=== PATIENT | female | born 1995 | race Caucasian/White ===

== ENCOUNTER 2023-04-27 09:07 | Outpatient (OUT) | payer OTHER, MEDICAID, SELFPAY ==
--- NOTE | 2023-04-27 09:08 | US_ITS ---
[address] [address] Patient Name: LILIBETH BELTRAN MRN: [id number] date: 1995 Sex: F Assigned Patient Location: Current Patient Location: Accession/Order Number: [id number] Exam Date: 04/27/2023 09:09 Report Date: 04/27/2023 15:13 At the request of: JANE ORTEZ Procedure: US OB transvaginal EXAMINATION: US OB transvaginal HISTORY: MISSED MENSES COMPARISON: No relevant comparison available. FINDINGS: GESTATIONAL SAC: Present and normal appearing. YOLK SAC: Present and normal appearing. POLE: Present and normal appearing. CARDIAC: Present. UTERUS: Normal size and appearance. OVARIES: Right: Normal. Left: Not seen. CERVIX: 3.9 cm in length and closed. CUL-DE-SAC: Normal. OTHER: None. AGE BY LMP: 11 weeks 3 days ELISEO BY LMP: 11/13/2023 AGE BY US CRL: 11 weeks 3 days ELISEO BY US CRL: 11/13/2023 US/US OB transvaginal IMPRESSION: 1. Single live intrauterine . Electronically authenticated by: ANDREW STERLING Date: 04/27/2023 15:13
[2023-04-27 10:48] LABS: Basophils Absolute Auto 0.1 10^3/uL (0.0-0.1); Basophils Percent Auto 0.5 % (0.2-2.0); Eosinophils Percent Auto 0.3 % (0.9-7.0); Hematocrit 38.7 % (36.0-48.0); Hemoglobin 13.1 g/dL (12.0-16.0); Immature Granulocytes Abs Auto 0.04 10^3/uL (0.00-0.03); Immature Granulocytes Pct Auto 0.3 % (0.0-0.5); Lymphocytes Percent Auto 15.6 % (20.5-60.0); Mean Corpuscular HGB Conc 33.9 g/dL (29.9-35.2); Mean Corpuscular Hemoglobin 30.8 pg (26.7-34.0); Mean Corpuscular Volume 90.8 fL (81.0-99.0); Mean Platelet Volume 11.9 fL (9.5-13.5); Monocytes Absolute Auto 0.5 10^3/uL (0.3-0.8); Neutrophils Percent Auto 79.3 % (43.0-75.0); Platelet Count 218 10^3/uL (150-450); Red Blood Count 4.26 10^6/uL (4.20-5.40); Red Cell Distribution Width 12.9 % (11.0-15.0); White Blood Count 12.6 10^3/uL (4.0-11.0)
[2023-04-27 11:25] LABS: BOX Test Sent Out Y
[2023-04-27 11:53] LABS: Estimated Average Glucose 100 mg/dL; Glycohemoglobin A1C 5.1 % (4.5-6.2)
[2023-04-27 12:46] LABS: Thyroid Stimulating Hormone 0.795 uIU/mL (0.358-3.740)
[2023-04-28 08:12] LABS: HBsAg Screen Negative (Negative); HCV Ab Non Reactive (Non Reactive); HIV Ab/p24 Ag Screen Non Reactive (Non Reactive); Rubella Antibodies, IgG 4.04 index (Immune >0.99)
[2023-04-28 10:08] LABS: Rapid Plasma Reagin, Quant Non Reactive titer (NonRea<1:1)
== END 2023-04-27 09:08 | disposition home or self-care (01) ==
PROVIDERS: Visit Provider Obstetrics & Gynecology
DX: Z34.91 Encounter for supervision of normal pregnancy, unspecified, first trimester (principal); N92.6 Irregular menstruation, unspecified
CPT/HCPCS: 36415; 76817; 83036; 84443; 85025; 86592; 86762; 86803; 86850; 86900; 86901; 87086; 87340; 87389

== ENCOUNTER 2023-05-28 09:35 | Outpatient (OUT) | payer OTHER, MEDICAID, SELFPAY ==
[2023-05-30 00:07] LABS: AFP Value 39.8 ng/mL (.); Gest. Age on Collection Date 15.9 weeks (.); Insulin Dep Diabetes No (.); Maternal Age At EDD 29.9 yr (.); OSBR Risk 1 IN 10000 (.); Results Report (.)
== END 2023-05-28 09:36 | disposition home or self-care (01) ==
LOC: LAB 09:35
PROVIDERS: Visit Provider Obstetrics & Gynecology
DX: Z01.419 Encounter for gynecological examination (general) (routine) without abnormal findings (principal); Z34.92 Encounter for supervision of normal pregnancy, unspecified, second trimester
CPT/HCPCS: 36415; 82105; G0145

== ENCOUNTER 2023-05-28 20:17 | Outpatient (REF) | payer OTHER, MEDICAID, SELFPAY ==
[2023-06-01 16:09] LABS: Age Gdln ACOG Testing Note (.); IGP, rfx Aptima HPV ASCU Note (.)
== END 2023-05-28 20:18 | disposition home or self-care (01) ==
LOC: LAB 20:17
PROVIDERS: Visit Provider Obstetrics & Gynecology
DX: Z01.419 Encounter for gynecological examination (general) (routine) without abnormal findings (principal)
CPT/HCPCS: G0145

== ENCOUNTER 2023-06-27 08:25 | Outpatient (OUT) | payer OTHER, MEDICAID, SELFPAY ==
--- NOTE | 2023-06-27 08:28 | US_ITS ---
[address] [address] Patient Name: LILIBETH BELTRAN MRN: [id number] date: 1995 Sex: F Assigned Patient Location: Current Patient Location: Accession/Order Number: [id number] Exam Date: 06/27/2023 08:29 Report Date: 06/27/2023 15:40 At the request of: JANE ORTEZ Procedure: US OB cervical length EXAMINATION: US OB anatomy, US OB cervical length HISTORY: ANATOMY COMPARISON: No relevant comparison available. TECHNIQUE: Transabdominal sonographic examination was performed for obstetrical and evaluation. FINDINGS: Number: 1 Heart Rate: 151.0 bpm H.B. /min Amniotic Fluid Volume: Subjectively normal Placental Location: anterior with lower margin 5.6 cm from os. Cervix Length: 5 cm , closed. ANATOMY: Normal Structures -cerebellum, choroid plexus, cisterna magna, lateral cerebral ventricles, orbits, midline falx, hard palate, four-chamber heart, RVOT, LVOT, stomach, kidneys, bladder, umbilical cord insertion into abdomen, three-vessel cord, cervical spine, thoracic spine, lumbar spine, sacral spine, right upper extremity, left upper extremity, right lower extremity, left lower extremity. SUBOPTIMALLY SEEN: None ABNORMALITIES: None BIOMETRY: BPD: 4.4 cm 19 weeks 3 days HC: 17.6 cm 20 weeks 1 days AC: 15.3 cm 20 weeks 4 days FL: 3.2 cm 20 weeks 0 days EFW:341.7 grams; 52% FL/AC: 21.0 FL/BPD: 72.7 HC/AC: 1.2 GESTATIONAL AGE: Age by EDC: 20 weeks 1 days ELISEO by EDC: 11/13/2023 Age by current US: 20 weeks 0 days ELISEO by current US: 11/14/2023 US/US OB cervical length IMPRESSION: 1. Single live intrauterine with growth detailed above. Electronically authenticated by: ANDREW STERLING Date: 06/27/2023 15:40
--- NOTE | 2023-06-27 08:28 | US_ITS ---
[address] [address] Patient Name: LILIBETH BELTRAN MRN: [id number] date: 1995 Sex: F Assigned Patient Location: Current Patient Location: Accession/Order Number: [id number] Exam Date: 06/27/2023 08:29 Report Date: 06/27/2023 15:40 At the request of: JANE ORTEZ Procedure: US OB anatomy EXAMINATION: US OB anatomy, US OB cervical length HISTORY: ANATOMY COMPARISON: No relevant comparison available. TECHNIQUE: Transabdominal sonographic examination was performed for obstetrical and evaluation. FINDINGS: Number: 1 Heart Rate: 151.0 bpm H.B. /min Amniotic Fluid Volume: Subjectively normal Placental Location: anterior with lower margin 5.6 cm from os. Cervix Length: 5 cm , closed. ANATOMY: Normal Structures -cerebellum, choroid plexus, cisterna magna, lateral cerebral ventricles, orbits, midline falx, hard palate, four-chamber heart, RVOT, LVOT, stomach, kidneys, bladder, umbilical cord insertion into abdomen, three-vessel cord, cervical spine, thoracic spine, lumbar spine, sacral spine, right upper extremity, left upper extremity, right lower extremity, left lower extremity. SUBOPTIMALLY SEEN: None ABNORMALITIES: None BIOMETRY: BPD: 4.4 cm 19 weeks 3 days HC: 17.6 cm 20 weeks 1 days AC: 15.3 cm 20 weeks 4 days FL: 3.2 cm 20 weeks 0 days EFW:341.7 grams; 52% FL/AC: 21.0 FL/BPD: 72.7 HC/AC: 1.2 GESTATIONAL AGE: Age by EDC: 20 weeks 1 days ELISEO by EDC: 11/13/2023 Age by current US: 20 weeks 0 days ELISEO by current US: 11/14/2023 US/US OB anatomy IMPRESSION: 1. Single live intrauterine with growth detailed above. Electronically authenticated by: ANDREW STERLING Date: 06/27/2023 15:40
== END 2023-06-27 08:26 | disposition home or self-care (01) ==
LOC: US 08:25
PROVIDERS: Visit Provider Obstetrics & Gynecology
DX: Z34.92 Encounter for supervision of normal pregnancy, unspecified, second trimester (principal); Z3A.20 20 weeks gestation of pregnancy
CPT/HCPCS: 76805; 76817

== ENCOUNTER 2023-10-09 16:59 | Outpatient (OUT) | payer OTHER, MEDICAID, SELFPAY ==
--- NOTE | 2023-10-09 17:04 | US_ITS ---
[address] [address] Patient Name: LILIBETH BELTRAN MRN: [id number] date: 1995 Sex: F Assigned Patient Location: Current Patient Location: Accession/Order Number: [id number] Exam Date: 10/09/2023 17:23 Report Date: 10/10/2023 07:26 At the request of: JANE ORTEZ Procedure: US OB growth EXAMINATION: US OB growth HISTORY: small for gestational age P05.10 COMPARISON: Ultrasound OB anatomy 06/27/2023 FINDINGS: Heart Rate: 133.0 bpm Number: 1.0 Position: CEPHALIC Amniotic Fluid Volume: 18.1 cm Maximum Vertical Pocket: 8.9 cm BIOMETRY: BPD: 8.3 cm cm; 33 weeks 3 days; 14% HC: 32.5 cmcm; 36 weeks 6 days ; 63% AC: 31.3 cm cm; 35 weeks 2 days; 65% FL: 6.7 cm cm; 34 weeks 5 days; 34% EFW: 2589.5 grams; 49% FL/AC: 21.5 FL/BPD: 81.0 HC/AC: 1.0 GESTATIONAL AGE: Age by EDC: 35 weeks 0 days ELISEO by EDC: 11/13/2023 Age by US: 35 weeks 1 day ELISEO by US: 11/12/2023 US/US OB growth IMPRESSION: 1. Single live intrauterine with growth detailed above. Electronically authenticated by: ANDREW STERLING Date: 10/10/2023 07:26
--- OUTSIDE RECORDS SUMMARY | 2023-10-09 17:05 | XMS_ITS | CCD ---
Author Name Unknown Address [address] [place] [address] Organization [facility] Care Team Providers Care Topographical Field Assistant Name Role Phone MATTI VENEGAS Unavailable Unavailable RADHA MEMBRENO Unavailable Unavailable HALLIE, DR ANDREW Lance Consulting Unavailable RADHA MEMBRENO Attending Unavailable RADHA MEMBRENO Admitting Unavailable MISC, DR MISHRA Primary Care Unavailable RADHA MEMBRENO Consulting Unavailable RADHA MEMBRENO Consulting Unavailable RADHA MEMBRENO Attending Unavailable RADHA MEMBRENO Admitting Unavailable MISC, DR MISHRA Primary Care Unavailable RADHA MEMBRENO Consulting Unavailable RADHA MEMBRENO Attending Unavailable RADHA MEMBRENO Admitting Unavailable CHERIERENatalio, DR VINCENT Juárez Primary Care Unavailable RADHA MEMBRENO Attending Unavailable RADHA MEMBRENO Admitting Unavailable RADHA MEMBRENO Consulting Unavailable MISC, DR MISHRA Primary Care Unavailable HALLIE, DR ANDREW Lance Consulting Unavailable RADHA MEMBRENO Attending Unavailable RADHA MEMBRENO Admitting Unavailable MISC, DR MISHRA Primary Care Unavailable RADHA MEMBRENO Consulting Unavailable PAKO, DR VINCENT Juárez Primary Care Unavailable JULIANNE, DR DOLAN Admitting Unavailable KARASIEmil, DR DOLAN Consulting Unavailable JULIANNE, DR DOLAN Attending Unavailable HALLIE, DR ANDREW Lance Consulting Unavailable GRICELDA, DR LARA Consulting Unavailable GRICELDA, DR LARA Attending Unavailable GRICELDA, DR LARA Admitting Unavailable MISC, DR MISHRA Primary Care Unavailable RADHA MEMBRENO Attending Unavailable RADHA MEMBRENO Admitting Unavailable PAKO, DR VINCENT Juárez Primary Care Unavailable GRICELDA, DR LARA Attending Unavailable GRICELDA, DR LARA Procedure Practitioner Unavailab le GRICELDA, DR LARA Admitting Unavailable GRICELDA, DR LARA Consulting Unavailable MISC, DR MISHRA Primary Care Unavailable RADHA MEMBRENO Consulting Unavailable CANELO FAJARDO Consulting Unavailable RADHA MEMBRENO Attending Unavailable RADHA MEMBRENO Admitting Unavailable RADHA MEMBRENO Consulting Unavailable DR VINCENT MIN Primary Care Unavailable RADHA MEMBRENO Attending Unavailable RADHA MEMBRENO Admitting Unavailable RADHA MEMBRENO Consulting Unavailable DR VINCENT MIN Primary Care Unavailable JANE MADISON Referring Unavailable VINCENT MIN Primary Care Unavailable Vincent Min MD Primary Care Provider JANE MADISON Attending Unavailable JACOBO VAN Attending Unavailable JACOBO VAN Attending Unavailable JANE MADISON Attending Unavailable JANE MADISON Attending Unavailable JANE MADISON Attending Unavailable Allergies Allergy Classification Reported Allergen(s) Allergy Type Date of Onset Reaction(s) Facility (1 source) nabumetone Drug Allergy [facility] Repository (1 source) oxyCODONE Drug Allergy [facility] Medications Current Medications Medication Drug Class(es) Dates Sig (Normalized) Sig (Original) aspirin 81 mg delayed release oral tablet (2 sources) Platelet Aggregation Inhibitor, Nonsteroidal Anti-inflammatory Drug take 1 tablet by mouth in the morning aspirin 81 MG EC tablet Take 81 mg by mouth in the morning. 0 Active omeprazole 20 mg delayed release oral capsule (2 sources) Proton Pump Inhibitor Start: 05-28-2023 End: 05-27-2024 take 1 capsule by mouth once before mealtime omeprazole (PriLOSEC) [address] capsule Indications: Heartburn during in second trimester Take 1 capsule (20 mg) by mouth in the morning. Take before meals. Do not crush or chew. . 30 capsule 11 05/28/2023 05/27/2024 Active MV-Min-Fe Fum-FA-DHA ( 1 PO) (2 sources) MV-Min- Fe Fum-FA-DHA ( 1 PO) Take by mouth. 0 Active valACYclovir 500 mg oral tablet (2 sources) Herpesvirus Nucleoside Analog DNA Polymerase Inhibitor, Herpes Simplex Virus Nucleoside Analog DNA Polymerase Inhibitor, Herpes Zoster Virus Nucleoside Analog DNA Polymerase Inhibitor Start: 09-05-2023 End: 11-04-2023 take 1 tablet by mouth in the morning valACYclovir (Valtrex) 500 MG tablet Indications: Genital 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 Take 1 tablet (500 mg) by mouth in the morning. 30 tablet 1 09/05/2023 11/04/2023 Active Problems Active Problems Problem Classification Problem Date Documented Date Episodic/Chronic Hypertension complicating ; childbirth and the puerperium (4 sources) Unspecified maternal hypertension, third trimester; Translations: [UNS MATERNAL HTN THIRD TRIMESTER] Onset: 04-01-2021 Chronic Menstrual disorders (3 sources) Secondary amenorrhea; Translations: [SECONDARY AMENORRHEA] Onset: 10-18-2020 Chronic Other complications of ; puerperium affecting management of mother (1 source) Smoking (tobacco) complicating childbirth; Translations: [SMOKING TOBACCO COMP CHILDBIRTH] Onset: 04-14-2021 Episodic Other complications of (4 sources) Maternal care for other known or suspected poor growth, third trimester, not applicable or unspecified; Translations: [MAT CARE OTH NM FTL GRTH 3RD TM UNS] Onset: 02-25-2021 Episodic Other complications of (4 sources) Supervision of other high risk pregnancies, unspecified trimester; Translations: [SUP OTH HIGH RISK UNS TRI] Onset: 03-28-2021 Episodic Other complications of (1 source) Supervision of other high risk pregnancies, third trimester; Translations: [SUP OTH HIGH RISK 3RD TRI] Onset: 03-29-2021 Episodic Other complications of (2 sources) Genital herpes simplex in mother complicating ; Translations: [Other infections with a predominantly sexual mode of transmission complicating , third trimester] 09-05-2023 Episodic Other liver diseases (1 source) Abnormal levels of other serum enzymes; Translations: [ABNORMAL LEVELS OTHER SERUM ENZYMES] Onset: 04-13-2021 Episodic Other and delivery including normal (12 sources) Single live ; Translations: [Encounter for supervision of normal , unspecified, third trimester] Onset: 10-22-2020 Episodic Other screening for suspected conditions (not mental disorders or infectious disease) (5 sources) Encounter for screening for malignant neoplasm of cervix; Translations: [Encounter for screening for diabetes mellitus] Onset: 11-18-2020 Episodic Polyhydramnios and other problems of amniotic cavity (1 source) Full-term premature rupture of membranes, unspecified as to length of time between rupture and onset of labor; Translations: [FT PROM UNS TM BTWN RUPT ONSET LABR] Onset: 04-14-2021 Episodic Residual codes; unclassified (1 source) 38 weeks gestation of ; Translations: [38 WEEKS GESTATION OF ] Onset: 04-14-2021 Episodic Residual codes; unclassified (1 source) 37 weeks gestation of ; Translations: [37 WEEKS GESTATION OF ] Onset: 04-13-2021 Episodic Residual codes; unclassified (1 source) 32 weeks gestation of ; Translations: [32 WEEKS GESTATION OF ] Onset: 02-25-2021 Episodic Substance-related disorders (1 source) Nicotine dependence, cigarettes, uncomplicated; Translations: [NICOTINE DEPEND CIGARETTES UNCOMP] Onset: 04-14-2021 Chronic Unclassified (1 source) Unknown / UNK(Unknown) Onset: 02-23-2017 Past or Other Problems Problem Classification Problem Date Documented Date Episodic/Chronic Immunizations and screening for infectious disease (1 source) Encounter for screening for infections with a predominantly sexual mode of transmission; Translations: [ENC SCREEN INFECTIONS SEXL TRANSMS] Onset: 11-23-2020 Episodic Other complications of (4 sources) Supervision of with other poor reproductive or obstetric history, unspecified trimester; Translations: [SUP PG OTH POOR REPROD/OB HX UNS TM] Onset: 11-02-2020 Episodic Results Test Name Value Interpretation Reference Range Facility Urinalysis macro (dipstick) panel (U)Ordered By: Donna Ron on 09-05-2023 Bilirubin, UA Negative Negative - 4(70) +++ mg/dL [facility] Blood, UA Negative Negative - 50 Kendell/mcL [facility] Clarity, UA Clear [facility] re Color, UA Yellow [facility] Glucose, UA Negative Negative - 1999(110) ++++ mg/dL [facility] Interpretation and review of laboratory results Normal [facility] re Ketones, UA Negative Negative - 160(16) ++++ mg/dL [facility] Leukocytes, UA Negative Negative - 500+++ Laureen/mcL [facility] Nitrite, UA Negative Negative - Positive [facility] pH, UA 6.0 5 - 9 [facility] Protein, UA Negative Negative - 1999(20) ++++ mg/dL [facility] Spec Grav, UA 1.010 1 - 1.03 [facility] Urobilinogen, UA 0.2 0.2 - 12 mg/dL [facility] CBC AND AUTO DIFFon 08-09-19 24 ABSOLUTE BASOPHIL 0.0 X10E9/L Normal 0.0-0.2 [facility] Comment on above: Performed By: #### 1 504-0, CBCA #### [facility] ([id number]) [address], [address] [place] [address] ABSOLUTE NEUTROPHIL 11.6 X10E9/L High 1.5-6.6 [facility] Comment on above: Performed By: #### 1 504-0, CBCA #### [facility] ([id number]) [address], [address] [place] [address] Basophils/100 WBC (Bld) 0.2 % Normal [facility] Comment on above: Performed By: #### 1 504-0, CBCA #### [facility] ([id number]) [address], [address] [place] [address] Eosinophils (Bld) [#/Vol] 0.2 10*3/uL Normal 0.0-0.4 [facility] Comment on above: Performed By: #### 1 504-0, CBCA #### [facility] ([id number]) [address], [address] [place] [address] Eosinophils/100 WBC (Bld) 1.1 % Normal [facility] Comment on above: Performed By: #### 1 504-0, CBCA #### [facility] ([id number]) [address], [address] [place] [address] Erythrocyte distribution width (RBC) [Ratio] 14.6 % Normal 11.5-15.0 [facility] Comment on above: Performed By: #### 1 504-0, CBCA #### [facility] ([id number]) [address], [address] [place] [address] Hematocrit (Bld) [Volume fraction] 37.0 % Normal 35-47 [facility] Comment on above: Performed By: #### 1 504-0, CBCA #### [facility] ([id number]) [address], [address] [place] [address] Hemoglobin (Bld) [Mass/Vol] 12.3 g/dL Normal 11.7-15.5 [facility] Comment on above: Performed By: #### 1 504-0, CBCA #### [facility] ([id number]) [address], [address] [place] [address] Lymphocytes (Bld) [#/Vol] 2.1 10*3/uL Normal 1.0-3.5 [facility] Comment on above: Performed By: #### 1 504-0, CBCA #### [facility] ([id number]) [address], [facility] [address] [place] [address] Lymphocytes/100 WBC (Bld) 14.5 % Normal [facility] Comment on above: Performed By: #### 1 504-0, CBCA #### [facility] ([id number]) [address] [place] [address] MCH (RBC) [Entitic mass] 31.5 pg Normal 27-34 [facility] Comment on above: Performed By: #### 1 504-0, CBCA #### [facility] ([id number]) [address] [place] [address] MCHC (RBC) [Mass/Vol] 33.1 g/dL Normal 32-36 [facility] Comment on above: Performed By: #### 1 504-0, CBCA #### [facility] ([id number]) [address] [place] [address] MCV (RBC) [Entitic vol] 95 fL Normal 80-100 [facility] Comment on above: Performed By: #### 1 504-0, CBCA #### [facility] ([id number]) [address], [address] [place] [address] Monocytes (Bld) [#/Vol] 0.4 10*3/uL Normal 0-0.9 [facility] Comment on above: Performed By: #### 1 504-0, CBCA #### [facility] ([id number]) [address], [address] [place] [address] Monocytes/100 WBC (Bld) 2.7 % Normal [facility] Comment on above: Performed By: #### 1 504-0, CBCA #### [facility] ([id number]) [address], [address] [place] [address] Neutrophils/100 WBC (Bld) 81.5 % Normal [facility] Comment on above: Performed By: #### 1 504-0, CBCA #### [facility] ([id number]) [address], [address] [place] [address] Platelet mean volume (Bld) [Entitic vol] 10.6 fL Normal 7-12 [facility] Comment on above: Performed By: #### 1 504-0, CBCA #### [facility] ([id number]) [address], [address] [place] [address] Platelets (Bld) [#/Vol] 199 10*3/uL Normal 150-450 [facility] Comment on above: Performed By: #### 1 504-0, CBCA #### [facility] ([id number]) [address], [address] [place] [address] RBC COUNT 3.89 X10E12/L Normal 3.80-5.20 [facility] Comment on above: Performed By: #### 1 504-0, CBCA #### [facility] ([id number]) [address], [address] [place] [address] WBC (Bld) [#/Vol] 14.2 10*3/uL High 4.0-11.0 [facility] Comment on above: Performed By: #### 1 504-0, CBCA #### [facility] ([id number]) [address] [place] [address] Glucose 1 Hr post 50 g gluco se PO [Mass/Vol]on 08-09-2023 GLU 1H POST 50G LOAD 106 mg/dL Normal 65-139 [facility] Comment on above: Performed By: #### 1 504-0, CBCA #### [facility] ([id number]) [address] [place] [address] CBC W MANUAL DIFFon 04-06-20 21 ATYPICAL LYMPH # Normal [facility] Comment on above: Performed By: #### A ST, URIC, LDH, ALT #### [facility] [address] [address] Anabella Shalonda ATYPICAL LYMPH % Normal [facility] Comment on above: Performed By: #### A ST, URIC, LDH, ALT #### [facility] [address] [address] Anabella Shalonda BAND # Normal 0.0-0.3 [facility] Comment on above: Performed By: #### A ST, URIC, LDH, ALT #### [facility] [address] [address] Anabella Shalonda BAND % Normal 0-5 [facility] Comment on above: Performed By: #### A ST, URIC, LDH, ALT #### [facility] [address] [address] Anabella Shalonda BASOM # 0.00 103/ul Normal 0.00-0.10 [facility] Comment on above: Performed By: #### A ST, URIC, LDH, ALT #### [facility] [address] [address] Anabella Shalonda BASOM % 0.0 % Critically low 0.2-2.0 [facility] Comment on above: Performed By: #### A ST, URIC, LDH, ALT #### [facility] [address] [address] Anabella Shalonda BLAST # Normal [facility] Comment on above: Performed By: #### A ST, URIC, LDH, ALT #### [facility] [address] [id number] Anabella Shalonda BLAST % Normal [facility] Comment on above: Performed By: #### A ST, URIC, LDH, ALT #### [facility] [address] [address] Anabella Shalonda CORRECTED WBC Normal 4.0-11.0 [facility] Comment on above: Performed By: #### A ST, URIC, LDH, ALT #### [facility] [address] [place] [address] Anabella Shalonda EOS # 0.15 103/ul Normal 0.00-0.70 [facility] Comment on above: Performed By: #### A ST, URIC, LDH, ALT #### [facility] [address] [place] [address] Anabella Shalonda EOS% 1.0 % Normal 0.9-7.0 [facility] Comment on above: Performed By: #### A ST, URIC, LDH, ALT #### [facility] [address] [place] [address] Anabella Shalonda HCT 32.4 % Critically low 36.0-48.0 [facility] Comment on above: Performed By: #### A ST, URIC, LDH, ALT #### [facility] [address] [place] [address] Anabella Shalonda HGB 10.5 g/dl Critically low 12.0-16.0 [facility] Comment on above: Performed By: #### A ST, URIC, LDH, ALT #### [facility] [address] [place] [address] Anabella Shalonda LYMPHM # 2.68 103/ul Normal 1.20-3.80 [facility] Comment on above: Performed By: #### A ST, URIC, LDH, ALT #### [facility] [address] [place] [address] Anabella Shalonda LYMPHM% 18.0 % Critically low 20.5-60.0 [facility] Comment on above: Performed By: #### A ST, URIC, LDH, ALT #### [facility] [address] [id number] Anabellacarissa Pierceen MCH 30.8 pg Normal 26.7-34.0 [facility] Comment on above: Performed By: #### A ST, URIC, LDH, ALT #### [facility] [address] [place] [address] Anabellacarissa Pierceen MCHC 32.4 g/dl Normal 29.9-35.2 [facility] Comment on above: Performed By: #### A ST, URIC, LDH, ALT #### [facility] [address] [place] [address] Anabella Shalonda MCV 95.0 fL Normal 81.0-99.0 [facility] Comment on above: Performed By: #### A ST, URIC, LDH, ALT #### [facility] [address] [place] [address] Anabella Shalonda METAMYELOCYTE # Normal [facility] Comment on above: Performed By: #### A ST, URIC, LDH, ALT #### [facility] [address] [place] [address] Anabella Shalonda METAMYELOCYTE % Normal [facility] Comment on above: Performed By: #### A ST, URIC, LDH, ALT #### [facility] [address] [place] [address] Anabella Shalonda MONOM# 0.30 103/ul Normal 0.30-0.80 [facility] Comment on above: Performed By: #### A ST, URIC, LDH, ALT #### [facility] [address] [place] [address] Anabella Shalonda MONOM% 2.0 % Normal 1.7-12.0 [facility] Comment on above: Performed By: #### A ST, URIC, LDH, ALT #### [facility] [address] [place] [address] Anabella Shalonda MPV 13.5 fL Normal 9.5-13.5 [facility] Comment on above: Performed By: #### A ST, URIC, LDH, ALT #### [facility] [address] [address] Anabella Liz MYELOCYTE # Normal [facility] Comment on above: Performed By: #### A ST, URIC, LDH, ALT #### [facility] [address] [address] Anabella Liz MYELOCYTE % Normal [facility] Comment on above: Performed By: #### A ST, URIC, LDH, ALT #### [facility] [address] [address] Anabella Pierceen NRBC Normal [facility] Comment on above: Performed By: #### A ST, URIC, LDH, ALT #### [facility] [address] [address] Anabellacarissa Pierceen PLT 120 103/ul Critically low 150-450 [facility] Comment on above: Performed By: #### A ST, URIC, LDH, ALT #### [facility] [address] [address] Anabella Liz RBC 3.41 106/ul Critically low 4.20-5.40 [facility] Comment on above: Performed By: #### A ST, URIC, LDH, ALT #### [facility] [address] [place] [address] Anabella Liz RDW 15.3 % Critically high 11.0-15.0 [facility] Comment on above: Performed By: #### A ST, URIC, LDH, ALT #### [facility] [address] [place] [address] Anabella Pierceen SEG # 11.77 103/ul Critically high 1.40-6.50 [facility] Comment on above: Performed By: #### A ST, URIC, LDH, ALT #### [facility] [address] [address] Anabella Shalonda SEG % 79.0 % Critically high 43.0-75.0 [facility] Comment on above: Performed By: #### A ST, URIC, LDH, ALT #### [facility] [address] [address] Anabellacarissa Pierceen WBC 14.9 103/ul Critically high 4.0-11.0 [facility] Comment on above: Performed By: #### A ST, URIC, LDH, ALT #### [facility] [address] [place] [address] Anabella Shalonda CBC AUTO DIFFon 04-05-2021 BASO # 0.1 103/ul Normal 0.0-0.1 [facility] Comment on above: Performed By: #### A ST, URIC, LDH, ALT #### [facility] [address] [place] [address] Anabella Shalonda Basophils/100 WBC (Bld) 0.4 % Normal 0.2-2.0 [facility] Comment on above: Performed By: #### A ST, URIC, LDH, ALT #### [facility] [address] [place] [address] Anabella Shalonda EO # 0.1 103/ul Normal 0.0-0.7 [facility] Comment on above: Performed By: #### A ST, URIC, LDH, ALT #### [facility] [address] [place] [address] Anabella Shalonda Eosinophils/100 WBC (Bld) 0.7 % Critically low 0.9-7.0 [facility] Comment on above: Performed By: #### A ST, URIC, LDH, ALT #### [facility] [address] [place] [address] Anabella Shalonda Erythrocyte distribution width (RBC) [Ratio] 15.2 % Critically high 11.0-15.0 [facility] Comment on above: Performed By: #### A ST, URIC, LDH, ALT #### [facility] [address] [place] [address] Anabella Shalonda Hematocrit (Bld) [Volume fraction] 35.9 % Critically low 36.0-48.0 [facility] Comment on above: Performed By: #### A ST, URIC, LDH, ALT #### [facility] [address] [place] [address] Anabella Shalonda Hemoglobin (Bld) [Mass/Vol] 11.7 g/dL Critically low 12.0-16.0 [facility] Comment on above: Performed By: #### A ST, URIC, LDH, ALT #### [facility] [address] [address] Anabella Shalonda IG # 0.09 10e3/ul Critically high 0.00-0.03 [facility] Comment on above: Performed By: #### A ST, URIC, LDH, ALT #### [facility] [address] [place] [address] Anabella Shalonda IG % 0.7 % Critically high 0.0-0.5 [facility] Comment on above: Performed By: #### A ST, URIC, LDH, ALT #### [facility] [address] [place] [address] Anabella Shalonda LYMPH # 1.9 103/ul Normal 1.2-3.8 [facility] Comment on above: Performed By: #### A ST, URIC, LDH, ALT #### [facility] [address] [place] [address] Anabellacarissa Liz Lymphocytes/100 WBC (Bld) 14.5 % Critically low 20.5-60.0 [facility] Comment on above: Performed By: #### A ST, URIC, LDH, ALT #### [facility] [address] [place] [address] Anabellacarissa Liz MANUAL DIFF REQ NO Normal [facility] Comment on above: Performed By: #### A ST, URIC, LDH, ALT #### [facility] [address] [place] [address] Anabellacarissa Pierceen MCH (RBC) [Entitic mass] 30.2 pg Normal 26.7-34.0 [facility] Comment on above: Performed By: #### A ST, URIC, LDH, ALT #### [facility] [address] [place] [address] Anabellacarissa Liz MCHC (RBC) [Mass/Vol] 32.6 g/dL Normal 29.9-35.2 [facility] Comment on above: Performed By: #### A ST, URIC, LDH, ALT #### [facility] [address] [place] [address] Anabella Shalonda MCV (RBC) [Entitic vol] 92.5 fL Normal 81.0-99.0 [facility] Comment on above: Performed By: #### A ST, URIC, LDH, ALT #### [facility] [address] [address] Anabellacarissa Liz MONO # 0.7 103/ul Normal 0.3-0.8 [facility] Comment on above: Performed By: #### A ST, URIC, LDH, ALT #### [facility] [address] [place] [address] Anabella Shalonda Monocytes/100 WBC (Bld) 5.1 % Normal 1.7-12.0 [facility] Comment on above: Performed By: #### A ST, URIC, LDH, ALT #### [facility] [address] [place] [address] Anabella Shalonda NEUT # 10.4 103/ul Critically high 1.4-6.5 [facility] Comment on above: Performed By: #### A ST, URIC, LDH, ALT #### [facility] [address] [place] [address] Anabella Shalonda Neutrophils/100 WBC (Bld) 78.6 % Critically high 43.0-75.0 [facility] Comment on above: Performed By: #### A ST, URIC, LDH, ALT #### [facility] [address] [place] [address] Anabella Shalonda Platelet mean volume (Bld) [Entitic vol] 13.3 fL Normal 9.5-13.5 [facility] Comment on above: Performed By: #### A ST, URIC, LDH, ALT #### [facility] [address] [place] [address] Anabella Shalonda PLT 142 103/ul Critically low 150-450 [facility] Comment on above: Performed By: #### A ST, URIC, LDH, ALT #### [facility] [address] [place] [address] Anabella Shalonda RBC 3.88 106/ul Critically low 4.20-5.40 [facility] Comment on above: Performed By: #### A ST, URIC, LDH, ALT #### [facility] [address] [address] Anabella Liz WBC 13.2 103/ul Critically high 4.0-11.0 [facility] Comment on above: Performed By: #### A ST, URIC, LDH, ALT #### [facility] [address] [place] [address] Anabella Liz DRUG SCREEN RAPID (URINE)on 04-05-2021 AMP Negative Normal NEGATIVE [facility] Comment on above: Performed By: #### D RUGRPD #### [facility] [address] [place] [address] Anabella Shalonda BAR Negative Normal NEGATIVE [facility] Comment on above: Performed By: #### D RUGRPD #### [facility] [address] [place] [address] Anabella Shalonda BUP Negative Normal NEGATIVE [facility] Comment on above: Performed By: #### D RUGRPD #### [facility] [address] [place] [address] Anabella Shalonda BZO Negative Normal NEGATIVE [facility] Comment on above: Performed By: #### D RUGRPD #### [facility] [address] [place] [address] Anabellacarissa Liz JP Negative Normal NEGATIVE [facility] Comment on above: Performed By: #### D RUGRPD #### [facility] [address] [place] [address] Anabella Shalonda CUT-OFFS SEE BELOW Normal [facility] Comment on above: Result Comment: AMP (Amphetamine): 500ng/mL, BAR (Barbituates): 200 ng/mL, BZO (Benzodiazepines): 150 ng/mL, BUP (Buprenorphine): 10 ng/mL, JP (Cocaine): 150 ng/mL, mAMP (Methamphetamine): 500 ng/mL, MTD (Methadone): 200 ng/mL, OPI (Opiates): 100 ng/mL, OXY (Oxycodone): 100 ng/mL, PCP (Phencyclidine): 25 ng/mL, PPX (Propoxyphene): 300 ng/mL, THC (Cannabinoids): 50 ng/mL, TCA (Trycyclic Antidepressants): 300 ng/mL Performed By: #### D RUGRPD #### [facility] [address] [place] [address] Anabella Shalonda DRUG CUT HEADER DRUG CLASS TEST SYSTEM CUT-OFF CONCENTRATIONS ARE FOLLOWS: Normal [facility] Comment on above: Performed By: #### D RUGRPD #### [facility] [address] [place] [address] Anabella Shalonda mAMP Negative Normal NEGATIVE [facility] Comment on above: Performed By: #### D RUGRPD #### [facility] [address] [place] [address] Anabella Shalonda MTD Negative Normal NEGATIVE [facility] Comment on above: Performed By: #### D RUGRPD #### [facility] [address] [place] [address] Anabella Shalonda OPI Negative Normal NEGATIVE [facility] Comment on above: Performed By: #### D RUGRPD #### [facility] [address] [place] [address] Anabella Shalonda OXY Negative Normal NEGATIVE [facility] Comment on above: Performed By: #### D RUGRPD #### [facility] [address] [place] [address] Anabella Shalonda PCP Negative Normal NEGATIVE [facility] Comment on above: Performed By: #### D RUGRPD #### [facility] [address] [place] [address] Anabella Shalonda PPX Negative Normal NEGATIVE [facility] Comment on above: Performed By: #### D RUGRPD #### [facility] [address] [place] [address] Anabella Shalonda TCA Negative Normal NEGATIVE [facility] Comment on above: Performed By: #### D RUGRPD #### [facility] [address] [place] [address] Anabella Shalonda THC Negative Normal NEGATIVE [facility] Comment on above: Performed By: #### D RUGRPD #### [facility] [address] [place] [address] Anabella Shalonda LDHon 09-07-2021 LDH 473 U/L Critically high 122-222 [facility] Comment on above: Performed By: #### A LT, LDH, AST, URIC #### [facility] [address] [place] [address] Anabella Liz SGOTon 04-05-2021 AST [Catalytic activity/Vol] 79 U/L Critically high 14-36 [facility] Comment on above: Performed By: #### A LT, LDH, AST, URIC #### [facility] [address] [place] [address] Anabella Liz SGPTon 04-05-2021 ALT [Catalytic activity/Vol] 81 U/L Critically high 9-52 [facility] Comment on above: Performed By: #### A LT, LDH, AST, URIC #### [facility] [address] [place] [address] Anabella Liz TYPE AND SCREENon 04-05-2021 TYPE AND SCREEN Antibody Screen NEGATIVE Blood Bank Notes completed by john ABO Rh Typing O Rh Positive Blood Bank Notes completed by john Chong [facility] Comment on above: Performed By: #### A ST, URIC, LDH, ALT #### [facility] [address] [place] [address] Anabella Liz URIC ACID SERUMon 04-05-2021 Urate [Mass/Vol] 7.7 mg/dL Critically high 2.5-6.2 [facility] Comment on above: Performed By: #### A LT, LDH, AST, URIC #### [facility] [address] [place] [address] Anabella Shalonda BUNon 03-28-2021 Urea nitrogen [Mass/Vol] 7.0 mg/dL Normal 7.0-17.0 [facility] Comment on above: Performed By: #### A ST, URIC, LDH, ALT #### [facility] [address] [place] [address] Anabella Pierceen CBC AUTO DIFFon 03-28-2021 BASO # 0.0 103/ul Normal 0.0-0.1 [facility] Comment on above: Performed By: #### A ST, URIC, LDH, ALT #### [facility] [address] [place] [address] Anabellacarissa Liz Basophils/100 WBC (Bld) 0.3 % Normal 0.2-2.0 [facility] Comment on above: Performed By: #### A ST, URIC, LDH, ALT #### [facility] [address] [place] [address] Anabellacarissa Liz EO # 0.1 103/ul Normal 0.0-0.7 [facility] Comment on above: Performed By: #### A ST, URIC, LDH, ALT #### [facility] [address] [place] [address] Anabella Liz Eosinophils/100 WBC (Bld) 1.1 % Normal 0.9-7.0 [facility] Comment on above: Performed By: #### A ST, URIC, LDH, ALT #### [facility] [address] [place] [address] Anabella Liz Erythrocyte distribution width (RBC) [Ratio] 14.7 % Normal 11.0-15.0 [facility] Comment on above: Performed By: #### A ST, URIC, LDH, ALT #### [facility] [address] [place] [address] Anabella Liz Hematocrit (Bld) [Volume fraction] 34.7 % Critically low 36.0-48.0 [facility] Comment on above: Performed By: #### A ST, URIC, LDH, ALT #### [facility] [address] [place] [address] Anabellacarissa Liz Hemoglobin (Bld) [Mass/Vol] 11.4 g/dL Critically low 12.0-16.0 [facility] Comment on above: Performed By: #### A ST, URIC, LDH, ALT #### [facility] [address] [place] [address] Anabellacarissa Liz IG # 0.09 10e3/ul Critically high 0.00-0.03 [facility] Comment on above: Performed By: #### A ST, URIC, LDH, ALT #### [facility] [address] [address] Anabella Shalonda IG % 0.7 % Critically high 0.0-0.5 [facility] Comment on above: Performed By: #### A ST, URIC, LDH, ALT #### [facility] [address] [place] [address] Anabella Shalonda LYMPH # 2.2 103/ul Normal 1.2-3.8 [facility] Comment on above: Performed By: #### A ST, URIC, LDH, ALT #### [facility] [address] [place] [address] Anabella Shalonda Lymphocytes/100 WBC (Bld) 16.5 % Critically low 20.5-60.0 [facility] Comment on above: Performed By: #### A ST, URIC, LDH, ALT #### [facility] [address] [place] [address] Anabella Shalonda MANUAL DIFF REQ NO Normal [facility] Comment on above: Performed By: #### A ST, URIC, LDH, ALT #### [facility] [address] [place] [address] Anabella Shalonda MCH (RBC) [Entitic mass] 30.4 pg Normal 26.7-34.0 [facility] Comment on above: Performed By: #### A ST, URIC, LDH, ALT #### [facility] [address] [place] [address] Anabella Shalonda MCHC (RBC) [Mass/Vol] 32.9 g/dL Normal 29.9-35.2 [facility] Comment on above: Performed By: #### A ST, URIC, LDH, ALT #### [facility] [address] [place] [address] Anabella Shalonda MCV (RBC) [Entitic vol] 92.5 fL Normal 81.0-99.0 [facility] Comment on above: Performed By: #### A ST, URIC, LDH, ALT #### [facility] [address] [place] [address] Anabella Shalonda MONO # 0.6 103/ul Normal 0.3-0.8 [facility] Comment on above: Performed By: #### A ST, URIC, LDH, ALT #### [facility] [address] [address] Anabellacarissa Pierceen Monocytes/100 WBC (Bld) 4.3 % Normal 1.7-12.0 [facility] Comment on above: Performed By: #### A ST, URIC, LDH, ALT #### [facility] [address] [place] [address] Anabellacarissa Pierceen NEUT # 10.2 103/ul Critically high 1.4-6.5 [facility] Comment on above: Performed By: #### A ST, URIC, LDH, ALT #### [facility] [address] [place] [address] Anabella Liz Neutrophils/100 WBC (Bld) 77.1 % Critically high 43.0-75.0 [facility] Comment on above: Performed By: #### A ST, URIC, LDH, ALT #### [facility] [address] [place] [address] Anabella Liz Platelet mean volume (Bld) [Entitic vol] 13.5 fL Normal 9.5-13.5 [facility] Comment on above: Performed By: #### A ST, URIC, LDH, ALT #### [facility] [address] [place] [address] Anabellacarissa Pierceen PLT 133 103/ul Critically low 150-450 [facility] Comment on above: Performed By: #### A ST, URIC, LDH, ALT #### [facility] [address] [place] [address] Anabella Shalonda RBC 3.75 106/ul Critically low 4.20-5.40 [facility] Comment on above: Performed By: #### A ST, URIC, LDH, ALT #### [facility] [address] [place] [address] Anabellacarissa Pierceen WBC 13.2 103/ul Critically high 4.0-11.0 [facility] Comment on above: Performed By: #### A ST, URIC, LDH, ALT #### [facility] [address] [place] [address] Anabella Shalonda BASO # 0.1 103/ul Normal 0.0-0.1 [facility] Comment on above: Performed By: #### A ST, URIC, LDH, ALT #### [facility] [address] [place] [address] Anabella Shalonda Basophils/100 WBC (Bld) 0.4 % Normal 0.2-2.0 [facility] Comment on above: Performed By: #### A ST, URIC, LDH, ALT #### [facility] [address] [place] [address] Anabella Shalonda EO # 0.2 103/ul Normal 0.0-0.7 [facility] Comment on above: Performed By: #### A ST, URIC, LDH, ALT #### [facility] [address] [place] [address] Anabella Shalonda Eosinophils/100 WBC (Bld) 1.4 % Normal 0.9-7.0 [facility] Comment on above: Performed By: #### A ST, URIC, LDH, ALT #### [facility] [address] [place] [address] Anabella Shalonda Erythrocyte distribution width (RBC) [Ratio] 14.9 % Normal 11.0-15.0 [facility] Comment on above: Performed By: #### A ST, URIC, LDH, ALT #### [facility] [address] [place] [address] Anabella Shalonda Hematocrit (Bld) [Volume fraction] 36.5 % Normal 36.0-48.0 [facility] Comment on above: Performed By: #### A ST, URIC, LDH, ALT #### [facility] [address] [place] [address] Anabella Shalonda Hemoglobin (Bld) [Mass/Vol] 11.8 g/dL Critically low 12.0-16.0 [facility] Comment on above: Performed By: #### A ST, URIC, LDH, ALT #### [facility] [address] [place] [address] Anabella Shalonda IG # 0.11 10e3/ul Critically high 0.00-0.03 [facility] Comment on above: Performed By: #### A ST, URIC, LDH, ALT #### [facility] [address] [address] Anabella Liz IG % 0.9 % Critically high 0.0-0.5 [facility] Comment on above: Performed By: #### A ST, URIC, LDH, ALT #### [facility] [address] [place] [address] Anabella Liz LYMPH # 2.0 103/ul Normal 1.2-3.8 [facility] Comment on above: Performed By: #### A ST, URIC, LDH, ALT #### [facility] [address] [place] [address] Anabella Liz Lymphocytes/100 WBC (Bld) 15.7 % Critically low 20.5-60.0 [facility] Comment on above: Performed By: #### A ST, URIC, LDH, ALT #### [facility] [address] [place] [address] Anabellacarissa Liz MANUAL DIFF REQ NO Normal [facility] Comment on above: Performed By: #### A ST, URIC, LDH, ALT #### [facility] [address] [place] [address] Anabella Liz MCH (RBC) [Entitic mass] 30.2 pg Normal 26.7-34.0 [facility] Comment on above: Performed By: #### A ST, URIC, LDH, ALT #### [facility] [address] [place] [address] Anabella Liz MCHC (RBC) [Mass/Vol] 32.3 g/dL Normal 29.9-35.2 [facility] Comment on above: Performed By: #### A ST, URIC, LDH, ALT #### [facility] [address] [place] [address] Anabella Liz MCV (RBC) [Entitic vol] 93.4 fL Normal 81.0-99.0 [facility] Comment on above: Performed By: #### A ST, URIC, LDH, ALT #### [facility] [address] [place] [address] Anabella Shalonda MONO # 0.7 103/ul Normal 0.3-0.8 [facility] Comment on above: Performed By: #### A ST, URIC, LDH, ALT #### [facility] [address] [address] Anabella Liz Monocytes/100 WBC (Bld) 5.2 % Normal 1.7-12.0 [facility] Comment on above: Performed By: #### A ST, URIC, LDH, ALT #### [facility] [address] [place] [address] Anabella Shalonda NEUT # 9.5 103/ul Critically high 1.4-6.5 [facility] Comment on above: Performed By: #### A ST, URIC, LDH, ALT #### [facility] [address] [place] [address] Anabella Pierceen Neutrophils/100 WBC (Bld) 76.4 % Critically high 43.0-75.0 [facility] Comment on above: Performed By: #### A ST, URIC, LDH, ALT #### [facility] [address] [place] [address] Anabella Liz Platelet mean volume (Bld) [Entitic vol] 13.8 fL Critically high 9.5-13.5 [facility] Comment on above: Performed By: #### A ST, URIC, LDH, ALT #### [facility] [address] [place], [place] [id number] Anabella Shalonda PLT 148 103/ul Critically low 150-450 [facility] Comment on above: Performed By: #### A ST, URIC, LDH, ALT #### [facility] [address] [place] [address] Anabella Shalonda RBC 3.91 106/ul Critically low 4.20-5.40 [facility] Comment on above: Performed By: #### A ST, URIC, LDH, ALT #### [facility] [address] [place] [address] Anabella Shalonda WBC 12.5 103/ul Critically high 4.0-11.0 [facility] Comment on above: Performed By: #### A ST, URIC, LDH, ALT #### [facility] [address] [place] [address] Anabella Shalonda CHLAMYDIA/GONOCOCCUS PORTILLO (SW AB/URINE/PAPon 03-28-2021 Chlamydia trachomatis, PORTILLO Negative Normal Negative [facility] Comment on above: Performed By: #### C T/NGNA #### [facility] [address] [place] [address] Anabella Shalonda Neisseria gonorrhoeae, PORTILLO Negative Normal Negative [facility] Comment on above: Performed By: #### C T/NGNA #### [facility] [address] [place] [address] Anabella Shalonda CREATININE CLEARon CREA CLEARANCE 102.10 ml/min Normal 75.00-115.00 [facility] Comment on above: Performed By: #### A ST, URIC, LDH, ALT #### [facility] [address] [place] [address] Anabella Shalonda CREA, 24 HR UR 1070.82 mg/24 hr Normal 800.00-1, 800.0 0 [facility] Comment on above: Performed By: #### A ST, URIC, LDH, ALT #### [facility] [address] [place] [address] Anabella Shalonda Creatinine [Mass/Vol] 0.72 mg/dL Normal 0.52-1.04 [facility] Comment on above: Performed By: #### A ST, URIC, LDH, ALT #### [facility] [address] [place] [address] Anabella Shalonda URINE CREAT 19.83 mg/dL Critically low 20.00-300.00 [facility] Comment on above: Performed By: #### A ST, URIC, LDH, ALT #### [facility] [address] [place] [address] Anabella Shalonda LDHon 03-28-2021 LDH 488 U/L Critically high 122-222 [facility] Comment on above: Performed By: #### A ST, URIC, LDH, ALT #### [facility] [address] [place] [address] Anabella Shalonda LDH 517 U/L Critically high 122-222 [facility] Comment on above: Performed By: #### A ST, URIC, LDH, ALT #### [facility] [address] [id number] Anabella Shalonda PROTEIN 24HR URINEon 021 UR PROT <5.0 Normal <=12.0 [facility] Comment on above: Performed By: #### A ST, URIC, LDH, ALT #### [facility] [address] [place] [address] Anabella Shalonda UR TOT VOL 5400 ml/24 HR Normal [facility] Comment on above: Performed By: #### A ST, URIC, LDH, ALT #### [facility] [address] [place] [address] Anabella Shalonda SGOTon 03-28-2021 AST [Catalytic activity/Vol] 83 U/L Critically high [facility] Comment on above: Performed By: #### A ST, URIC, LDH, ALT #### [facility] [address] [place] [address] Anabella Shalonda AST [Catalytic activity/Vol] 85 U/L Critically high [facility] Comment on above: Performed By: #### A ST, URIC, LDH, ALT #### [facility] [address] [place] [address] Anabella Shalonda SGPTon 03-28-2021 ALT [Catalytic activity/Vol] 82 U/L Critically high [facility] Comment on above: Performed By: #### A ST, URIC, LDH, ALT #### [facility] [address] [place] [address] Anabella Shalonda ALT [Catalytic activity/Vol] 85 U/L Critically high [facility] Comment on above: Performed By: #### A ST, URIC, LDH, ALT #### [facility] [address] [place] [address] Anabella Shalonda TSHon 03-28-2021 TSH 2.728 uIU/mL Normal 0.470-4.680 [facility] Comment on above: Performed By: #### A ST, URIC, LDH, ALT #### [facility] [address] [address] Anabella Liz TSH RANGE SEE BELOW Normal [facility] Comment on above: Result Comment: <0.3 4 UIU/ml HYPERTHYROID 0.34-5.60 UIU/ml EUTHYROID >5.60 UIU/ml HYPOTHYROID Performed By: #### A ST, URIC, LDH, ALT #### [facility] [address] [address] Anabellacarissa Liz URIC ACID SERUMon 03-28-2021 Urate [Mass/Vol] 6.9 mg/dL Critically high 2.5-6.2 [facility] Comment on above: Performed By: #### A ST, URIC, LDH, ALT #### [facility] [address] [address] Anabella Shalonda Urate [Mass/Vol] 7.0 mg/dL Critically high 2.5-6.2 [facility] Comment on above: Performed By: #### A ST, URIC, LDH, ALT #### [facility] [address] [id number] Anabellacarissa Liz US PREG BIOPHY W NON STRESSo n 03-28-2021 US PREG BIOPHY W NON STRESS EXAMINATION: US PREG BIOPHY W NON STRESS HISTORY: Finding of increased blood pressure COMPARISON: No relevant comparison available. TECHNIQUE: Ultrasound biophysical profile was performed. FINDINGS: BREATHING MOVEMENTS: 2.0 GROSS BODY MOVEMENTS: 2.0 TONE: 2.0 QUALITATIVE AMNIOTIC FLUID VOLUME: 2.0 PRESENTATION: Cephalic HEART RATE: 137.8 bpm bpm. AMNIOTIC FLUID VOLUME: 10.2 cm GESTATIONAL AGE: 37 weeks 2 days CONCLUSION: Total biophysical profile score 8.0. Electronically authenticated by: ANDREW STERLING Date: 2021-03-28 16:40 Normal [facility] US PREG GROWTHon 03-28-2021 US PREG GROWTH EXAMINATION: US PREG GROWTH HISTORY: Finding of increased blood pressure COMPARISON: No relevant comparison available. FINDINGS: Heart Rate: 137.8 bpm Number: 1.0 Position: Cephalic Amniotic Fluid Volume: 10.2 cm Maximum Vertical Pocket: 4.6 cm BIOMETRY: BPD: 8.5 cm cm; 34 weeks 3 days HC: 32.4 cmcm; 36 weeks 5 days AC: 32.4 cm cm; 36 weeks 2 days FL: 7.0 cm cm; 35 weeks 5 days EFW: 2826.0 grams; 25th percentile FL/AC: 21.5 FL/BPD: 81.6 HC/AC: 1.0 GESTATIONAL AGE: Age by EDC: 37 weeks 2 days ELISEO by EDC: 04/16/2021 Age by US: 35 weeks, 6 days ELISEO by US: 04/26/2021 IMPRESSION: 1. Single live intrauterine with growth detailed above. Electronically authenticated by: ANDREW STERLING Date: 2021-03-28 16:39 Normal [facility] GROUP B STREP CULTUREon 02-28 S. agalactiae Ag Ql (Unsp spec) Culture Observations: NEGATIVE FOR GROUP B STREPTOCOCCUS. Normal [facility] Comment on above: Performed By: #### A ST, URIC, LDH, ALT #### [facility] [address] [place] [address] Anabella Shalonda US PREG GROWTHon 02-22-2021 US PREG GROWTH EXAMINATION: US PREG GROWTH HISTORY: Poor growth affecting management COMPARISON: Ultrasound dating 10/18/2020 FINDINGS: Heart Rate: 131.4 bpm Number: 1.0 Position: CEPHALIC Amniotic Fluid Volume: 15.2 cm Maximum Vertical Pocket: 4.5 cm BIOMETRY: BPD: 7.8 cm cm; 31 weeks 1 days HC: 28.8 cmcm; 31 weeks 5 days AC: 27.7 cm cm; 31 weeks 5 days FL: 6.3 cm cm; 32 weeks 3 days EFW: 1860.2 grams; 28th percentile FL/AC: 22.6 FL/BPD: 80.7 HC/AC: 1.0 GESTATIONAL AGE: Age by EDC: 32 weeks 2 days ELISEO by EDC: 04/16/2021 Age by US: 31 weeks, 5 days ELISEO by US: 04/20/2021 IMPRESSION: 1. Single live intrauterine with growth detailed above. Electronically authenticated by: ANDREW STERLING Date: 2021-02-22 07:58 Normal [facility] PAP ACOG PANEL 3: 21 to 29on 11-22-2020 . . Normal [facility] Comment on above: Result Comment: Perf ormed at: WB Performed By: #### A ST, URIC, LDH, ALT #### [facility] [address] [place] [address] Anabella Liz Age Gdln ACOG Testing 19- Normal [facility] Comment on above: Performed By: #### A ST, URIC, LDH, ALT #### [facility] [address] [place] [address] Shalonda Chlamydia, Nuc. Acid Amp Negative Normal Negative [facility] Comment on above: Result Comment: Perf ormed at: =G Performed By: #### A ST, URIC, LDH, ALT #### [facility] [address] [place] [address] Anabella Liz DIAGNOSIS: Comment Normal [facility] Comment on above: Result Comment: NEGA TIVE FOR INTRAEPITHELIAL LESION OR MALIGNANCY. Performed at: WB Performed By: #### A ST, URIC, LDH, ALT #### [facility] [address] [place] [address] Shalonda Gonococcus, Nuc. Acid Amp Negative Normal Negative [facility] Comment on above: Result Comment: Perf ormed at: =G Performed By: #### A ST, URIC, LDH, ALT #### [facility] [address] [place] [address] Anabella Liz Methodology: Comment Normal [facility] Comment on above: Result Comment: This liquid based ThinPrep(R) pap test was screened with the use of an image guided system. Performed at: WB Performed By: #### A ST, URIC, LDH, ALT #### [facility] [address] [place] [address] Note: Comment Normal [facility] Comment on above: Result Comment: The Pap smear is a screening test designed to aid in the detection of premalignant and malignant conditions of the uterine cervix. It is not a diagnostic procedure and should not be used as the sole means of detecting cervical cancer. Both false-positive and false-negative reports do occur. . Performed at: WB Performed By: #### A ST, URIC, LDH, ALT #### [facility] [address] [id number] Anabella Shalonda Performed by: Comment Normal [facility] Comment on above: Result Comment: Halima Alonso, Drill Setup Operator (ASCP) Performed at: WB Performed By: #### A ST, URIC, LDH, ALT #### [facility] [address] [place] [address] Anabella Shalonda Reflex Criteria: Comment Normal [facility] Comment on above: Result Comment: The HPV DNA reflex criteria were not met with this specimen result therefore, no HPV testing was performed. . Performed at: WB Performed By: #### A ST, URIC, LDH, ALT #### [facility] [address] [place] [address] Anabella Shalonda Specimen adequacy: Comment Normal [facility] Comment on above: Result Comment: Sati sfactory for evaluation. Endocervical and/or squamous metaplastic cells (endocervical component) are present. Performed at: WB Performed By: #### A ST, URIC, LDH, ALT #### [facility] [address] [place] [address] Anabella Shalonda BUNon 11-02-2020 Urea nitrogen [Mass/Vol] 8.0 mg/dL Normal 7.0-17.0 [facility] Comment on above: Performed By: #### A ST, URIC, LDH, ALT #### [facility] [address] [place] [address] Anabella Shalonda CBC AUTO DIFFon 11-02-2020 BASO # 0.1 103/ul Normal 0.0-0.1 [facility] Comment on above: Performed By: #### A ST, URIC, LDH, ALT #### [facility] [address] [place] [address] Anabella Shalonda Basophils/100 WBC (Bld) 0.4 % Normal 0.2-2.0 [facility] Comment on above: Performed By: #### A ST, URIC, LDH, ALT #### [facility] [address] [place] [address] Anabella Shalonda EO # 0.1 103/ul Normal 0.0-0.7 [facility] Comment on above: Performed By: #### A ST, URIC, LDH, ALT #### [facility] [address] [place] [address] Anabellacarissa Pierceen Eosinophils/100 WBC (Bld) 1.1 % Normal 0.9-7.0 [facility] Comment on above: Performed By: #### A ST, URIC, LDH, ALT #### [facility] [address] [place] [address] Anabella Shalonda Erythrocyte distribution width (RBC) [Ratio] 13.7 % Normal 11.0-15.0 [facility] Comment on above: Performed By: #### A ST, URIC, LDH, ALT #### [facility] [address] [place] [address] Anabellacarissa Pierceen Hematocrit (Bld) [Volume fraction] 36.3 % Normal 36.0-48.0 [facility] Comment on above: Performed By: #### A ST, URIC, LDH, ALT #### [facility] [address] [place] [address] Anabella Shalonda Hemoglobin (Bld) [Mass/Vol] 11.7 g/dL Critically low 12.0-16.0 [facility] Comment on above: Performed By: #### A ST, URIC, LDH, ALT #### [facility] [address] [place] [address] Anabella Shalonda IG # 0.07 10e3/ul Critically high 0.00-0.03 [facility] Comment on above: Performed By: #### A ST, URIC, LDH, ALT #### [facility] [address] [place] [address] Anabella Shalonda IG % 0.5 % Normal 0.0-0.5 [facility] Comment on above: Performed By: #### A ST, URIC, LDH, ALT #### [facility] [address] [place] [address] Anabella Shalonda LYMPH # 2.0 103/ul Normal 1.2-3.8 [facility] Comment on above: Performed By: #### A ST, URIC, LDH, ALT #### [facility] [address] [id number] Anabella Shalonda Lymphocytes/100 WBC (Bld) 15.6 % Critically low 20.5-60.0 [facility] Comment on above: Performed By: #### A ST, URIC, LDH, ALT #### [facility] [address] [address] Anabella Shalonda MANUAL DIFF REQ NO Normal [facility] Comment on above: Performed By: #### A ST, URIC, LDH, ALT #### [facility] [address] [place] [address] Anabella Shalonda MCH (RBC) [Entitic mass] 30.5 pg Normal 26.7-34.0 [facility] Comment on above: Performed By: #### A ST, URIC, LDH, ALT #### [facility] [address] [place] [address] Anabellacarissa Liz MCHC (RBC) [Mass/Vol] 32.2 g/dL Normal 29.9-35.2 [facility] Comment on above: Performed By: #### A ST, URIC, LDH, ALT #### [facility] [address] [place] [address] Anabellacarissa Liz MCV (RBC) [Entitic vol] 94.8 fL Normal 81.0-99.0 [facility] Comment on above: Performed By: #### A ST, URIC, LDH, ALT #### [facility] [address] [place] [address] Anabella Shalonda MONO # 0.5 103/ul Normal 0.3-0.8 [facility] Comment on above: Performed By: #### A ST, URIC, LDH, ALT #### [facility] [address] [place] [address] Anabella Shalonda Monocytes/100 WBC (Bld) 3.6 % Normal 1.7-12.0 [facility] Comment on above: Performed By: #### A ST, URIC, LDH, ALT #### [facility] [address] [place] [address] Anabella Shalonda NEUT # 10.1 103/ul Critically high 1.4-6.5 [facility] Comment on above: Performed By: #### A ST, URIC, LDH, ALT #### [facility] [address] [place] [address] Anabella Liz Neutrophils/100 WBC (Bld) 78.8 % Critically high 43.0-75.0 [facility] Comment on above: Performed By: #### A ST, URIC, LDH, ALT #### [facility] [address] [place] [address] Anabella Liz Platelet mean volume (Bld) [Entitic vol] 12.1 fL Normal 9.5-13.5 [facility] Comment on above: Performed By: #### A ST, URIC, LDH, ALT #### [facility] [address] [place] [address] Anabella Liz PLT 195 103/ul Normal 150-450 [facility] Comment on above: Performed By: #### A ST, URIC, LDH, ALT #### [facility] [address] [place] [address] Anabella Liz RBC 3.83 106/ul Critically low 4.20-5.40 [facility] Comment on above: Performed By: #### A ST, URIC, LDH, ALT #### [facility] [address] [place] [address] Anabella Liz WBC 12.9 103/ul Critically high 4.0-11.0 [facility] Comment on above: Performed By: #### A ST, URIC, LDH, ALT #### [facility] [address] [place] [address] Anabella Liz CREATININE CLEARon 1 CREA CLEARANCE 67.48 ml/min Critically low 75.00-115.00 [facility] Comment on above: Performed By: #### A ST, URIC, LDH, ALT #### [facility] [address] [place] [address] Anabella Liz CREA, 24 HR UR 461.40 mg/24 hr Critically low 800.00-1 ,800.0 0 [facility] Comment on above: Performed By: #### A ST, URIC, LDH, ALT #### [facility] [address] [place] [address] Anabella Shalonda Creatinine [Mass/Vol] 0.53 mg/dL Normal 0.52-1.04 [facility] Comment on above: Performed By: #### A ST, URIC, LDH, ALT #### [facility] [address] [place] [address] Anabella Shalonda UR TOT VOL 3000 ml/24 HR Normal [facility] Comment on above: Performed By: #### A ST, URIC, LDH, ALT #### [facility] [address] [place] [address] Anabella Shalonda URINE CREAT 15.38 mg/dL Critically low 20.00-300.00 [facility] Comment on above: Performed By: #### A ST, URIC, LDH, ALT #### [facility] [address] [place] [address] Anabella Shalonda LDHon 11-02-2020 LDH 187 U/L Normal 122-222 [facility] Comment on above: Performed By: #### A ST, URIC, LDH, ALT #### [facility] [address] [place] [address] Anabella Shalonda PROTEIN 24HR URINEon 021 T PROT, 24 HR UR 12.0 mg/24 hr Critically low 42.0-225.0 [facility] Comment on above: Performed By: #### A ST, URIC, LDH, ALT #### [facility] [address] [place] [address] Anabella Shalonda UR PROT 0.4 mg/dL Normal <=12.0 [facility] Comment on above: Performed By: #### A ST, URIC, LDH, ALT #### [facility] [address] [place] [address] Anabella Shalonda UR TOT VOL 3000 ml/24 HR Normal [facility] Comment on above: Performed By: #### A ST, URIC, LDH, ALT #### [facility] [address] [place] [address] Anabella Shalonda SGOTon 11-02-2020 AST [Catalytic activity/Vol] 19 U/L Normal 14-36 [facility] Comment on above: Performed By: #### A ST, URIC, LDH, ALT #### [facility] [address] [place] [address] Anabella Liz SGPTon 11-02-2020 ALT [Catalytic activity/Vol] 19 U/L Normal 9-52 [facility] Comment on above: Performed By: #### A ST, URIC, LDH, ALT #### [facility] [address] [place] [address] Anabella Liz TSHon 11-02-2020 TSH 1.341 uIU/mL Normal 0.470-4.680 [facility] Comment on above: Performed By: #### A ST, URIC, LDH, ALT #### [facility] [address] [place] [address] Anabella Liz TSH RANGE SEE BELOW Normal [facility] Comment on above: Result Comment: <0.3 4 UIU/ml HYPERTHYROID 0.34-5.60 UIU/ml EUTHYROID >5.60 UIU/ml HYPOTHYROID Performed By: #### A ST, URIC, LDH, ALT #### [facility] [address] [place] [address] Anabellacarissa Liz URIC ACID SERUMon 11-02-2020 Urate [Mass/Vol] 3.9 mg/dL Normal 2.5-6.2 [facility] Comment on above: Performed By: #### A ST, URIC, LDH, ALT #### [facility] [address] [place] [address] Anabella Liz CULTURE URINEon 10-22-2020 CULTURE URINE Culture Observations : No growth. Normal [facility] Comment on above: Performed By: #### A ST, URIC, LDH, ALT #### [facility] [address] [place] [address] Anabella Liz UA RANDOM W/MICROSCOPICon BACTERIA TRACE Abnormal NONE SEEN [facility] Comment on above: Performed By: #### A ST, URIC, LDH, ALT #### [facility] [address] [place] [address] Anabella Shalonda Bilirubin Ql (U) Negative Normal NEGATIVE [facility] Comment on above: Performed By: #### A ST, URIC, LDH, ALT #### [facility] [address] [address] Anabella Shalonda CAST NONE SEEN Normal NONE SEEN [facility] Comment on above: Performed By: #### A ST, URIC, LDH, ALT #### [facility] [address] [address] Anabella Shalonda Clarity (U) CLEAR Normal CLEAR [facility] Comment on above: Performed By: #### A ST, URIC, LDH, ALT #### [facility] [address] [address] Anabella Shalonda Color (U) LT. YELLOW Normal YELLOW [facility] Comment on above: Performed By: #### A ST, URIC, LDH, ALT #### [facility] [address] [address] Anabella Shalonda Crystals LM Nom (Urine sed) NONE SEEN Normal NONE SEEN [facility] Comment on above: Performed By: #### A ST, URIC, LDH, ALT #### [facility] [address] [place] [address] Anabella Shalonda Epithelial cells LM Ql (Urine sed) FEW Abnormal NONE SEEN /RARE [facility] Comment on above: Performed By: #### A ST, URIC, LDH, ALT #### [facility] [address] [address] Anabella Shalonda Glucose Ql (U) Negative Normal NEGATIVE [facility] Comment on above: Performed By: #### A ST, URIC, LDH, ALT #### [facility] [address] [address] Anabella Shalonda Hemoglobin Ql (U) Negative Normal NEGATIVE [facility] Comment on above: Performed By: #### A ST, URIC, LDH, ALT #### [facility] [address] [address] Anabella Shalonda Ketones Ql (U) Negative Normal NEGATIVE [facility] Comment on above: Performed By: #### A ST, URIC, LDH, ALT #### [facility] [address] [place] [address] Anabella Shalonda LEUKOCYTES SMALL Abnormal NEGATIVE [facility] Comment on above: Performed By: #### A ST, URIC, LDH, ALT #### [facility] [address] [place] [address] Anabella Shalonda MUCOUS NONE SEEN Normal NONE SEEN [facility] Comment on above: Performed By: #### A ST, URIC, LDH, ALT #### [facility] [address] [address] Anabella Shalonda Nitrite Ql (U) Negative Normal NEGATIVE [facility] Comment on above: Performed By: #### A ST, URIC, LDH, ALT #### [facility] [address] [place] [address] Anabella Shalonda pH (U) 6.0 [pH] Normal 5-9 [facility] Comment on above: Performed By: #### A ST, URIC, LDH, ALT #### [facility] [address] [place] [address] Anabella Shalonda RBC 0-2 Normal 0-2 [facility] Comment on above: Performed By: #### A ST, URIC, LDH, ALT #### [facility] [address] [place] [address] Anabella Shalonda SPEC GRAVITY <=1.005 Abnormal 1.005-<=1.025 [facility] Comment on above: Performed By: #### A ST, URIC, LDH, ALT #### [facility] [address] [place] [address] Anabella Shalonda UA PROTEIN Negative Normal NEGATIVE/ TRACE [facility] Comment on above: Performed By: #### A ST, URIC, LDH, ALT #### [facility] [address] [place] [address] Anabella Shalonda Urobilinogen Qn (U) 0.2 {Rebecca'U}/dL Normal 0.2 - 1. 0 [facility] Comment on above: Performed By: #### A ST, URIC, LDH, ALT #### [facility] [address] [place] [address] Anabella Shalonda WBC 5-10 Abnormal NONE SEEN [facility] Comment on above: Performed By: #### A ST, URIC, LDH, ALT #### [facility] [address] [id number] Anabella Liz US PREG DATING >14WEEKSon US PREG DATING >14WEEKS EXAMINATION: US PREG DATING >14WEEKS HISTORY: Secondary physiologic amenorrhea COMPARISON: No relevant comparison available. FINDINGS: GESTATIONAL SAC: Present and normal appearing. POLE: Present and normal appearing. YOLK SAC: Not seen CARDIAC: 150 bpm UTERUS: Normal size and appearance. OVARIES: Right: Normal. Left: Not seen. CERVIX: 3.5 cm in length and closed. CUL-DE-SAC: Normal. OTHER: None. AGE BY LMP: 14 weeks, 3 days ELISEO BY LMP: 04/15/2021 AGE BY US CRL: 14 weeks, 3 days ELISEO BY US CRL: 04/15/2021 IMPRESSION: 1. Single live intrauterine . Electronically authenticated by: ANDREW STERLING Date: 2020-10-18 10:41 Normal [facility] CNOVon 02-23-2017 CNOV Office Visit (OBGYCC) ----LILIBETH VILLAFUERTE ([id number]) 1995 [facility] Time Provider Department02/23/17 10:50 AM MATTI VENEGAS OBGY During your visit today, we recorded the following information about you: Blood pressure Weight Height 126/76 45.8 kg 1.651 Larisa Venegas MD 02/23/2017 12:04 PM SignedSUBJECTIVE: Lilibeth Villafuerte is a 21 year old female Patient presents with:Consult: chronic BV and herpes outbreaks She gets them monthlyNothing nowAffecting her lifeShe gets them monthlyTried daily Valtrex.CURRENT MEDICATIONS:No current outpatient prescriptions on file.No current facility-administered medications for this visit.Reviewed:No past surgical history on file.No past medical history on file.Social History Marital status: Single Spouse name: Years of education: Number of children:Social History Main TopicsReview of patient's allergies indicates not on file.REVIEW OF SYSTEMS:GENERAL: No weight loss, malaise or feversHEENT: Negative for frequent or significant headaches, No changes in hearing orvision, no nose bleeds or other nasal problemsNECK: Negative for lumps, goiter, pain and significant neck swellingRESPIRATORY: Negative for cough, hemoptysis, wheezing, COPD, dyspnea orshortness of breathCARDIOVASCULAR: Negative for chest pain, leg swelling, hypertension, CHF orpalpitationsGI: No nausea, vomiting, or diarrheaPHYSICAL EXAMINATION:BP 126/76 Ht 5' 5ANDquot; (1.65m) Wt 101 lb (45.8kg) BMI 16.81 kg/(m2).GENERAL APPEARANCE: pleasant, well developed, well nourished, white female inno apparent distressNECK: Full range of motion, no adenopathy, thyroid normal, no goiter andlymphnodes normal, no lymphadenopathyASSESS MENT/PLAN:1. Bacterial vaginosis - ICD9: 616.10, 041.9, ICD10: N76.0, B96.89 (primarydiagnosis)Cou nseled in lengthDeclines referral to Security Incident Response Engineer ID for nowWants to come back when she thinks that she has an active infection to confirmthe Dx.2. Genital herpes simplex, unspecified site - ICD9: 054.10, ICD10: A60.00As above.Spent 30 minutes with pt face to face. 20 minutes of that time was spent inc[facility]swilli[facility]on [facility] hospitalMatti Venegas MDReferring Provider: RADHA MEMBRENO [[id number]]Allergies As of Date: 02/23/2017(Not on File)Date Reviewed: 02/23/2017Reviewed by: Gail Benavidez LPN - Fully AssessedReason for Visit: Consult [502] Cmt: chronic BV and herpes outbreaksPrimary Visit Diagnosis:Bacterial vaginosis [N76.0, B96.89] Other Visit Diagnosis:Genital herpes simplex, unspecified site [A60.00]Problem List As Of Date: 02/23/2017(None)Encou nter Number: [id number] Status:Closed by MATTI VENEGAS MD on 02/23/17 [facility] 02-23-2017 [facility] ----LILIBETH VILLAFUERTE ([id number]) 1995 [facility] Time Provider Department02/23/17 MATTI VENEGAS [facility] During your visit today, we recorded the following information about you:Ashwini Acuña RN 02/23/2017 3:03 PM SignedPt states she was here for an appt today and was told to stop all medications.Pt started spotting right after she left appt. Says she is due for next deposhot and has an appt on Sunday.Pt says in the past her other doctor has given her estradiol to stop bleeding.Is wondering if Dr. Venegas advises this and if so can a Rx be sent to [facility]??Matti Venegas MD 02/26/2017 8:30 AM SignedShe can get the depo today.Tanisha Ramos RN 02/26/2017 9:37 AM SignedLeft message on voicemail to return the call to the office for message below.Ashwini Acuña RN 02/26/2017 10:09 AM SignedPt returned call. Notified of below. Pt states she has an appt with herprimary TOOL AND DIE MAKER/DESIGNER doctor Sunday and will get her shot then.Allergies As of Date: 02/23/2017(Not on File)Date Reviewed: 02/23/2017Reviewed by: Gail Benavidez LPN - Fully AssessedReason for Visit: Question [1597]Problem List As Of Date: 02/23/2017(None)[place] nter Number: [id number] Status:Closed by MATTI VENEGAS MD on 7/31/17 [facility] PROGRESSon 02-23-2017 PROGRESS HNO ID: [id number]: Matti Emmie Radhaervice: (none)Author Type: PhysicianType: Progress NotesFiled: 02/23/2017 12:04 PMNote Text:SUBJECTIVE: Lilibeth Villafuerte is a 21 year old female Patient presents with:Consult: chronic BV and herpes outbreaks She gets them monthlyNothing nowAffecting her lifeShe gets them monthlyTried daily Valtrex.CURRENT MEDICATIONS:No current outpatient prescriptions on file.No current facility-administered medications for this visit.Reviewed:No past surgical history on file.No past medical history on file.Social History Marital status: Single Spouse name: Years of education: Number of children:Social History Main TopicsReview of patient's allergies indicates not on file.REVIEW OF SYSTEMS:GENERAL: No weight loss, malaise or feversHEENT: Negative for frequent or significant headaches, No changes inhearing or vision, no nose bleeds or other nasal problemsNECK: Negative for lumps, goiter, pain and significant neck swellingRESPIRATORY: Negative for cough, hemoptysis, wheezing, COPD, dyspnea orshortness of breathCARDIOVASCULAR: Negative for chest pain, leg swelling, hypertension, CHFor palpitationsGI: No nausea, vomiting, or diarrheaPHYSICAL EXAMINATION:BP 126/76 Ht 5' 5 (1.65m) Wt 101 lb (45.8kg) BMI 16.81 kg/(m2).GENERAL APPEARANCE: pleasant, well developed, well nourished, white femalein no apparent distressNECK: Full range of motion, no adenopathy, thyroid normal, no goiter andlymphnodes normal, no lymphadenopathyASSESS MENT/PLAN:1. Bacterial vaginosis - ICD9: 616.10, 041.9, ICD10: N76.0, B96.89(primary diagnosis)Counseled in lengthDeclines referral to Security Incident Response Engineer ID for nowWants to come back when she thinks that she has an active infection toconfirm the Dx.2. Genital herpes simplex, unspecified site - ICD9: 054.10, ICD10: A60.00As above.Spent 30 minutes with pt face to face. 20 minutes of that time was spentin counselingMatti Venegas MD [facility] Vital Signs Date Time Vital Sign Value Performing Clinician Rupert pascual 09-05-2023 16:27-0500 Body weight 65.5 kg Jane Gricelda DO Work Phone: [facility] 09-05-2023 16:27-0500 Diastolic blood pressure 60 mm[Hg] Jane Gricelda DO Work Phone: [facility] 09-05-2023 16:27-0500 Systolic blood pressure 102 mm[Hg] Jane Gricelda DO Work Phone: [facility] Healthcare Encounters Encounter Date Encounter Type Care Provider Facility Start: 10-04-2023 End: 10-04-2023 ambulatory JANE GRICELDA Not Available Start: 09-19-2023 End: 09-19-2023 ambulatory JANE GRICELDA Not Available Start: 09-05-2023 End: 09-05-2023 ambulatory JANE GRICELDA Not Available Start: 09-05-2023 End: 09-05-2023 flow sheet Jane Gricelda DO Work Phone: [facility] BCP OB Comment on above: Third trimester preg ankur; Genital 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 Start: 08-22-2023 End: 08-22-2023 ambulatory JACOBO VAN Not Available Start: 08-09-2023 End: 08-10-2023 ambulatory JANE MADISON [facility] Start: 07-25-2023 End: 07-25-2023 ambulatory JANE MADISON Not Available Start: 06-27-2023 End: 06-27-2023 ambulatory JACOBO VAN Not Available Start: 04-05-2021 End: 04-07-2021 Evaluation and management of inpatient DR JANE MADISON Facility:[facility] Start: 04-01-2021 End: 04-01-[address] JANE MADISON Facility:[facility] Start: 03-31-2021 Evaluation and management of inpatient RADHA MEMBRENO Facility:[facility] Start: 03-28-2021 End: 03-28-[address] VINCENT MIN Facility:[facility] Start: 03-28-2021 End: 03-29-2021 ambulatory RADHA MEMBRENO Facility:[facility] Start: 03-25-2021 End: 03-25-2021 ambulatory RADHA TEMI Facility:[facility] Start: 02-21-2021 End: 02-22-[address] ANDREW STERLING Facility:[facility] Start: 11-18-2020 End: 11-18-2020 ambulatory RADHA MEMBRENO Facility:[facility] Start: 11-02-2020 End: 11-03-2020 ambulatory RADHA MEMBRENO Facility:[facility] Start: 10-22-2020 End: 10-22-2020 ambulatory RADHA TEMI Facility:[facility] Start: 10-18-2020 End: 10-19-[address] ANDREW STERLING Facility:[facility] Start: 02-23-2017 End: 02-23-2017 Ambulatory MATTI VENEGAS [facility] Procedures Date Procedure Procedure Detail Performing Clinician Start: 09-05-2023 Urnls dip stick/tabl et rgnt non-auto w/o micrscp Jane Madison DO Work Phone: Start: 04-05-2021 Delivery of Products of Conception, External Approach DR ANDREW STERLING Plan of Treatment Date Care Activity Detail Author Start: 09-19-2023 End: 09-19-2023 Patient encounter procedure 09/19/2023 3:30 PM EST Routine [facility] [address] [place] [address] Jane Madison, DO [address] [place] [address] [facility] Start: 03-30-2023 Influenza vaccination Influenza Vacc ine (#1) [facility] Payers Date Payer Category Payer Medicaid ANTHEM BCBS [facility] [employer] BCBS MEDICA[place] [id number] 2022-Present [address] [place] [address] [id number] 2021 Managed Care HMO (unspecified) [employer] A[employer] [id number] 2021-Present [address] [place] [address] HMO [id number] 2021 Private Health Insurance [id number] 1993 Unknown [id number] 2.16.840.1.170973.3.579.2.5 93 1993 Unknown [id number] 2.16.840.1.013904.3.579.2.5 93 1993 Unknown [id number] 2.16.840.1.494863.3.579.2.5 93 1993 Unknown [id number] 2.16.840.1.503095.3.579.2.5 93 1993 Unknown [id number] 2.16.840.1.464165.3.579.2.5 93 1993 Unknown [id number] 2.16.840.1.562862.3.579.2.5 93 1993 Unknown [id number] 2.16.840.1.176183.3.579.2.5 93 1993 Unknown [id number] 2.16.840.1.657434.3.579.2.5 93 1993 Unknown [id number] 2.16.840.1.977182.3.579.2.5 93 1993 Unknown [id number] 2.16.840.1.994848.3.579.2.5 93 1993 Unknown [id number] 2.16.840.1.179300.3.579.2.5 93 1993 Unknown [id number] 2.16.840.1.433802.3.579.2.1 286 1993 Unknown [id number] 2.16.840.1.751116.3.579.2.1 259 1993 Unknown [id number] 2.16.840.1.960872.3.579.2.1 259 1993 Unknown [id number] 2.16.840.1.660528.3.579.2.1 259 1993 Unknown [id number] 2.16.840.1.141942.3.579.2.1 259 1993 Unknown [id number] 2.16.840.1.699928.3.579.2.1 259 1993 Unknown [id number] 2.16.840.1.551624.3.579.2.1 259 1959 Medicaid [id number] 1959 Unknown [id number] 1959 Unknown [id number] Social History Date Type Detail Facility Tobacco smoking stat [facility] Tobacco smoking consumption unknown [facility] Start: 02-20-2023 [facility] Start: 1995 Sex Assigned At Female [facility] Start: 04-25-2023 Gender identity Identifies as female gender (finding) [facility] Start: 04-25-2023 Sexual orientation Heterosexual (fin ding) [facility] History of Present illness Narrative 09-05-2023 ELEONORA Cano - 09/05/2023 3:50 PM EST Note Date & Type Note Facility 09-05-2023 History of Presen t illness Narrative Reason for Appointment: Patient ID: Lilibeth Villafuerte is a 27 y.o. female who presents for Routine Visit Patient presents today for Return OB appointment. Current Medications: has a current medication list which includes the following prescription(s): aspirin, omeprazole, mv-min-fe fum-fa-dha, and valacyclovir. Medical History: Active Ambulatory Problems Diagnosis Date Noted No Active Ambulatory Problems Resolved Ambulatory Problems Diagnosis Date Noted No Resolved Ambulatory Problems No Additional Past Medical History Family History Problem Relation Name Age of Onset Hydrocele Son Social History Tobacco Use Smoking status: Not on file Smokeless tobacco: Not on file Substance Use Topics Alcohol use: Not on file Drug use: Not on file History reviewed. No pertinent surgical history. No Known Allergies Review of Systems: Review of Systems Constitutional: Negative. HENT: Negative. Eyes: Negative. Respiratory: Negative. Cardiovascular: Negative. Gastrointestinal: Negative. Genitourinary: Negative. Musculoskeletal: Negative. Skin: Negative. Neurological: Negative. All other systems reviewed and are negative. Hematological: Negative. Endocrine: Negative. Allergic/Immunologic: Negative. Objective Physical Exam Constitutional: Appearance: Normal appearance. She is normal weight. HENT: Head: Normocephalic. Cardiovascular: Rate and Rhythm: Normal rate. Pulses: Normal pulses. Pulmonary: Effort: Pulmonary effort is normal. Breath sounds: Normal breath sounds. Abdominal: Palpations: Abdomen is soft. Musculoskeletal: General: Normal range of motion. Neurological: General: No focal deficit present. Mental Status: She is alert and oriented to person, place, and time. Psychiatric: Mood and Affect: Mood normal. Behavior: Behavior normal. Thought Content: Thought content normal. Judgment: Judgment normal. Vitals and nursing note reviewed. Vitals: There is no height or weight on file to calculate BMI. BP: 102/60 Patient's last menstrual period was 02/06/2023. Assessment/Plan Encounter Diagnoses Name Primary? Third trimester Genital 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 Patient presents today for a routine obstetrics appointment. Patient is currently 30w1d . Patient states she is doing well but has complaints of being tired due to current . Patient has verbalizes frequent movement. labor precautions was discussed/given and patient was instructed to perform kick counts three times a day. Follow Up: Patient is to return to office in 2 week for routine OB appointment. Documented by ELEONORA Cano on behalf of: Jane Madison DO documented in this encounter [facility] Evaluation note Note Date & Type Note Facility Evaluation note Diagnosis Third trimester state, incidental Genital 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 documented in this encounter [facility] Summary Purpose Family History No Family History Records FoundNo Family History Records FoundNo Family History Records FoundNo Family History Records Found Advance Directives No Advanced Directives Records FoundNo Advanced Directives Records FoundNo Advanced Directives Records FoundNo Advanced Directives Records Found Additional Source Comments INFORMATION SOURCE (unrecogn ized section and content) DATE CREATED AUTHOR 01/23/2018 [facility] DATE CREATED AUTHOR AUTHOR'S ORGANIZ ATION 04/16/2021 [facility] DATE CREATED AUTHOR AUTHOR'S ORGANIZ ATION 08/12/2023 [facility] DATE CREATED AUTHOR AUTHOR'S ORGANIZ ATION 10/05/2023 [facility] EPIC Reason for Visit (unrecogniz ed section and content) Reason Comments Routine Visit Care Teams (unrecognized sec tion and content) Topographical Field Assistant Relationship Specialty Start Date End Date Vincent Min MD [address] [place] [address] PCP - General Family Medicine 08/22/23 FOR RECORDS PERTAINING TO PATIENTS WHO ARE OR HAVE BEEN ENROLLED IN A CHEMICAL DEPENDENCY/SUBSTANCEABUSE PROGRAM, SOME INFORMATION MAY BE OMITTED. This clinical summary was aggregated from multiple sources. Caution should be exercised in using it in the provision of clinical care. This summary normalizes information from multiple sources, and as a consequence, information in this document may materially change the coding, format and clinical context of patient data. In addition, data may be omitted in some cases. CLINICAL DECISIONS SHOULD BE BASED ON THE PRIMARY CLINICAL RECORDS. [employer] provides no warranty or guarantee of the accuracy or completeness of information in this document.
== END 2023-10-09 17:00 | disposition home or self-care (01) ==
LOC: US 16:59
PROVIDERS: Visit Provider Obstetrics & Gynecology
DX: O26.843 Uterine size-date discrepancy, third trimester (principal); Z3A.35 35 weeks gestation of pregnancy
CPT/HCPCS: 76816

== ENCOUNTER 2023-10-18 20:35 | Outpatient (REF) | payer OTHER, MEDICAID, SELFPAY ==
--- OUTSIDE RECORDS SUMMARY | 2023-10-18 20:39 | XMS_ITS | CCD ---
Author Organization [facility] Care Team Providers Care Prepress Stripper Name Role Phone MATTI VENEGAS Unavailable Unavailable [...] MEMBRENO Attending Unavailable RADHA MEMBRENO Admitting Unavailable NADERER, DR VINCENT Juárez Primary Care Unavailable RADHA MEMBRENO Attending Unavailable RADHA MEMBRENO Admitting Unavailable RADHA MEMBRENO Consulting Unavailable MISC, DR MISHRA Primary Care Unavailable ZIEBVIOLETTA, DR ANDREW Lance Consulting Unavailable RADHA MEMBRENO Attending Unavailable RADHA MEMBRENO Admitting Unavailable MISC, DR MISHRA Primary Care Unavailable RADHA MEMBRENO Consulting Unavailable PAKO, DR VINCENT Juárez Primary Care Unavailable JULIANNE, DR DOLAN Admitting Unavailable KARASIEmil, DR DOLAN Consulting Unavailable JULIANNE, DR DOLAN Attending Unavailable ZIEBER, DR ANDREW Lance Consulting Unavailable GRICELDA, DR LARA Consulting Unavailable GRICELDA, DR LARA Attending Unavailable GRICELDA, DR LARA Admitting Unavailable MISC, DR MISHRA Primary Care Unavailable RADHA MEMBRENO Attending Unavailable RADHA MEMBRENO Admitting Unavailable NADERER, DR VINCENT Juárez Primary Care Unavailable GRICELDA, DR LARA Attending Unavailable GRICELDA, DR LARA Procedure Practitioner Unavailab eli MADISON, DR LARA Admitting Unavailable GRICELDA, DR LARA Consulting Unavailable MISC, DR MISHRA Primary Care Unavailable RADHA MEMBRENO Consulting Unavailable CANELO FAJARDO Consulting Unavailable RADHA MEMBRENO Attending Unavailable RADHA MEMBRENO Admitting Unavailable RADHA MEMBRENO Consulting Unavailable CHERIERENatalio, DR VINCENT Juárez Primary Care Unavailable RADHA MEMBRENO Attending Unavailable RADHA MEMBRENO Admitting Unavailable RADHA MEMBRENO Consulting Unavailable NADERER, DR VINCENT A Primary Care Unavailable JANE MADISON Referring Unavailable VINCENT MIN Primary Care Unavailable Vincent Min MD Primary Care Provider JANE MADISON Attending Unavailable JACOBO VAN Attending Unavailable JACOBO VAN Attending Unavailable JANE MADISON Attending Unavailable JANE MADISON Attending Unavailable JANE MADISON Attending Unavailable Allergies Allergy Classification Reported Allergen(s) Allergy Type Date of Onset Reaction(s) Facility (1 source) nabumetone Drug Allergy [facility] (1 source) oxyCODONE Drug Allergy [facility] Medications Current Medications Medication Drug Class(es) [...] applicable or unspecified; Translations: [MAT CARE OTH VA FTL GRTH 3RD TM UNS] Onset: 02-25-2021 [...] UA Negative Negative - 4(70) +++ mg/dL [facility] Blood, UA Negative Negative - 50 Kendell/mcL [facility] Clarity, UA Clear [facility] Color, UA Yellow [facility]car [facility] Glucose, UA Negative Negative - 1999(110) ++++ mg/dL [facility] Interpretation and review of laboratory results Normal [facility] re Ketones, UA Negative Negative - 160(16) ++++ mg/dL [facility] Leukocytes, UA Negative Negative - 500+++ Laureen/mcL [facility] Nitrite, UA Negative Negative - Positive [facility] pH, UA 6.0 5 - 9 [facility] Protein, UA Negative Negative - 1999(20) ++++ mg/dL [facility] Spec Grav, UA 1.010 1 - 1.03 [facility] Urobilinogen, UA 0.2 0.2 - 12 mg/dL [facility] CBC AND AUTO DIFFon 08-09-19 24 ABSOLUTE BASOPHIL 0.0 X10E9/L Normal 0.0-0.2 [facility] Comment on above: Performed By: #### 1 504-0, CBCA #### [facility] ([id number]) [address], [address] [place] [address] ABSOLUTE NEUTROPHIL 11.6 X10E9/L High 1.5-6.6 [facility] Comment on above: Performed By: #### 1 504-0, CBCA #### [facility] ([id number]) [address], [address] [place] [address] Basophils/100 WBC (Bld) 0.2 % Normal [facility] Comment on above: Performed By: #### 1 504-0, CBCA #### [facility] ([id number]) [address], [address] [place] [address] Eosinophils (Bld) [#/Vol] 0.2 10*3/uL Normal 0.0-0.4 [facility] Comment on above: Performed By: #### 1 504-0, CBCA #### [facility] ([id number]) [address], [address] [place] [address] Eosinophils/100 WBC (Bld) 1.1 % Normal [facility] Comment on above: Performed By: #### 1 504-0, CBCA #### [facility] ([id number]) [address], [address] [place] [address] Erythrocyte distribution width (RBC) [Ratio] 14.6 % Normal 11.5-15.0 [facility] Comment on above: Performed By: #### 1 504-0, CBCA #### [facility] ([id number]) [address], [address] [place] [address] Hematocrit (Bld) [Volume fraction] 37.0 % Normal 35-47 [facility] Comment on above: Performed By: #### 1 504-0, CBCA #### [facility] ([id number]) [address], [address] [place] [address] Hemoglobin (Bld) [Mass/Vol] 12.3 g/dL Normal 11.7-15.5 [facility] Comment on above: Performed By: #### 1 504-0, CBCA #### [facility] ([id number]) [address], [address] [place] [address] Lymphocytes (Bld) [#/Vol] 2.1 10*3/uL Normal 1.0-3.5 [facility] Comment on above: Performed By: #### 1 504-0, CBCA #### [facility] ([id number]) [address], [facility] [address] [place] [address] Lymphocytes/100 WBC (Bld) 14.5 % Normal [facility] Comment on above: Performed By: #### 1 504-0, CBCA #### [facility] ([id number]) [address], [address] [place] [address] MCH (RBC) [Entitic mass] 31.5 pg Normal 27-34 [facility] Comment on above: Performed By: #### 1 504-0, CBCA #### [facility] ([id number]) [address], [address] [place] [address] MCHC (RBC) [Mass/Vol] 33.1 g/dL Normal 32-36 [facility] Comment on above: Performed By: #### 1 504-0, CBCA #### [facility] ([id number]) [address], [address] [place] [address] MCV (RBC) [Entitic vol] 95 fL Normal 80-100 [facility] Comment on above: Performed By: #### 1 504-0, CBCA #### [facility] ([id number]) [address], [address] [place] [address] Monocytes (Bld) [#/Vol] 0.4 10*3/uL Normal 0-0.9 [facility] Comment on above: Performed By: #### 1 504-0, CBCA #### [facility] ([id number]) [address], [address] [place] [address] Monocytes/100 WBC (Bld) 2.7 % Normal [facility] Comment on above: Performed By: #### 1 504-0, CBCA #### [facility] ([id number]) [address], [address] [place] [address] Neutrophils/100 WBC (Bld) 81.5 % Normal [facility] Comment on above: Performed By: #### 1 504-0, CBCA #### [facility] ([id number]) [address], [address] [place] [address] Platelet mean volume (Bld) [Entitic vol] 10.6 fL Normal 7-12 [facility] Comment on above: Performed By: #### 1 504-0, CBCA #### [facility] ([id number]) [address], [address] [place] [address] Platelets (Bld) [#/Vol] 199 10*3/uL Normal 150-450 [facility] Comment on above: Performed By: #### 1 504-0, CBCA #### [facility] ([id number]) [address], [address] [place] [address] RBC COUNT 3.89 X10E12/L Normal 3.80-5.20 [facility] Comment on above: Performed By: #### 1 504-0, CBCA #### [facility] ([id number]) [address], [address] [place] [address] WBC (Bld) [#/Vol] 14.2 10*3/uL High 4.0-11.0 [facility] Comment on above: Performed By: #### 1 504-0, CBCA #### [facility] ([id number]) [address], [address] [place] [address] Glucose 1 Hr post 50 g gluco se PO [Mass/Vol]on 08-09-2023 GLU 1H POST 50G LOAD 106 mg/dL Normal 65-139 [facility] Comment on above: Performed By: #### 1 504-0, CBCA #### [facility] ([id number]) [address] [place] [address] CBC W MANUAL DIFFon 04-06-20 21 ATYPICAL LYMPH # Normal [facility] Comment on above: Performed By: #### A ST, URIC, LDH, ALT #### [facility] [address] [address] Anabella Shalonda ATYPICAL LYMPH % Normal [facility] Comment on above: Performed By: #### A ST, URIC, LDH, ALT #### [facility] [address] [address] Anabella Shalonda BAND # Normal 0.0-0.3 [facility] Comment on above: Performed By: #### A ST, URIC, LDH, ALT #### [facility] [address] [address] Anabella Shalonda BAND % Normal 0-5 [facility] Comment on above: Performed By: #### A ST, URIC, LDH, ALT #### [facility] [address] [address] Anabella Shalonda BASOM # 0.00 103/ul Normal 0.00-0.10 [facility] Comment on above: Performed By: #### A ST, URIC, LDH, ALT #### [facility] [address] [address] Anabella Shalonda BASOM % 0.0 % Critically low 0.2-2.0 [facility] Comment on above: Performed By: #### A ST, URIC, LDH, ALT #### [facility] [address] [address] Anabella Shalonda BLAST # Normal [facility] Comment on above: Performed By: #### A ST, URIC, LDH, ALT #### [facility] [address] [address] Anabella Shalonda BLAST % Normal [facility] Comment on above: Performed By: #### A ST, URIC, LDH, ALT #### [facility] [address] [address] Anabella Shalonda CORRECTED WBC Normal 4.0-11.0 [facility] Comment on above: Performed By: #### A ST, URIC, LDH, ALT #### [facility] [address] [address] Anabella Shalonda EOS # 0.15 103/ul Normal 0.00-0.70 [facility] Comment on above: Performed By: #### A ST, URIC, LDH, ALT #### [facility] [address] [place] [address] Anabella Shalonda EOS% 1.0 % Normal 0.9-7.0 [facility] Comment on above: Performed By: #### A ST, URIC, LDH, ALT #### [facility] [address] [place] [address] Anabella Shalonda HCT 32.4 % Critically low 36.0-48.0 [facility] Comment on above: Performed By: #### A ST, URIC, LDH, ALT #### [facility] [address] [place] [address] Anabella Shalonda HGB 10.5 g/dl Critically low 12.0-16.0 [facility] Comment on above: Performed By: #### A ST, URIC, LDH, ALT #### [facility] [address] [place] [address] Anabella Shalonda LYMPHM # 2.68 103/ul Normal 1.20-3.80 [facility] Comment on above: Performed By: #### A ST, URIC, LDH, ALT #### [facility] [address] [place] [address] Anabella Shalonda LYMPHM% 18.0 % Critically low 20.5-60.0 [facility] Comment on above: Performed By: #### A ST, URIC, LDH, ALT #### [facility] [address] [place] [address] Anabellacarissa Pierceen MCH 30.8 pg Normal 26.7-34.0 [facility] Comment on above: Performed By: #### A ST, URIC, LDH, ALT #### [facility] [address] [place] [address] Anabellacarissa Liz MCHC 32.4 g/dl Normal 29.9-35.2 [facility] Comment on above: Performed By: #### A ST, URIC, LDH, ALT #### [facility] [address] [place] [address] Anabella Shalonda MCV 95.0 fL Normal 81.0-99.0 [facility] Comment on above: Performed By: #### A ST, URIC, LDH, ALT #### [facility] [address] [place] [address] Anabella Shalonda METAMYELOCYTE # Normal [facility] Comment on above: Performed By: #### A ST, URIC, LDH, ALT #### [facility] [address] [place] [address] Anabella Shalonda METAMYELOCYTE % Normal [facility] Comment on above: Performed By: #### A ST, URIC, LDH, ALT #### [facility] [address] [place] [address] Anabella Shalonda MONOM# 0.30 103/ul Normal 0.30-0.80 [facility] Comment on above: Performed By: #### A ST, URIC, LDH, ALT #### [facility] [address] [place] [address] Anabella Shalonda MONOM% 2.0 % Normal 1.7-12.0 [facility] Comment on above: Performed By: #### A ST, URIC, LDH, ALT #### [facility] [address] [place] [address] Anabella Shalonda MPV 13.5 fL Normal 9.5-13.5 [facility] Comment on above: Performed By: #### A ST, URIC, LDH, ALT #### [facility] [address] [place] [address] Anabella Shalonda MYELOCYTE # Normal [facility] Comment on above: Performed By: #### A ST, URIC, LDH, ALT #### [facility] [address] [id number] Anabella Liz MYELOCYTE % Normal [facility] Comment on above: Performed By: #### A ST, URIC, LDH, ALT #### [facility] [address] [id number] Anabella Liz NRBC Normal [facility] Comment on above: Performed By: #### A ST, URIC, LDH, ALT #### [facility] [address] [address] Anabellacarissa Pierceen PLT 120 103/ul Critically low 150-450 [facility] Comment on above: Performed By: #### A ST, URIC, LDH, ALT #### [facility] [address] [address] Anabella Pierceen RBC 3.41 106/ul Critically low 4.20-5.40 [facility] Comment on above: Performed By: #### A ST, URIC, LDH, ALT #### [facility] [address] [address] Anabella Liz RDW 15.3 % Critically high 11.0-15.0 [facility] Comment on above: Performed By: #### A ST, URIC, LDH, ALT #### [facility] [address] [id number] Anabella Pierceen SEG # 11.77 103/ul Critically high 1.40-6.50 [facility] Comment on above: Performed By: #### A ST, URIC, LDH, ALT #### [facility] [address] [address] Anabella Shalonda SEG % 79.0 % Critically high 43.0-75.0 [facility] Comment on above: Performed By: #### A ST, URIC, LDH, ALT #### [facility] [address] [id number] Anabellacarissa Pierceen WBC 14.9 103/ul Critically high 4.0-11.0 [facility] Comment on above: Performed By: #### A ST, URIC, LDH, ALT #### [facility] [address] [place] [address] Anabella Liz CBC AUTO DIFFon 04-05-2021 BASO # 0.1 103/ul Normal 0.0-0.1 [facility] Comment on above: Performed By: #### A ST, URIC, LDH, ALT #### [facility] [address] [place] [address] Anabella Liz Basophils/100 WBC (Bld) 0.4 % Normal 0.2-2.0 [facility] Comment on above: Performed By: #### A ST, URIC, LDH, ALT #### [facility] [address] [place] [address] Anabellacarissa Liz EO # 0.1 103/ul Normal 0.0-0.7 [facility] Comment on above: Performed By: #### A ST, URIC, LDH, ALT #### [facility] [address] [place] [address] Anabella Liz Eosinophils/100 WBC (Bld) 0.7 % Critically low 0.9-7.0 [facility] Comment on above: Performed By: #### A ST, URIC, LDH, ALT #### [facility] [address] [place] [address] Anabella Liz Erythrocyte distribution width (RBC) [Ratio] 15.2 % Critically high 11.0-15.0 [facility] Comment on above: Performed By: #### A ST, URIC, LDH, ALT #### [facility] [address] [place] [address] Anabella Liz Hematocrit (Bld) [Volume fraction] 35.9 % Critically low 36.0-48.0 [facility] Comment on above: Performed By: #### A ST, URIC, LDH, ALT #### [facility] [address] [place] [address] Anabellacarissa Liz Hemoglobin (Bld) [Mass/Vol] 11.7 g/dL Critically low 12.0-16.0 [facility] Comment on above: Performed By: #### A ST, URIC, LDH, ALT #### [facility] [address] [address] Anabella Shalonda IG # 0.09 10e3/ul Critically high 0.00-0.03 [facility] Comment on above: Performed By: #### A ST, URIC, LDH, ALT #### [facility] [address] [address] Anabella Shalonda IG % 0.7 % Critically high 0.0-0.5 [facility] Comment on above: Performed By: #### A ST, URIC, LDH, ALT #### [facility] [address] [place] [address] Anabella Shalonda LYMPH # 1.9 103/ul Normal 1.2-3.8 [facility] Comment on above: Performed By: #### A ST, URIC, LDH, ALT #### [facility] [address] [place] [address] Anabella Shalonda Lymphocytes/100 WBC (Bld) 14.5 % Critically low 20.5-60.0 [facility] Comment on above: Performed By: #### A ST, URIC, LDH, ALT #### [facility] [address] [place] [address] Anabella Shalonda MANUAL DIFF REQ NO Normal [facility] Comment on above: Performed By: #### A ST, URIC, LDH, ALT #### [facility] [address] [place] [address] Anabellacarissa Liz MCH (RBC) [Entitic mass] 30.2 pg Normal 26.7-34.0 [facility] Comment on above: Performed By: #### A ST, URIC, LDH, ALT #### [facility] [address] [place] [address] Anabella Shalonda MCHC (RBC) [Mass/Vol] 32.6 g/dL Normal 29.9-35.2 [facility] Comment on above: Performed By: #### A ST, URIC, LDH, ALT #### [facility] [address] [place] [address] Anabella Shalonda MCV (RBC) [Entitic vol] 92.5 fL Normal 81.0-99.0 [facility] Comment on above: Performed By: #### A ST, URIC, LDH, ALT #### [facility] [address] [place] [address] Anabellacarissa Pierceen MONO # 0.7 103/ul Normal 0.3-0.8 [facility] Comment on above: Performed By: #### A ST, URIC, LDH, ALT #### [facility] [address] [place] [address] Anabellacarissa Pierceen Monocytes/100 WBC (Bld) 5.1 % Normal 1.7-12.0 [facility] Comment on above: Performed By: #### A ST, URIC, LDH, ALT #### [facility] [address] [place] [address] Anabella Shalonda NEUT # 10.4 103/ul Critically high 1.4-6.5 [facility] Comment on above: Performed By: #### A ST, URIC, LDH, ALT #### [facility] [address] [place] [address] Anabella Liz Neutrophils/100 WBC (Bld) 78.6 % Critically high 43.0-75.0 [facility] Comment on above: Performed By: #### A ST, URIC, LDH, ALT #### [facility] [address] [place] [address] Anabellacarissa Pierceen Platelet mean volume (Bld) [Entitic vol] 13.3 fL Normal 9.5-13.5 [facility] Comment on above: Performed By: #### A ST, URIC, LDH, ALT #### [facility] [address] [place] [address] Anabella Shalonda PLT 142 103/ul Critically low 150-450 [facility] Comment on above: Performed By: #### A ST, URIC, LDH, ALT #### [facility] [address] [place] [address] Anabella Shalonda RBC 3.88 106/ul Critically low 4.20-5.40 [facility] Comment on above: Performed By: #### A ST, URIC, LDH, ALT #### [facility] [address] [place] [address] Anabella Liz WBC 13.2 103/ul Critically high 4.0-11.0 [facility] Comment on above: Performed By: #### A ST, URIC, LDH, ALT #### [facility] [address] [place] [address] Anabella Liz DRUG SCREEN RAPID (URINE)on 04-05-2021 AMP Negative Normal NEGATIVE [facility] Comment on above: Performed By: #### D RUGRPD #### [facility] [address] [place] [address] Anabella Shalonda BAR Negative Normal NEGATIVE [facility] Comment on above: Performed By: #### D RUGRPD #### [facility] [address] [place] [address] Anabellacarissa Liz BUP Negative Normal NEGATIVE [facility] Comment on above: Performed By: #### D RUGRPD #### [facility] [address] [place] [address] Anabella Shalonda BZO Negative Normal NEGATIVE [facility] Comment on above: Performed By: #### D RUGRPD #### [facility] [address] [place] [address] Anabella Liz JP Negative Normal NEGATIVE [facility] Comment on above: Performed By: #### D RUGRPD #### [facility] [address] [place] [address] Anabella Liz CUT-OFFS SEE BELOW Normal [facility] Comment on above: Result Comment: AMP (Amphetamine): 500ng/mL, BAR (Barbituates): 200 ng/mL, BZO (Benzodiazepines): 150 ng/mL, BUP (Buprenorphine): 10 ng/mL, JP (Cocaine): 150 ng/mL, mAMP (Methamphetamine): 500 ng/mL, MTD (Methadone): 200 ng/mL, OPI (Opiates): 100 ng/mL, OXY (Oxycodone): 100 ng/mL, PCP (Phencyclidine): 25 ng/mL, PPX (Propoxyphene): 300 ng/mL, THC (Cannabinoids): 50 ng/mL, TCA (Trycyclic Antidepressants): 300 ng/mL Performed By: #### D RUGRPD #### [facility] [address] [address] Anabella Shalonda DRUG CUT HEADER DRUG CLASS TEST SYSTEM CUT-OFF CONCENTRATIONS ARE FOLLOWS: Normal [facility] Comment on above: Performed By: #### D RUGRPD #### [facility] [address] [address] Anabella Shalonda mAMP Negative Normal NEGATIVE [facility] Comment on above: Performed By: #### D RUGRPD #### [facility] [address] [address] Anabella Shalonda MTD Negative Normal NEGATIVE [facility] Comment on above: Performed By: #### D RUGRPD #### [facility] [address] [address] Anabella Shalonda OPI Negative Normal NEGATIVE [facility] Comment on above: Performed By: #### D RUGRPD #### [facility] [address] [place] [address] Anabella Shalonda OXY Negative Normal NEGATIVE [facility] Comment on above: Performed By: #### D RUGRPD #### [facility] [address] [address] Anabella Shalonda PCP Negative Normal NEGATIVE [facility] Comment on above: Performed By: #### D RUGRPD #### [facility] [address] [place] [address] Anabella Shalonda PPX Negative Normal NEGATIVE [facility] Comment on above: Performed By: #### D RUGRPD #### [facility] [address] [address] Anabella Shalonda TCA Negative Normal NEGATIVE [facility] Comment on above: Performed By: #### D RUGRPD #### [facility] [address] [address] Anabella Shalonda THC Negative Normal NEGATIVE [facility] Comment on above: Performed By: #### D RUGRPD #### [facility] [address] [address] Anabella Shalonda LDHon 04-05-2021 LDH 473 U/L Critically high 122-222 [facility] Comment on above: Performed By: #### A LT, LDH, AST, URIC #### [facility] [address] [place] [address] Anabella Liz SGOTon 04-05-2021 AST [Catalytic activity/Vol] 79 U/L Critically high 14-36 [facility] Comment on above: Performed By: #### A LT, LDH, AST, URIC #### [facility] [address] [place] [address] Anabella Liz SGPTon 04-05-2021 ALT [Catalytic activity/Vol] 81 U/L Critically high 9-52 [facility] Comment on above: Performed By: #### A LT, LDH, AST, URIC #### [facility] [address] [place] [address] Anabella Liz TYPE AND SCREENon 04-05-2021 TYPE AND SCREEN Antibody Screen NEGATIVE Blood Bank Notes completed by john ABO Rh Typing O Rh Positive Blood Bank Notes completed by john Normal [facility] Comment on above: Performed By: #### A ST, URIC, LDH, ALT #### [facility] [address] [place] [address] Anabella Liz URIC ACID SERUMon 04-05-2021 Urate [Mass/Vol] 7.7 mg/dL Critically high 2.5-6.2 [facility] Comment on above: Performed By: #### A LT, LDH, AST, URIC #### [facility] [address] [place] [address] Anabella Pierceen BUNon 03-28-2021 Urea nitrogen [Mass/Vol] 7.0 mg/dL Normal 7.0-17.0 [facility] Comment on above: Performed By: #### A ST, URIC, LDH, ALT #### [facility] [address] [place] [address] Anabella Liz CBC AUTO DIFFon 03-28-2021 BASO # 0.0 103/ul Normal 0.0-0.1 [facility] Comment on above: Performed By: #### A ST, URIC, LDH, ALT #### [facility] [address] [place] [address] Anabella Shalonda Basophils/100 WBC (Bld) 0.3 % Normal 0.2-2.0 [facility] Comment on above: Performed By: #### A ST, URIC, LDH, ALT #### [facility] [address] [address] Anabella Shalonda EO # 0.1 103/ul Normal 0.0-0.7 [facility] Comment on above: Performed By: #### A ST, URIC, LDH, ALT #### [facility] [address] [address] Anabella Shalonda Eosinophils/100 WBC (Bld) 1.1 % Normal 0.9-7.0 [facility] Comment on above: Performed By: #### A ST, URIC, LDH, ALT #### [facility] [address] [address] Anabella Shalonda Erythrocyte distribution width (RBC) [Ratio] 14.7 % Normal 11.0-15.0 [facility] Comment on above: Performed By: #### A ST, URIC, LDH, ALT #### [facility] [address] [address] Anabella Shalonda Hematocrit (Bld) [Volume fraction] 34.7 % Critically low 36.0-48.0 [facility] Comment on above: Performed By: #### A ST, URIC, LDH, ALT #### [facility] [address] [address] Anabella Shalonda Hemoglobin (Bld) [Mass/Vol] 11.4 g/dL Critically low 12.0-16.0 [facility] Comment on above: Performed By: #### A ST, URIC, LDH, ALT #### [facility] [address] [address] Anabella Shalonda IG # 0.09 10e3/ul Critically high 0.00-0.03 [facility] Comment on above: Performed By: #### A ST, URIC, LDH, ALT #### [facility] [address] [address] Anabella Shalonda IG % 0.7 % Critically high 0.0-0.5 [facility] Comment on above: Performed By: #### A ST, URIC, LDH, ALT #### [facility] [address] [place] [address] Anabella Shalonda LYMPH # 2.2 103/ul Normal 1.2-3.8 [facility] Comment on above: Performed By: #### A ST, URIC, LDH, ALT #### [facility] [address] [place] [address] Anabellacarissa Liz Lymphocytes/100 WBC (Bld) 16.5 % Critically low 20.5-60.0 [facility] Comment on above: Performed By: #### A ST, URIC, LDH, ALT #### [facility] [address] [place] [address] Anabellacarissa Liz MANUAL DIFF REQ NO Normal [facility] Comment on above: Performed By: #### A ST, URIC, LDH, ALT #### [facility] [address] [place] [address] Anabellacarissa Liz MCH (RBC) [Entitic mass] 30.4 pg Normal 26.7-34.0 [facility] Comment on above: Performed By: #### A ST, URIC, LDH, ALT #### [facility] [address] [place] [address] Anabella Liz MCHC (RBC) [Mass/Vol] 32.9 g/dL Normal 29.9-35.2 [facility] Comment on above: Performed By: #### A ST, URIC, LDH, ALT #### [facility] [address] [place] [address] Anabellacarissa Liz MCV (RBC) [Entitic vol] 92.5 fL Normal 81.0-99.0 [facility] Comment on above: Performed By: #### A ST, URIC, LDH, ALT #### [facility] [address] [place] [address] Anabellacarissa Pierceen MONO # 0.6 103/ul Normal 0.3-0.8 [facility] Comment on above: Performed By: #### A ST, URIC, LDH, ALT #### [facility] [address] [address] Anabella Shalonda Monocytes/100 WBC (Bld) 4.3 % Normal 1.7-12.0 [facility] Comment on above: Performed By: #### A ST, URIC, LDH, ALT #### [facility] [address] [place] [address] Anabellacarissa Pierceen NEUT # 10.2 103/ul Critically high 1.4-6.5 [facility] Comment on above: Performed By: #### A ST, URIC, LDH, ALT #### [facility] [address] [place] [address] Anabella Shalonda Neutrophils/100 WBC (Bld) 77.1 % Critically high 43.0-75.0 [facility] Comment on above: Performed By: #### A ST, URIC, LDH, ALT #### [facility] [address] [place] [address] Anabellacarissa Pierceen Platelet mean volume (Bld) [Entitic vol] 13.5 fL Normal 9.5-13.5 [facility] Comment on above: Performed By: #### A ST, URIC, LDH, ALT #### [facility] [address] [place], [place] [id number] Anabella Shalonda PLT 133 103/ul Critically low 150-450 [facility] Comment on above: Performed By: #### A ST, URIC, LDH, ALT #### [facility] [address] [place] [address] Anabella Shalonda RBC 3.75 106/ul Critically low 4.20-5.40 [facility] Comment on above: Performed By: #### A ST, URIC, LDH, ALT #### [facility] [address] [place] [address] Anabella Shalonda WBC 13.2 103/ul Critically high 4.0-11.0 [facility] Comment on above: Performed By: #### A ST, URIC, LDH, ALT #### [facility] [address] [place] [address] Anabellacarissa Pierceen BASO # 0.1 103/ul Normal 0.0-0.1 [facility] Comment on above: Performed By: #### A ST, URIC, LDH, ALT #### [facility] [address] [address] Anabella Shalonda Basophils/100 WBC (Bld) 0.4 % Normal 0.2-2.0 [facility] Comment on above: Performed By: #### A ST, URIC, LDH, ALT #### [facility] [address] [place] [address] Anabella Shalonda EO # 0.2 103/ul Normal 0.0-0.7 [facility] Comment on above: Performed By: #### A ST, URIC, LDH, ALT #### [facility] [address] [place] [address] Anabella Liz Eosinophils/100 WBC (Bld) 1.4 % Normal 0.9-7.0 [facility] Comment on above: Performed By: #### A ST, URIC, LDH, ALT #### [facility] [address] [place] [address] Anabella Liz Erythrocyte distribution width (RBC) [Ratio] 14.9 % Normal 11.0-15.0 [facility] Comment on above: Performed By: #### A ST, URIC, LDH, ALT #### [facility] [address] [place] [address] Anabella Liz Hematocrit (Bld) [Volume fraction] 36.5 % Normal 36.0-48.0 [facility] Comment on above: Performed By: #### A ST, URIC, LDH, ALT #### [facility] [address] [place] [address] Anabellacarissa Liz Hemoglobin (Bld) [Mass/Vol] 11.8 g/dL Critically low 12.0-16.0 [facility] Comment on above: Performed By: #### A ST, URIC, LDH, ALT #### [facility] [address] [place] [address] Anabella Shalonda IG # 0.11 10e3/ul Critically high 0.00-0.03 [facility] Comment on above: Performed By: #### A ST, URIC, LDH, ALT #### [facility] [address] [place], [place] [id number] Anabella Shalonda IG % 0.9 % Critically high 0.0-0.5 [facility] Comment on above: Performed By: #### A ST, URIC, LDH, ALT #### [facility] [address] [place] [address] Anabella Shalonda LYMPH # 2.0 103/ul Normal 1.2-3.8 [facility] Comment on above: Performed By: #### A ST, URIC, LDH, ALT #### [facility] [address] [place] [address] Anabella Shalonda Lymphocytes/100 WBC (Bld) 15.7 % Critically low 20.5-60.0 [facility] Comment on above: Performed By: #### A ST, URIC, LDH, ALT #### [facility] [address] [place] [address] Anabella Shalonda MANUAL DIFF REQ NO Normal [facility] Comment on above: Performed By: #### A ST, URIC, LDH, ALT #### [facility] [address] [place] [address] Anabella Shalonda MCH (RBC) [Entitic mass] 30.2 pg Normal 26.7-34.0 [facility] Comment on above: Performed By: #### A ST, URIC, LDH, ALT #### [facility] [address] [place] [address] Anabella Shalonda MCHC (RBC) [Mass/Vol] 32.3 g/dL Normal 29.9-35.2 [facility] Comment on above: Performed By: #### A ST, URIC, LDH, ALT #### [facility] [address] [place] [address] Anabella Shalonda MCV (RBC) [Entitic vol] 93.4 fL Normal 81.0-99.0 [facility] Comment on above: Performed By: #### A ST, URIC, LDH, ALT #### [facility] [address] [place] [address] Anabella Shalonda MONO # 0.7 103/ul Normal 0.3-0.8 [facility] Comment on above: Performed By: #### A ST, URIC, LDH, ALT #### [facility] [address] [address] Anabella Pierceen Monocytes/100 WBC (Bld) 5.2 % Normal 1.7-12.0 [facility] Comment on above: Performed By: #### A ST, URIC, LDH, ALT #### [facility] [address] [address] Anabella Shalonda NEUT # 9.5 103/ul Critically high 1.4-6.5 [facility] Comment on above: Performed By: #### A ST, URIC, LDH, ALT #### [facility] [address] [place] [address] Anabella Liz Neutrophils/100 WBC (Bld) 76.4 % Critically high 43.0-75.0 [facility] Comment on above: Performed By: #### A ST, URIC, LDH, ALT #### [facility] [address] [address] Anabella Liz Platelet mean volume (Bld) [Entitic vol] 13.8 fL Critically high 9.5-13.5 [facility] Comment on above: Performed By: #### A ST, URIC, LDH, ALT #### [facility] [address] [place] [address] Anabellacarissa Pierceen PLT 148 103/ul Critically low 150-450 [facility] Comment on above: Performed By: #### A ST, URIC, LDH, ALT #### [facility] [address] [place] [address] Anabella Shalonda RBC 3.91 106/ul Critically low 4.20-5.40 [facility] Comment on above: Performed By: #### A ST, URIC, LDH, ALT #### [facility] [address] [place] [address] Anabella Shalonda WBC 12.5 103/ul Critically high 4.0-11.0 [facility] Comment on above: Performed By: #### A ST, URIC, LDH, ALT #### [facility] [address] [place] [address] Anabella Shalonda CHLAMYDIA/GONOCOCCUS PORTILLO (SW AB/URINE/PAPon 03-28-2021 Chlamydia trachomatis, PORTILLO Negative Normal Negative [facility] Comment on above: Performed By: #### C T/NGNA #### [facility] [address] [address] Anabella Shalonda Neisseria gonorrhoeae, PORTILLO Negative Normal Negative [facility] Comment on above: Performed By: #### C T/NGNA #### [facility] [address] [address] Anabella Shalonda CREATININE CLEARon CREA CLEARANCE 102.10 ml/min Normal 75.00-115.00 [facility] Comment on above: Performed By: #### A ST, URIC, LDH, ALT #### [facility] [address] [place] [address] Anabella Shalonda CREA, 24 HR UR 1070.82 mg/24 hr Normal 800.00-1, 800.0 0 [facility] Comment on above: Performed By: #### A ST, URIC, LDH, ALT #### [facility] [address] [address] Anabella Shalonda Creatinine [Mass/Vol] 0.72 mg/dL Normal 0.52-1.04 [facility] Comment on above: Performed By: #### A ST, URIC, LDH, ALT #### [facility] [address] [address] Anabella Shalonda URINE CREAT 19.83 mg/dL Critically low 20.00-300.00 [facility] Comment on above: Performed By: #### A ST, URIC, LDH, ALT #### [facility] [address] [id number] Anabella Shalonda LDHon 03-28-2021 LDH 488 U/L Critically high 122-222 [facility] Comment on above: Performed By: #### A ST, URIC, LDH, ALT #### [facility] [address] [address] Anabella Shalonda LDH 517 U/L Critically high 122-222 [facility] Comment on above: Performed By: #### A ST, URIC, LDH, ALT #### [facility] [address] [place] [address] Anabella Liz PROTEIN 24HR URINEon 021 UR PROT <5.0 Normal <=12.0 [facility] Comment on above: Performed By: #### A ST, URIC, LDH, ALT #### [facility] [address] [place] [address] Anabellacarissa Liz UR TOT VOL 5400 ml/24 HR Normal [facility] Comment on above: Performed By: #### A ST, URIC, LDH, ALT #### [facility] [address] [place] [address] Anabella Shalonda SGOTon 03-28-2021 AST [Catalytic activity/Vol] 83 U/L Critically high [facility] Comment on above: Performed By: #### A ST, URIC, LDH, ALT #### [facility] [address] [place] [address] Anabellacarissa Liz AST [Catalytic activity/Vol] 85 U/L Critically high [facility] Comment on above: Performed By: #### A ST, URIC, LDH, ALT #### [facility] [address] [place] [address] [facility] ALT [Catalytic activity/Vol] 82 U/L Critically high [facility] Comment on above: Performed By: #### A ST, URIC, LDH, ALT #### [facility] [address] [place] [address] Anabellacarissa Liz ALT [Catalytic activity/Vol] 85 U/L Critically high [facility] Comment on above: Performed By: #### A ST, URIC, LDH, ALT #### [facility] [address] [place] [address] Anabella Shalonda TSHon 03-28-2021 TSH 2.728 uIU/mL Normal 0.470-4.680 [facility] Comment on above: Performed By: #### A ST, URIC, LDH, ALT #### [facility] [address] [id number] Anabella Liz TSH RANGE SEE BELOW Normal [facility] Comment on above: Result Comment: <0.3 4 UIU/ml HYPERTHYROID 0.34-5.60 UIU/ml EUTHYROID >5.60 UIU/ml HYPOTHYROID Performed By: #### A ST, URIC, LDH, ALT #### [facility] [address] [address] Anabella Liz URIC ACID SERUMon 03-28-2021 Urate [Mass/Vol] 6.9 mg/dL Critically high 2.5-6.2 [facility] Comment on above: Performed By: #### A ST, URIC, LDH, ALT #### [facility] [address] [address] Anabella Shalonda Urate [Mass/Vol] 7.0 mg/dL Critically high 2.5-6.2 [facility] Comment on above: Performed By: #### A ST, URIC, LDH, ALT #### [facility] [address] [id number] Anabella Liz US PREG BIOPHY W NON STRESSo [...] ANDREW STERLING Date: 2021-03-28 16:40 Normal [facility] US PREG GROWTHon 03-28-2021 US PREG GROWTH [...] by: ANDREW STERLING Date: 2021-03-28 16:39 Normal [facility] GROUP B STREP CULTUREon 02-28 S. agalactiae Ag Ql (Unsp spec) Culture Observations: NEGATIVE FOR GROUP B STREPTOCOCCUS. Normal [facility] Comment on above: Performed By: #### A ST, URIC, LDH, ALT #### [facility] [address] [place] [address] Anabella Liz US PREG GROWTHon 02-22-2021 US PREG GROWTH [...] ANDREW STERLING Date: 2021-02-22 07:58 Normal [facility] PAP ACOG PANEL 3: 21 to 29on 11-22-2020 . . Normal [facility] Comment on above: Result Comment: Perf ormed at: WB Performed By: #### A ST, URIC, LDH, ALT #### [facility] [address] [place] [address] Anabella Liz Age Gdln ACOG Testing 21-29 Normal [facility] Comment on above: Performed By: #### A ST, URIC, LDH, ALT #### [facility] [address] [place] [address] Anabella Liz Chlamydia, Nuc. Acid Amp Negative Normal Negative [facility] Comment on above: Result Comment: Perf ormed at: =G Performed By: #### A ST, URIC, LDH, ALT #### [facility] [address] [place] [address] Shalonda DIAGNOSIS: Comment Normal [facility] Comment on above: Result Comment: NEGA TIVE FOR INTRAEPITHELIAL LESION OR MALIGNANCY. Performed at: WB Performed By: #### A ST, URIC, LDH, ALT #### [facility] [address] [place] [address] Shalonda Gonococcus, Nuc. Acid Amp Negative Normal Negative [facility] Comment on above: Result Comment: Perf ormed at: =G Performed By: #### A ST, URIC, LDH, ALT #### [facility] [address] [place] [address] Shalonda Methodology: Comment Normal [facility] Comment on above: Result Comment: This liquid based ThinPrep(R) pap test was screened with the use of an image guided system. Performed at: WB Performed By: #### A ST, URIC, LDH, ALT #### [facility] [address] [place] [address] Anabella Shalonda Note: Comment Normal [facility] Comment on above: Result Comment: [...] #### A ST, URIC, LDH, ALT #### [facility] [address] [place] [address] Shalonda Performed by: Comment Normal [facility] Comment on above: Result Comment: Halima Alonso, Die Attacher (ASCP) Performed at: WB Performed By: #### A ST, URIC, LDH, ALT #### [facility] [address] [place] [address] Anabella Shalonda Reflex Criteria: Comment Normal [facility] Comment on above: Result Comment: The HPV DNA reflex criteria were not met with this specimen result therefore, no HPV testing was performed. . Performed at: WB Performed By: #### A ST, URIC, LDH, ALT #### [facility] [address] [place] [address] Anabella Shalonda Specimen adequacy: Comment Normal [facility] Comment on above: Result Comment: Sati sfactory for evaluation. Endocervical and/or squamous metaplastic cells (endocervical component) are present. Performed at: WB Performed By: #### A ST, URIC, LDH, ALT #### [facility] [address] [place] [address] Anabella Shalonda BUNon 11-02-2020 Urea nitrogen [Mass/Vol] 8.0 mg/dL Normal 7.0-17.0 [facility] Comment on above: Performed By: #### A ST, URIC, LDH, ALT #### [facility] [address] [place] [address] Anabella Shalonda CBC AUTO DIFFon 11-02-2020 BASO # 0.1 103/ul Normal 0.0-0.1 [facility] Comment on above: Performed By: #### A ST, URIC, LDH, ALT #### [facility] [address] [place] [address] Anabella Shalonda Basophils/100 WBC (Bld) 0.4 % Normal 0.2-2.0 [facility] Comment on above: Performed By: #### A ST, URIC, LDH, ALT #### [facility] [address] [place] [address] Anabella Shalonda EO # 0.1 103/ul Normal 0.0-0.7 [facility] Comment on above: Performed By: #### A ST, URIC, LDH, ALT #### [facility] [address] [place] [address] Anabella Shalonda Eosinophils/100 WBC (Bld) 1.1 % Normal 0.9-7.0 [facility] Comment on above: Performed By: #### A ST, URIC, LDH, ALT #### [facility] [address] [place] [address] Anabella Shalonda Erythrocyte distribution width (RBC) [Ratio] 13.7 % Normal 11.0-15.0 [facility] Comment on above: Performed By: #### A ST, URIC, LDH, ALT #### [facility] [address] [place] [address] Anabella Shalonda Hematocrit (Bld) [Volume fraction] 36.3 % Normal 36.0-48.0 [facility] Comment on above: Performed By: #### A ST, URIC, LDH, ALT #### [facility] [address] [place] [address] Anabella Shalonda Hemoglobin (Bld) [Mass/Vol] 11.7 g/dL Critically low 12.0-16.0 [facility] Comment on above: Performed By: #### A ST, URIC, LDH, ALT #### [facility] [address] [place] [address] Anabella Shalonda IG # 0.07 10e3/ul Critically high 0.00-0.03 [facility] Comment on above: Performed By: #### A ST, URIC, LDH, ALT #### [facility] [address] [place] [address] Anabella Shalonda IG % 0.5 % Normal 0.0-0.5 [facility] Comment on above: Performed By: #### A ST, URIC, LDH, ALT #### [facility] [address] [place] [address] Anabella Shalonda LYMPH # 2.0 103/ul Normal 1.2-3.8 [facility] Comment on above: Performed By: #### A ST, URIC, LDH, ALT #### [facility] [address] [place] [address] Anabella Shalonda Lymphocytes/100 WBC (Bld) 15.6 % Critically low 20.5-60.0 [facility] Comment on above: Performed By: #### A ST, URIC, LDH, ALT #### [facility] [address] [place], [place] [id number] Anabella Liz MANUAL DIFF REQ NO Normal [facility] Comment on above: Performed By: #### A ST, URIC, LDH, ALT #### [facility] [address] [place], [place] [id number] Anabella Liz MCH (RBC) [Entitic mass] 30.5 pg Normal 26.7-34.0 [facility] Comment on above: Performed By: #### A ST, URIC, LDH, ALT #### [facility] [address] [place] [address] Anabella Liz MCHC (RBC) [Mass/Vol] 32.2 g/dL Normal 29.9-35.2 [facility] Comment on above: Performed By: #### A ST, URIC, LDH, ALT #### [facility] [address] [place] [address] Anabella Liz MCV (RBC) [Entitic vol] 94.8 fL Normal 81.0-99.0 [facility] Comment on above: Performed By: #### A ST, URIC, LDH, ALT #### [facility] [address] [place] [address] Anabella Lzi MONO # 0.5 103/ul Normal 0.3-0.8 [facility] Comment on above: Performed By: #### A ST, URIC, LDH, ALT #### [facility] [address] [place] [address] Anabella Liz Monocytes/100 WBC (Bld) 3.6 % Normal 1.7-12.0 [facility] Comment on above: Performed By: #### A ST, URIC, LDH, ALT #### [facility] [address] [place] [address] Anabellacarissa Liz NEUT # 10.1 103/ul Critically high 1.4-6.5 [facility] Comment on above: Performed By: #### A ST, URIC, LDH, ALT #### [facility] [address] [address] Anabella Liz Neutrophils/100 WBC (Bld) 78.8 % Critically high 43.0-75.0 [facility] Comment on above: Performed By: #### A ST, URIC, LDH, ALT #### [facility] [address] [place] [address] Anabella Liz Platelet mean volume (Bld) [Entitic vol] 12.1 fL Normal 9.5-13.5 [facility] Comment on above: Performed By: #### A ST, URIC, LDH, ALT #### [facility] [address] [place] [address] Anabella Liz PLT 195 103/ul Normal 150-450 [facility] Comment on above: Performed By: #### A ST, URIC, LDH, ALT #### [facility] [address] [place] [address] Anabella Liz RBC 3.83 106/ul Critically low 4.20-5.40 [facility] Comment on above: Performed By: #### A ST, URIC, LDH, ALT #### [facility] [address] [place] [address] Anabella Liz WBC 12.9 103/ul Critically high 4.0-11.0 [facility] Comment on above: Performed By: #### A ST, URIC, LDH, ALT #### [facility] [address] [place] [address] Anabella Liz CREATININE CLEARon 1 CREA CLEARANCE 67.48 ml/min Critically low 75.00-115.00 Th [facility] Comment on above: Performed By: #### A ST, URIC, LDH, ALT #### [facility] [address] [place] [address] Anabella Liz CREA, 24 HR UR 461.40 mg/24 hr Critically low 800.00-1 ,800.0 0 [facility] Comment on above: Performed By: #### A ST, URIC, LDH, ALT #### [facility] [address] [place] [address] Anabella Shalonda Creatinine [Mass/Vol] 0.53 mg/dL Normal 0.52-1.04 [facility] Comment on above: Performed By: #### A ST, URIC, LDH, ALT #### [facility] [address] [address] Anabella Shalonda UR TOT VOL 3000 ml/24 HR Normal [facility] Comment on above: Performed By: #### A ST, URIC, LDH, ALT #### [facility] [address] [address] Anabella Shalonda URINE CREAT 15.38 mg/dL Critically low 20.00-300.00 [facility] Comment on above: Performed By: #### A ST, URIC, LDH, ALT #### [facility] [address] [place] [address] Anabella Shalonda LDHon 11-02-2020 LDH 187 U/L Normal 122-222 [facility] Comment on above: Performed By: #### A ST, URIC, LDH, ALT #### [facility] [address] [place] [address] Anabella Shalonda PROTEIN 24HR URINEon 021 T PROT, 24 HR UR 12.0 mg/24 hr Critically low 42.0-225.0 [facility] Comment on above: Performed By: #### A ST, URIC, LDH, ALT #### [facility] [address] [place] [address] Anabella Shalonda UR PROT 0.4 mg/dL Normal <=12.0 [facility] Comment on above: Performed By: #### A ST, URIC, LDH, ALT #### [facility] [address] [place] [address] Anabella Shalonda UR TOT VOL 3000 ml/24 HR Normal [facility] Comment on above: Performed By: #### A ST, URIC, LDH, ALT #### [facility] [address] [place] [address] Anabella Shalonda SGOTon 11-02-2020 AST [Catalytic activity/Vol] 19 U/L Normal 14-36 [facility] Comment on above: Performed By: #### A ST, URIC, LDH, ALT #### [facility] [address] [id number] Anabellacarissa Pierceen SGPTon 11-02-2020 ALT [Catalytic activity/Vol] 19 U/L Normal 9-52 [facility] Comment on above: Performed By: #### A ST, URIC, LDH, ALT #### [facility] [address] [address] Anabellacarissa Pierceen TSHon 11-02-2020 TSH 1.341 uIU/mL Normal 0.470-4.680 [facility] Comment on above: Performed By: #### A ST, URIC, LDH, ALT #### [facility] [address] [place] [address] Anabella Shalonda TSH RANGE SEE BELOW Normal [facility] Comment on above: Result Comment: <0.3 4 UIU/ml HYPERTHYROID 0.34-5.60 UIU/ml EUTHYROID >5.60 UIU/ml HYPOTHYROID Performed By: #### A ST, URIC, LDH, ALT #### [facility] [address] [place] [address] Anabella Shalonda URIC ACID SERUMon 11-02-2020 Urate [Mass/Vol] 3.9 mg/dL Normal 2.5-6.2 [facility] Comment on above: Performed By: #### A ST, URIC, LDH, ALT #### [facility] [address] [place], [place] [id number] Anabella Shalonda CULTURE URINEon 10-22-2020 CULTURE URINE Culture Observations : No growth. Normal [facility] Comment on above: Performed By: #### A ST, URIC, LDH, ALT #### [facility] [address] [place], [place] [id number] Anabella Shalonda UA RANDOM W/MICROSCOPICon BACTERIA TRACE Abnormal NONE SEEN [facility] Comment on above: Performed By: #### A ST, URIC, LDH, ALT #### [facility] [address] [id number] Anabella Shalonda Bilirubin Ql (U) Negative Normal NEGATIVE [facility] Comment on above: Performed By: #### A ST, URIC, LDH, ALT #### [facility] [address] [address] Anabella Shalonda CAST NONE SEEN Normal NONE SEEN [facility] Comment on above: Performed By: #### A ST, URIC, LDH, ALT #### [facility] [address] [address] Anabella Shalonda Clarity (U) CLEAR Normal CLEAR [facility] Comment on above: Performed By: #### A ST, URIC, LDH, ALT #### [facility] [address] [address] Anabella Shalonda Color (U) LT. YELLOW Normal YELLOW [facility] Comment on above: Performed By: #### A ST, URIC, LDH, ALT #### [facility] [address] [place] [address] Anabella Shalonda Crystals LM Nom (Urine sed) NONE SEEN Normal NONE SEEN [facility] Comment on above: Performed By: #### A ST, URIC, LDH, ALT #### [facility] [address] [address] Anabella Shalonda Epithelial cells LM Ql (Urine sed) FEW Abnormal NONE SEEN /RARE [facility] Comment on above: Performed By: #### A ST, URIC, LDH, ALT #### [facility] [address] [place] [address] Anabella Shalonda Glucose Ql (U) Negative Normal NEGATIVE [facility] Comment on above: Performed By: #### A ST, URIC, LDH, ALT #### [facility] [address] [place] [address] Anabella Shalonda Hemoglobin Ql (U) Negative Normal NEGATIVE [facility] Comment on above: Performed By: #### A ST, URIC, LDH, ALT #### [facility] [address] [place] [address] Anabella Shalonda Ketones Ql (U) Negative Normal NEGATIVE [facility] Comment on above: Performed By: #### A ST, URIC, LDH, ALT #### [facility] [address] [place], [place] [address] Anabella Shalonda LEUKOCYTES SMALL Abnormal NEGATIVE [facility] Comment on above: Performed By: #### A ST, URIC, LDH, ALT #### [facility] [address] [place], [place] [id number] Anabella Shalonda MUCOUS NONE SEEN Normal NONE SEEN [facility] Comment on above: Performed By: #### A ST, URIC, LDH, ALT #### [facility] [address] [id number] Anabella Shalonda Nitrite Ql (U) Negative Normal NEGATIVE [facility] Comment on above: Performed By: #### A ST, URIC, LDH, ALT #### [facility] [address] [place], [place] [id number] Anabella Shalonda pH (U) 6.0 [pH] Normal 5-9 [facility] Comment on above: Performed By: #### A ST, URIC, LDH, ALT #### [facility] [address] [place] [address] Anabella Shalonda RBC 0-2 Normal 0-2 [facility] Comment on above: Performed By: #### A ST, URIC, LDH, ALT #### [facility] [address] [place] [address] Anabellacarissa Liz SPEC GRAVITY <=1.005 Abnormal 1.005-<=1.025 [facility] Comment on above: Performed By: #### A ST, URIC, LDH, ALT #### [facility] [address] [place], [place] [id number] Anabella Shalonda UA PROTEIN Negative Normal NEGATIVE/ TRACE [facility] Comment on above: Performed By: #### A ST, URIC, LDH, ALT #### [facility] [address] [place] [address] Anabellacarissa Pierceen Urobilinogen Qn (U) 0.2 {Rebecca'U}/dL Normal 0.2 - 1. 0 [facility] Comment on above: Performed By: #### A ST, URIC, LDH, ALT #### [facility] [address] [place] [address] Anabella Shalonda WBC 5-10 Abnormal NONE SEEN [facility] Comment on above: Performed By: #### A ST, URIC, LDH, ALT #### [facility] [address] [address] Anabella Liz PREG DATING >14WEEKSon US PREG DATING >14WEEKS [...] ANDREW STERLING Date: 2020-10-18 10:41 Normal [facility] CNOVon 02-23-2017 CNOV Office Visit (OBGYCC) ----CHRISTOPHERLILIBETH KNOWLES ([id number]) 1995 FDate Time Provider Department02/23/17 10:50 AM MATTI VENEGAS OBGY During your visit today, we recorded the following information about you: Blood pressure Weight Height 126/76 45.8 kg 1.651 Larisa Venegas MD 02/23/2017 12:04 PM SignedSUBJECTIVE: Lilibeth Dustinannette is a 21 year old female Patient [...] B96.89 (primarydiagnosis)Cou nseled in lengthDeclines referral to Airport Refuel[employer] Handler ID for nowWants to come back when she thinks that she has an active infection to confirmthe Dx.2. Genital herpes simplex, unspecified site - ICD9: 054.10, ICD10: A60.00As above.Spent 30 minutes with pt face to face. 20 minutes of that time was spent incPerri Villalobos Provider: RADHA MEMBRENO [[id number]]Allergies As of Date: 02/23/2017(Not on File)Date Reviewed: 02/23/2017Reviewed by: Gail Benavidez LPN - Fully AssessedReason for Visit: Consult [502] Cmt: chronic BV and herpes outbreaksPrimary Visit Diagnosis:Bacterial vaginosis [N76.0, B96.89] Other Visit Diagnosis:Genital herpes simplex, unspecified site [A60.00]Problem List As Of Date: 02/23/2017(None)Encou nter Number: [id number] Status:Closed by MATTI VENEGAS MD on 02/23/17 [facility] CNPNon 02-23-2017 CNPN Telephone (OBGYCC) ----LILIBETH VILLAFUERTE ([id number]) [address] [facility]02/23[facility]17 [facility] During your visit today, we recorded the [...] states she has an appt with herprimary WINDOWS ARCHITECT doctor Sunday and will get her shot then.Allergies As of Date: 02/23/2017(Not on File)Date Reviewed: 02/23/2017Reviewed by: Gail Benavidez LPN - Fully AssessedReason for Visit: Question [1327]Problem List As Of Date: 02/23/2017(None)[place] nter Number: [id number] Status:Closed by MATTI VENEGAS MD on 02/26/17 [facility] PROGRESSon 02-23-2017 PROGRESS HNO ID: [id number]: Matti Kirbyice: (none)Author Type: PhysicianType: Progress NotesFiled: 02/23/2017 12:04 [...] N76.0, B96.89(primary diagnosis)Counseled in lengthDeclines referral to [employer] Handler ID for nowWants to come back when she thinks that she has an active infection toconfirm the Dx.2. Genital herpes simplex, unspecified site - ICD9: 054.10, ICD10: A60.00As above.Spent 30 minutes with pt face to face. 20 minutes of that time was spentin counselingMatti Venegas MD Normal [facility] Vital Signs Date Time Vital Sign Value Performing Clinician Faci lity 09-05-2023 16:27-0500 Body weight 65.5 kg Jane Gricelda DO Work Phone: [facility] 09-05-2023 16:27-0500 Diastolic blood pressure 60 mm[Hg] Jane Gricelda DO Work Phone: [facility] 09-05-2023 16:27-0500 Systolic blood pressure 102 mm[Hg] Jane Gricelda DO Work Phone: [facility] Healthcare Encounters Encounter Date Encounter Type Care Provider Facility Start: 10-04-2023 End: 10-04-2023 ambulatory JANE GRICELDA Not Available Start: 09-19-2023 End: 09-19-2023 ambulatory JANE GRICELDA Not Available Start: 09-05-2023 End: 09-05-2023 ambulatory JANE GRICELDA Not Available Start: 09-05-2023 End: 09-05-2023 flow sheet Jane Gricelda DO Work Phone: [facility] OB Comment on above: Third trimester preg ankur; Genital 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 Start: 08-22-2023 End: 08-22-2023 ambulatory JACOBO VAN Not Available Start: 08-09-2023 End: 08-10-2023 ambulatory JANE [facility]AD[facility] Start: 07-25-2023 End: 07-25-2023 ambulatory JANE GRICELDA Not Available Start: 06-27-2023 End: 06-27-2023 ambulatory [...] Facility:[facility] Start: 03-25-2021 End: 03-25-2021 ambulatory RADHA MEMBRENO Facility:[facility] Start: 02-21-2021 End: 02-22-[address] ANDREW STERLING Facility:[facility] Start: 11-18-2020 End: 11-18-2020 ambulatory RADHA MEMBRENO Facility:[facility] Start: 11-02-2020 End: 11-03-2020 ambulatory RADHA MEMBRENO Facility:[facility] Start: 10-22-2020 End: 10-22-2020 ambulatory RADHA MEMBRENO Facility:[facility] Start: 10-18-2020 End: 10-19-[address] ANDREW STERLING Facility:[facility] Start: 02-23-2017 End: 02-23-2017 Ambulatory MATTIRod IRELANDELKE [facility] Procedures Date Procedure Procedure Detail Performing Clinician Start: 09-05-2023 Urnls dip stick/tabl et rgnt non-auto w/o micrscp Jane Madison DO Work Phone: Start: 04-05-2021 Delivery of Products of Conception, External Approach DR ANDREW STERLING Plan of Treatment Date Care Activity Detail Author Start: 09-19-2023 End: 09-19-2023 Patient encounter procedure 09/19/2023 3:30 PM EST Routine [facility] [address] [place] [address] Jane Madison, DO [address] [place] [address] [facility] Start: 03-30-2023 Influenza vaccination Influenza Vacc ine (#1) [facility] Payers Date Payer Category Payer Medicaid [employer] [employer] [place] [employer] [employer] [id number] 2022-Present [address] [place] [address] [id number] 2021 Managed Care HMO (unspecified) [employer]ET[employer] AETNA [id number] 2021-Present [address] [place] [address] HMO [id number] 2021 Private Health Insurance [id number] 1993 Unknown [id number] 2.16.840.1.374785.3.579.2.5 93 1993 Unknown [id number] 2.16.840.1.075978.3.579.2.5 93 1993 Unknown [id number] 2.16.840.1.739482.3.579.2.5 93 1993 Unknown [id number] 2.16.840.1.800215.3.579.2.5 93 1993 Unknown [id number] 2.16.840.1.520117.3.579.2.5 93 1993 Unknown [id number] 2.16.840.1.020765.3.579.2.5 93 1993 Unknown [id number] 2.16.840.1.336668.3.579.2.5 93 1993 Unknown [id number] 2.16.840.1.074484.3.579.2.5 93 1993 Unknown [id number] 2.16.840.1.969286.3.579.2.5 93 1993 Unknown [id number] 2.16.840.1.848138.3.579.2.5 93 1993 Unknown [id number] 2.16.840.1.408967.3.579.2.5 93 1993 Unknown [id number] 2.16.840.1.234136.3.579.2.1 286 1993 Unknown [id number] 2.16.840.1.402376.3.579.2.1 259 1993 Unknown [id number] 2.16.840.1.776185.3.579.2.1 259 1993 Unknown [id number] 2.16.840.1.959834.3.579.2.1 259 1993 Unknown [id number] 2.16.840.1.865951.3.579.2.1 259 1993 Unknown [id number] 2.16.840.1.696074.3.579.2.1 259 1993 Unknown [id number] 2.16.840.1.039764.3.579.2.1 259 1959 Medicaid [id number] 1959 Unknown [id number] 1961 Unknown [id number] Social History Date Type Detail Facility Tobacco smoking stat [facility] Tobacco smoking consumption unknown [facility] Start: 02-20-2023 [facility] Start: 1995 Sex Assigned At Female [facility] Start: 04-25-2023 Gender identity Identifies as female gender (finding) [facility] Start: 04-25-2023 Sexual orientation Heterosexual (fin ding) [facility] History of Present illness Narrative 09-05-2023 [...] section and content) DATE CREATED AUTHOR 01/23/2018 [facility] DATE CREATED AUTHOR AUTHOR'S ORGANIZ ATION 04/16/2021 [facility] DATE CREATED AUTHOR AUTHOR'S ORGANIZ ATION 08/12/2023 [facility] DATE CREATED AUTHOR AUTHOR'S ORGANIZ ATION 10/05/2023 [facility] EPIC Reason for Visit (unrecogniz ed section and content) Reason Comments Routine Visit Care Teams (unrecognized sec tion and content) Prepress Stripper Relationship Specialty Start Date End Date Vincent Min MD [address] [place] [address] PCP - General Family Medicine 08/22/23 FOR [...] BE BASED ON THE PRIMARY CLINICAL RECORDS. [facility] [employer] [facility]. provides no warranty or guarantee of the accuracy or completeness of information in this document.
== END 2023-10-18 20:36 | disposition home or self-care (01) ==
LOC: LAB 20:35
PROVIDERS: Visit Provider Obstetrics & Gynecology
DX: Z34.93 Encounter for supervision of normal pregnancy, unspecified, third trimester (principal)
CPT/HCPCS: 87081

== ENCOUNTER 2023-11-14 05:13 | Inpatient (IN) | payer OTHER, MEDICAID, SELFPAY ==
[2023-11-14] VITALS (31 sets, daily range): BP systolic 110–158; BP diastolic 55–90; PULSE 58–92; TEMP 36.2–36.6
--- OUTSIDE RECORDS SUMMARY | 2023-11-14 05:16 | XMS_ITS | CCD ---
Author Organization [employer] Care Team Providers Care Signal Intelligence/Electronic Warfare Name Role Phone MATTI VENEGAS Unavailable Unavailable [...] MEMBRENO Attending Unavailable RADHA MEMBRENO Admitting Unavailable NADERENatalio, DR VINCENT Juárez Primary Care Unavailable RADHA MEMBRENO Attending Unavailable RADHA MEMBRENO Admitting Unavailable RADHA MEMBRENO Consulting Unavailable MISC, DR MISHRA Primary Care Unavailable HALLEI, DR ANDREW Lance Consulting Unavailable RADHA MEMBRENO [...] MEMBRENO Admitting Unavailable RADHA MEMBRENO Consulting Unavailable PAKO, DR VINCENT Juárez Primary Care Unavailable RADHA MEMBRENO Attending Unavailable RADHA MEMBRENO Admitting Unavailable RADHA MEMBRENO Consulting Unavailable DR VINCENT MIN Primary Care Unavailable JANE MADISON R Referring Unavailable VINCENT MIN Primary Care Unavailable Vincent Min MD Primary Care Provider [phone] JANE MADISON Attending Unavailable JACOBO VAN Attending Unavailable GRICELDA, JANE Attending Unavailable GRICELDA, JANE Attending Unavailable GRICELDA, JANE Attending Unavailable GRICELDA, JANE Attending Unavailable GRICELDA, JANE Attending Unavailable GRICELDA, JANE Attending Unavailable JACOBO VAN Attending Unavailable GRICELDA, JANE Attending Unavailable JACOBO VAN Attending Unavailable Allergies Allergy Classification Reported Allergen(s) Allergy Type Date of Onset Reaction(s) Facility (1 source) nabumetone Drug Allergy [facility] Repository (1 source) oxyCODONE Drug Allergy [facility] Medications Current Medications Medication Drug [...] applicable or unspecified; Translations: [MAT CARE OTH AR FTL GRTH 3RD TM UNS] Onset: 02-25-2021 [...] Negative Negative - 4(70) +++ mg/dL [facility] Blood, UA Negative Negative - 50 Kendell/mcL [facility] Clarity, UA [facility] re Color, UA Yellow [facility] Glucose, UA Negative Negative - 1999(110) ++++ mg/dL [facility] Interpretation and review of laboratory results [facility] re Ketones, UA Negative Negative - 160(16) ++++ mg/dL [facility] Leukocytes, UA Negative Negative - 500+++ Laureen/mcL [facility] Nitrite, UA Negative Negative - Positive [facility] pH, UA 6.0 5 - 9 [facility] e Protein, UA Negative Negative - 1999(20) ++++ mg/dL [facility] Spec Grav, UA 1.010 1 - 1.03 [facility] Urobilinogen, UA 0.2 0.2 - 12 mg/dL [facility] CBC AND AUTO DIFFon 01-11-20 24 ABSOLUTE BASOPHIL 0.0 X10E9/L Normal 0.0-0.2 [facility] Comment on above: Performed By: #### 1 504-0, CBCA #### [facility] ([id number]) [address], [address] [place] [address] ABSOLUTE NEUTROPHIL 11.6 X10E9/L High 1.5-6.6 [facility] Comment on above: Performed By: #### 1 504-0, CBCA #### [facility] ([id number]) [address], [address] [place] [address] Basophils/100 WBC (Bld) 0.2 % Normal [facility] Comment on above: Performed By: #### 1 504-0, CBCA #### [facility] ([id number]) [address], [address] [place] [address] Eosinophils (Bld) [#/Vol] 0.2 10*3/uL Normal 0.0-0.4 [facility] Comment on above: Performed By: #### 1 504-0, CBCA #### [facility] ([id number]) [address], [address] [place] [address] Eosinophils/100 WBC (Bld) 1.1 % Normal [facility] Comment on above: Performed By: #### 1 504-0, CBCA #### [facility] ([id number]) [address], [address] [place] [address] Erythrocyte distribution width (RBC) [Ratio] 14.6 % Normal 11.5-15.0 [facility] Comment on above: Performed By: #### 1 504-0, CBCA #### [facility] ([id number]) [address], [address] [place] [address] Hematocrit (Bld) [Volume fraction] 37.0 % Normal 35-47 [facility] Comment on above: Performed By: #### 1 504-0, CBCA #### [facility] ([id number]) [address], [address] [place] [address] Hemoglobin (Bld) [Mass/Vol] 12.3 g/dL Normal 11.7-15.5 [facility] Comment on above: Performed By: #### 1 504-0, CBCA #### [facility] ([id number]) [address], [address] [place] [address] Lymphocytes (Bld) [#/Vol] 2.1 10*3/uL Normal 1.0-3.5 [facility] Comment on above: Performed By: #### 1 504-0, CBCA #### [facility] ([id number]) [address], [address] [place] [address] Lymphocytes/100 WBC (Bld) 14.5 % Normal [facility] Comment on above: Performed By: #### 1 504-0, CBCA #### [facility] ([id number]) [address], [address] [place] [address] MCH (RBC) [Entitic mass] 31.5 pg Normal 27-34 [facility] Comment on above: Performed By: #### 1 504-0, CBCA #### [facility] ([id number]) [address], [address] [place] [address] MCHC (RBC) [Mass/Vol] 33.1 g/dL Normal 32-36 [facility] Comment on above: Performed By: #### 1 504-0, CBCA #### [facility] ([id number]) [address] [place] [address] MCV (RBC) [Entitic vol] 95 fL Normal 80-100 [facility] Comment on above: Performed By: #### 1 504-0, CBCA #### [facility] ([id number]) [address], [address] [place] [address] Monocytes (Bld) [#/Vol] 0.4 10*3/uL Normal 0-0.9 [facility] Comment on above: Performed By: #### 1 504-0, CBCA #### [facility] ([id number]) [address], [address] [place] [address] Monocytes/100 WBC (Bld) 2.7 % Normal [facility] Comment on above: Performed By: #### 1 504-0, CBCA #### [facility] ([id number]) [address], [address] [place] [address] Neutrophils/100 WBC (Bld) 81.5 % Normal [facility] Comment on above: Performed By: #### 1 504-0, CBCA #### [facility] ([id number]) [address], [address] [place] [address] Platelet mean volume (Bld) [Entitic vol] 10.6 fL Normal 7-12 [facility] Comment on above: Performed By: #### 1 504-0, CBCA #### [facility] ([id number]) [address], [address] [place] [address] Platelets (Bld) [#/Vol] 199 10*3/uL Normal 150-450 [facility] Comment on above: Performed By: #### 1 504-0, CBCA #### [facility] ([id number]) [address], [address] [place] [address] RBC COUNT 3.89 X10E12/L Normal 3.80-5.20 [facility] Comment on above: Performed By: #### 1 504-0, CBCA #### [facility] ([id number]) [address], [address] [place] [address] WBC (Bld) [#/Vol] 14.2 10*3/uL High 4.0-11.0 [facility] Comment on above: Performed By: #### 1 504-0, CBCA #### [facility] ([id number]) [address] [place] [address] Glucose 1 Hr post 50 g gluco se PO [Mass/Vol]on 08-09-2023 GLU 1H POST 50G LOAD 106 mg/dL Normal 65-139 [facility] Comment on above: Performed By: #### 1 504-0, CBCA #### [facility] ([id number]) [address] [place] [address] CBC W MANUAL DIFFon 04-06-20 21 ATYPICAL LYMPH # Normal [facility] Comment on above: Performed By: #### A ST, URIC, LDH, ALT #### [facility] [address] [place] [address] Anabella Shalonda ATYPICAL LYMPH % Normal [facility] Comment on above: Performed By: #### A ST, URIC, LDH, ALT #### [facility] [address] [address] Anabella Shalonda BAND # Normal 0.0-0.3 [facility] Comment on above: Performed By: #### A ST, URIC, LDH, ALT #### [facility] [address] [place] [address] Anabella Shalonda BAND % Normal 0-5 [facility] Comment on above: Performed By: #### A ST, URIC, LDH, ALT #### [facility] [address] [address] Anabella Shalonda BASOM # 0.00 103/ul Normal 0.00-0.10 [facility] Comment on above: Performed By: #### A ST, URIC, LDH, ALT #### [facility] [address] [address] Anabella Shalonda BASOM % 0.0 % Critically low 0.2-2.[address] [facility] Comment on above: Performed By: #### A ST, URIC, LDH, ALT #### [facility] [address] [address] Anabella Shalonda BLAST # Normal [facility] Comment on above: Performed By: #### A ST, URIC, LDH, ALT #### [facility] [address] [address] Anabella Shalonda BLAST % Normal [facility] Comment on above: Performed By: #### A ST, URIC, LDH, ALT #### [facility] [address] [address] Anabella Shalonda CORRECTED WBC Normal 4.0-11.0 [facility] Comment on above: Performed By: #### A ST, URIC, LDH, ALT #### [facility] [address] [address] Anabella Shalonda EOS # 0.15 103/ul Normal 0.00-0.70 [facility] Comment on above: Performed By: #### A ST, URIC, LDH, ALT #### [facility] [address] [address] Anabella Shalonda EOS% 1.0 % Normal 0.9-7.0 [facility] Comment on above: Performed By: #### A ST, URIC, LDH, ALT #### [facility] [address] [address] Anabella Shalonda HCT 32.4 % Critically low 36.0-48.0 [facility] Comment on above: Performed By: #### A ST, URIC, LDH, ALT #### [facility] [address] [address] Anabella Shalonda HGB 10.5 g/dl Critically low 12.0-16.0 [facility] Comment on above: Performed By: #### A ST, URIC, LDH, ALT #### [facility] [address] [address] Anabella Shalonda LYMPHM # 2.68 103/ul Normal 1.20-3.80 [facility] Comment on above: Performed By: #### A ST, URIC, LDH, ALT #### [facility] [address] [address] Anabella Shalonda LYMPHM% 18.0 % Critically low 20.5-60.0 [facility] Comment on above: Performed By: #### A ST, URIC, LDH, ALT #### [facility] [address] [place] [address] Anabellacarissa Pierceen MCH 30.8 pg Normal 26.7-34.0 [facility] Comment on above: Performed By: #### A ST, URIC, LDH, ALT #### [facility] [address] [address] Anabellacarissa Pierceen MCHC 32.4 g/dl Normal 29.9-35.2 [facility] Comment on above: Performed By: #### A ST, URIC, LDH, ALT #### [facility] [address] [place] [address] Anabella Shalonda MCV 95.0 fL Normal 81.0-99.0 [facility] Comment on above: Performed By: #### A ST, URIC, LDH, ALT #### [facility] [address] [place] [address] Anabella Shalonda METAMYELOCYTE # Normal [facility] Comment on above: Performed By: #### A ST, URIC, LDH, ALT #### [facility] [address] [place] [address] Anabella Shalonda METAMYELOCYTE % Normal [facility] Comment on above: Performed By: #### A ST, URIC, LDH, ALT #### [facility] [address] [place] [address] Anabella Shalonda MONOM# 0.30 103/ul Normal 0.30-0.80 [facility] Comment on above: Performed By: #### A ST, URIC, LDH, ALT #### [facility] [address] [place] [address] Anabella Shalonda MONOM% 2.0 % Normal 1.7-12.0 [facility] Comment on above: Performed By: #### A ST, URIC, LDH, ALT #### [facility] [address] [place] [address] Anabella Shalonda MPV 13.5 fL Normal 9.5-13.5 [facility] Comment on above: Performed By: #### A ST, URIC, LDH, ALT #### [facility] [address] [address] Anabellacarissa Pierceen MYELOCYTE # Normal [facility] Comment on above: Performed By: #### A ST, URIC, LDH, ALT #### [facility] [address] [address] Anabellacarissa Pierceen MYELOCYTE % Normal [facility] Comment on above: Performed By: #### A ST, URIC, LDH, ALT #### [facility] [address] [address] Anabella Shalonda NRBC Normal [facility] Comment on above: Performed By: #### A ST, URIC, LDH, ALT #### [facility] [address] [address] Anabellacarissa Pierceen PLT 120 103/ul Critically low 150-450 [facility] Comment on above: Performed By: #### A ST, URIC, LDH, ALT #### [facility] [address] [address] Anabellacarissa Pierceen RBC 3.41 106/ul Critically low 4.20-5.40 [facility] Comment on above: Performed By: #### A ST, URIC, LDH, ALT #### [facility] [address] [address] Anabellacarissa Pierceen RDW 15.3 % Critically high 11.0-15.0 [facility] Comment on above: Performed By: #### A ST, URIC, LDH, ALT #### [facility] [address] [address] Anabellacarissa Pierceen SEG # 11.77 103/ul Critically high 1.40-6.50 [facility] Comment on above: Performed By: #### A ST, URIC, LDH, ALT #### [facility] [address] [address] Anabella Shalonda SEG % 79.0 % Critically high 43.0-75.0 [facility] Comment on above: Performed By: #### A ST, URIC, LDH, ALT #### [facility] [address] [address] Anabella Shalonda WBC 14.9 103/ul Critically high 4.0-11.0 [facility] Comment on above: Performed By: #### A ST, URIC, LDH, ALT #### [facility] [address] [place] [address] Anabella Shalonda CBC AUTO DIFFon 04-05-2021 BASO # 0.1 103/ul Normal 0.0-0.1 [facility] Comment on above: Performed By: #### A ST, URIC, LDH, ALT #### [facility] [address] [place] [address] Anabella Shalonda Basophils/100 WBC (Bld) 0.4 % Normal 0.2-2.0 [facility] Comment on above: Performed By: #### A ST, URIC, LDH, ALT #### [facility] [address] [place] [address] Anabella Shalonda EO # 0.1 103/ul Normal 0.0-0.7 [facility] Comment on above: Performed By: #### A ST, URIC, LDH, ALT #### [facility] [address] [place] [address] Anabella Shalonda Eosinophils/100 WBC (Bld) 0.7 % Critically low 0.9-7.0 [facility] Comment on above: Performed By: #### A ST, URIC, LDH, ALT #### [facility] [address] [place], [place] [id number] Anabella Shalonda Erythrocyte distribution width (RBC) [Ratio] 15.2 % Critically high 11.0-15.0 [facility] Comment on above: Performed By: #### A ST, URIC, LDH, ALT #### [facility] [address] [place] [address] Anabella Shalonda Hematocrit (Bld) [Volume fraction] 35.9 % Critically low 36.0-48.0 [facility] Comment on above: Performed By: #### A ST, URIC, LDH, ALT #### [facility] [address] [place] [address] Anabella Shalonda Hemoglobin (Bld) [Mass/Vol] 11.7 g/dL Critically low 12.0-16.0 [facility] Comment on above: Performed By: #### A ST, URIC, LDH, ALT #### [facility] [address] [place] [address] Anabella Shalonda IG # 0.09 10e3/ul Critically high 0.00-0.03 [facility] Comment on above: Performed By: #### A ST, URIC, LDH, ALT #### [facility] [address] [address] Anabella Shalonda IG % 0.7 % Critically high 0.0-0.5 [facility] Comment on above: Performed By: #### A ST, URIC, LDH, ALT #### [facility] [address] [place] [address] Anabella Shalonda LYMPH # 1.9 103/ul Normal 1.2-3.8 [facility] Comment on above: Performed By: #### A ST, URIC, LDH, ALT #### [facility] [address] [place] [address] Anabella Shalonda Lymphocytes/100 WBC (Bld) 14.5 % Critically low 20.5-60.0 [facility] Comment on above: Performed By: #### A ST, URIC, LDH, ALT #### [facility] [address] [place] [address] Anabella Shalonda MANUAL DIFF REQ NO Normal [facility] Comment on above: Performed By: #### A ST, URIC, LDH, ALT #### [facility] [address] [place] [address] Anabella Shalonda MCH (RBC) [Entitic mass] 30.2 pg Normal 26.7-34.0 [facility] Comment on above: Performed By: #### A ST, URIC, LDH, ALT #### [facility] [address] [place] [address] Anabella Shalonda MCHC (RBC) [Mass/Vol] 32.6 g/dL Normal 29.9-35.2 [facility] Comment on above: Performed By: #### A ST, URIC, LDH, ALT #### [facility] [address] [id number] Anabellacarissa Liz MCV (RBC) [Entitic vol] 92.5 fL Normal 81.0-99.0 [facility] Comment on above: Performed By: #### A ST, URIC, LDH, ALT #### [facility] [address] [address] Anabellacarissa Pierceen MONO # 0.7 103/ul Normal 0.3-0.8 [facility] Comment on above: Performed By: #### A ST, URIC, LDH, ALT #### [facility] [address] [place] [address] Anabella Shalonda Monocytes/100 WBC (Bld) 5.1 % Normal 1.7-12.0 [facility] Comment on above: Performed By: #### A ST, URIC, LDH, ALT #### [facility] [address] [place] [address] Anabella Shalonda NEUT # 10.4 103/ul Critically high 1.4-6.5 [facility] Comment on above: Performed By: #### A ST, URIC, LDH, ALT #### [facility] [address] [place] [address] Anabella Shalonda Neutrophils/100 WBC (Bld) 78.6 % Critically high 43.0-75.0 [facility] Comment on above: Performed By: #### A ST, URIC, LDH, ALT #### [facility] [address] [place] [address] Anabella Shalonda Platelet mean volume (Bld) [Entitic vol] 13.3 fL Normal 9.5-13.5 [facility] Comment on above: Performed By: #### A ST, URIC, LDH, ALT #### [facility] [address] [place], [place] [address] Anabella Shalonda PLT 142 103/ul Critically low 150-[address] [facility] Comment on above: Performed By: #### A ST, URIC, LDH, ALT #### [facility] [address] [place] [address] Anabella Shalonda RBC 3.88 106/ul Critically low 4.20-5.40 [facility] Comment on above: Performed By: #### A ST, URIC, LDH, ALT #### [facility] [address] [place] [address] Anabella Liz WBC 13.2 103/ul Critically high 4.0-11.0 [facility] Comment on above: Performed By: #### A ST, URIC, LDH, ALT #### [facility] [address] [place] [address] Anabella Shalonda DRUG SCREEN RAPID (URINE)on 04-05-2021 AMP Negative Normal NEGATIVE [facility] Comment on above: Performed By: #### D RUGRPD #### [facility] [address] [place] [address] Anabella Shalonda BAR Negative Normal NEGATIVE [facility] Comment on above: Performed By: #### D RUGRPD #### [facility] [address] [place] [address] Anabella Shalonda BUP Negative Normal NEGATIVE [facility] Comment on above: Performed By: #### D RUGRPD #### [facility] [address] [place] [address] Anabella Shalonda BZO Negative Normal NEGATIVE [facility] Comment on above: Performed By: #### D RUGRPD #### [facility] [address] [place] [address] Anabella Liz JP Negative Normal NEGATIVE [facility] Comment on above: Performed By: #### D RUGRPD #### [facility] [address] [place] [address] Anabella Shalonda CUT-OFFS SEE BELOW Normal [facility] Comment on above: Result Comment: AMP [...] ng/mL Performed By: #### D RUGRPD #### [facility] [address] [place] [address] Anabella Shalonda DRUG CUT HEADER DRUG CLASS TEST SYSTEM CUT-OFF CONCENTRATIONS ARE FOLLOWS: Normal [facility] Comment on above: Performed By: #### D RUGRPD #### [facility] [address] [address] Anabella Shalonda mAMP Negative Normal NEGATIVE [facility] Comment on above: Performed By: #### D RUGRPD #### [facility] [address] [place] [address] Anabella Shalonda MTD Negative Normal NEGATIVE [facility] Comment on above: Performed By: #### D RUGRPD #### [facility] [address] [place] [address] Anabella Shalonda OPI Negative Normal NEGATIVE [facility] Comment on above: Performed By: #### D RUGRPD #### [facility] [address] [place] [address] Anabella Shalonda OXY Negative Normal NEGATIVE [facility] Comment on above: Performed By: #### D RUGRPD #### [facility] [address] [place] [address] Anabella Shalonda PCP Negative Normal NEGATIVE [facility] Comment on above: Performed By: #### D RUGRPD #### [facility] [address] [place] [address] Anabella Shalonda PPX Negative Normal NEGATIVE [facility] Comment on above: Performed By: #### D RUGRPD #### [facility] [address] [place] [address] Anabella Shalonda TCA Negative Normal NEGATIVE [facility] Comment on above: Performed By: #### D RUGRPD #### [facility] [address] [place] [address] Anabella Shalonda THC Negative Normal NEGATIVE [facility] Comment on above: Performed By: #### D RUGRPD #### [facility] [address] [place] [id number] Anabella Shalonda LDHon 04-05-2021 LDH 473 U/L Critically high 122-222 [facility] Comment on above: Performed By: #### A LT, LDH, AST, URIC #### [facility] [address] [place], [place] [id number] Anabella Shalonda SGOTon 04-05-2021 AST [Catalytic activity/Vol] 79 U/L Critically high 14-36 [facility] Comment on above: Performed By: #### A LT, LDH, AST, URIC #### [facility] [address] [place], [place] [id number] Anabella Shalonda SGPTon 04-05-2021 ALT [Catalytic activity/Vol] 81 U/L Critically high 9-52 [facility] Comment on above: Performed By: #### A LT, LDH, AST, URIC #### [facility] [address] [place] [address] Anabella Shalonda TYPE AND SCREENon 04-05-2021 TYPE AND SCREEN Antibody Screen NEGATIVE Blood Bank Notes completed by john ABO Rh Typing O Rh Positive Blood Bank Notes completed by john Normal The [facility] Comment on above: Performed By: #### A ST, URIC, LDH, ALT #### [facility] [address] [place], [place] [id number] Anabellacarissa Liz URIC ACID SERUMon 04-05-2021 Urate [Mass/Vol] 7.7 mg/dL Critically high 2.5-6.2 [facility] Comment on above: Performed By: #### A LT, LDH, AST, URIC #### [facility] [address] [place] [address] Anabella Shalonda BUNon 03-28-2021 Urea nitrogen [Mass/Vol] 7.0 mg/dL Normal 7.0-17.0 [facility] Comment on above: Performed By: #### A ST, URIC, LDH, ALT #### [facility] [address] [place] [address] Anabella Shalonda CBC AUTO DIFFon 03-28-2021 BASO # 0.0 103/ul Normal 0.0-0.1 [facility] Comment on above: Performed By: #### A ST, URIC, LDH, ALT #### [facility] [address] [place] [address] Anabella Shalonda Basophils/100 WBC (Bld) 0.3 % Normal 0.2-2.0 [facility] Comment on above: Performed By: #### A ST, URIC, LDH, ALT #### [facility] [address] [place] [address] Anabella Shalonda EO # 0.1 103/ul Normal 0.0-0.7 [facility] Comment on above: Performed By: #### A ST, URIC, LDH, ALT #### [facility] [address] [place] [address] Anabella Pierceen Eosinophils/100 WBC (Bld) 1.1 % Normal 0.9-7.0 [facility] Comment on above: Performed By: #### A ST, URIC, LDH, ALT #### [facility] [address] [place] [address] Anabellacarissa Liz Erythrocyte distribution width (RBC) [Ratio] 14.7 % Normal 11.0-15.0 [facility] Comment on above: Performed By: #### A ST, URIC, LDH, ALT #### [facility] [address] [place] [address] Anabellacarissa Liz Hematocrit (Bld) [Volume fraction] 34.7 % Critically low 36.0-48.0 [facility] Comment on above: Performed By: #### A ST, URIC, LDH, ALT #### [facility] [address] [place] [address] Anabellacarissa Liz Hemoglobin (Bld) [Mass/Vol] 11.4 g/dL Critically low 12.0-16.0 [facility] Comment on above: Performed By: #### A ST, URIC, LDH, ALT #### [facility] [address] [place] [address] Anabella Shalonda IG # 0.09 10e3/ul Critically high 0.00-0.03 [facility] [place] Comment on above: Performed By: #### A ST, URIC, LDH, ALT #### [facility] [address] [address] Anabella Shalonda IG % 0.7 % Critically high 0.0-0.5 [facility] Comment on above: Performed By: #### A ST, URIC, LDH, ALT #### [facility] [address] [place] [address] Anabella Shalonda LYMPH # 2.2 103/ul Normal 1.2-3.8 [facility] Comment on above: Performed By: #### A ST, URIC, LDH, ALT #### [facility] [address] [place] [address] Anabella Shalonda Lymphocytes/100 WBC (Bld) 16.5 % Critically low 20.5-60.0 [facility] Comment on above: Performed By: #### A ST, URIC, LDH, ALT #### [facility] [address] [place] [address] Anabella Shalonda MANUAL DIFF REQ NO Normal [facility] Comment on above: Performed By: #### A ST, URIC, LDH, ALT #### [facility] [address] [place] [address] Anabella Shalonda MCH (RBC) [Entitic mass] 30.4 pg Normal 26.7-34.0 [facility] Comment on above: Performed By: #### A ST, URIC, LDH, ALT #### [facility] [address] [place] [address] Anabellacarissa Liz MCHC (RBC) [Mass/Vol] 32.9 g/dL Normal 29.9-35.2 [facility] Comment on above: Performed By: #### A ST, URIC, LDH, ALT #### [facility] [address] [place] [address] Anabella Shalonda MCV (RBC) [Entitic vol] 92.5 fL Normal 81.0-99.0 [facility] Comment on above: Performed By: #### A ST, URIC, LDH, ALT #### [facility] [address] [place] [address] Anabella Shalonda MONO # 0.6 103/ul Normal 0.3-0.8 [facility] Comment on above: Performed By: #### A ST, URIC, LDH, ALT #### [facility] [address] [place] [address] Anabella Pierceen Monocytes/100 WBC (Bld) 4.3 % Normal 1.7-12.0 [facility] Comment on above: Performed By: #### A ST, URIC, LDH, ALT #### [facility] [address] [place] [address] Anabella Shalonda NEUT # 10.2 103/ul Critically high 1.4-6.5 [facility] Comment on above: Performed By: #### A ST, URIC, LDH, ALT #### [facility] [address] [place] [address] Anabella Pierceen Neutrophils/100 WBC (Bld) 77.1 % Critically high 43.0-75.0 [facility] Comment on above: Performed By: #### A ST, URIC, LDH, ALT #### [facility] [address] [place] [address] Anabella Liz Platelet mean volume (Bld) [Entitic vol] 13.5 fL Normal 9.5-13.5 [facility] Comment on above: Performed By: #### A ST, URIC, LDH, ALT #### [facility] [address] [place] [address] Anabella Shalonda PLT 133 103/ul Critically low 150-[address] [facility] Comment on above: Performed By: #### A ST, URIC, LDH, ALT #### [facility] [address] [place] [address] Anabella Shalonda RBC 3.75 106/ul Critically low 4.20-5.40 [facility] Comment on above: Performed By: #### A ST, URIC, LDH, ALT #### [facility] [address] [place] [address] Anabella Shalonda WBC 13.2 103/ul Critically high 4.0-11.0 [facility] Comment on above: Performed By: #### A ST, URIC, LDH, ALT #### [facility] [address] [place] [address] Anabella Shalonda BASO # 0.1 103/ul Normal 0.0-0.1 [facility] Comment on above: Performed By: #### A ST, URIC, LDH, ALT #### [facility] [address] [place] [address] Anabella Shalonda Basophils/100 WBC (Bld) 0.4 % Normal 0.2-2.0 [facility] Comment on above: Performed By: #### A ST, URIC, LDH, ALT #### [facility] [address] [place] [address] Anabella Shalonda EO # 0.2 103/ul Normal 0.0-0.7 [facility] Comment on above: Performed By: #### A ST, URIC, LDH, ALT #### [facility] [address] [place] [address] Anabella Shalonda Eosinophils/100 WBC (Bld) 1.4 % Normal 0.9-7.0 [facility] Comment on above: Performed By: #### A ST, URIC, LDH, ALT #### [facility] [address] [place] [address] Anabella Shalonda Erythrocyte distribution width (RBC) [Ratio] 14.9 % Normal 11.0-15.0 [facility] Comment on above: Performed By: #### A ST, URIC, LDH, ALT #### [facility] [address] [place] [address] Anabella Shalonda Hematocrit (Bld) [Volume fraction] 36.5 % Normal 36.0-48.0 [facility] Comment on above: Performed By: #### A ST, URIC, LDH, ALT #### [facility] [address] [place] [address] Anabella Shalonda Hemoglobin (Bld) [Mass/Vol] 11.8 g/dL Critically low 12.0-16.0 [facility] Comment on above: Performed By: #### A ST, URIC, LDH, ALT #### [facility] [address] [place] [address] Anabella Shalonda IG # 0.11 10e3/ul Critically high 0.00-0.03 [facility] Comment on above: Performed By: #### A ST, URIC, LDH, ALT #### [facility] [address] [place] [address] Anabellacarissa Liz IG % 0.9 % Critically high 0.0-0.5 [facility] Comment on above: Performed By: #### A ST, URIC, LDH, ALT #### [facility] [address] [place] [address] Anabellacarissa Liz LYMPH # 2.0 103/ul Normal 1.2-3.8 [facility] Comment on above: Performed By: #### A ST, URIC, LDH, ALT #### [facility] [address] [place] [address] Anabella Liz Lymphocytes/100 WBC (Bld) 15.7 % Critically low 20.5-60.0 [facility] Comment on above: Performed By: #### A ST, URIC, LDH, ALT #### [facility] [address] [place] [address] Anabella Liz MANUAL DIFF REQ NO Normal [facility] Comment on above: Performed By: #### A ST, URIC, LDH, ALT #### [facility] [address] [place] [address] Anabella Liz MCH (RBC) [Entitic mass] 30.2 pg Normal 26.7-34.0 [facility] Comment on above: Performed By: #### A ST, URIC, LDH, ALT #### [facility] [address] [place] [address] Anabella Liz MCHC (RBC) [Mass/Vol] 32.3 g/dL Normal 29.9-35.2 [facility] Comment on above: Performed By: #### A ST, URIC, LDH, ALT #### [facility] [address] [place] [address] Anabellacarissa Liz MCV (RBC) [Entitic vol] 93.4 fL Normal 81.0-99.0 [facility] Comment on above: Performed By: #### A ST, URIC, LDH, ALT #### [facility] [address] [id number] Anabella Shalonda MONO # 0.7 103/ul Normal 0.3-0.8 [facility] Comment on above: Performed By: #### A ST, URIC, LDH, ALT #### [facility] [address] [id number] Anabella Shalonda Monocytes/100 WBC (Bld) 5.2 % Normal 1.7-12.0 [facility] Comment on above: Performed By: #### A ST, URIC, LDH, ALT #### [facility] [address] [id number] Anabella Shalonda NEUT # 9.5 103/ul Critically high 1.4-6.5 [facility] Comment on above: Performed By: #### A ST, URIC, LDH, ALT #### [facility] [address] [address] Anabella Shalonda Neutrophils/100 WBC (Bld) 76.4 % Critically high 43.0-75.0 [facility] Comment on above: Performed By: #### A ST, URIC, LDH, ALT #### [facility] [address] [id number] Anabellacarissa Pierceen Platelet mean volume (Bld) [Entitic vol] 13.8 fL Critically high 9.5-13.5 [facility] Comment on above: Performed By: #### A ST, URIC, LDH, ALT #### [facility] [address] [id number] Anabella Shalonda PLT 148 103/ul Critically low 150-[address] [facility] Comment on above: Performed By: #### A ST, URIC, LDH, ALT #### [facility] [address] [id number] Anabella Shalonda RBC 3.91 106/ul Critically low 4.20-5.40 [facility] Comment on above: Performed By: #### A ST, URIC, LDH, ALT #### [facility] [address] [id number] Anabella Shalonda WBC 12.5 103/ul Critically high 4.0-11.0 [facility] Comment on above: Performed By: #### A ST, URIC, LDH, ALT #### [facility] [address] [place] [address] Anabella Shalonda CHLAMYDIA/GONOCOCCUS PORTILLO (SW AB/URINE/PAPon 03-28-2021 Chlamydia trachomatis, PORTILLO Negative Normal Negative [facility] Comment on above: Performed By: #### C T/NGNA #### [facility] [address] [place], [place] [id number] Anabella Shalonda Neisseria gonorrhoeae, PORTILLO Negative Normal Negative [facility] Comment on above: Performed By: #### C T/NGNA #### [facility] [address] [place] [address] Anabella Shalonda CREATININE CLEARon 1 CREA CLEARANCE 102.10 ml/min Normal 75.00-115.00 [facility] Comment on above: Performed By: #### A ST, URIC, LDH, ALT #### [facility] [address] [place] [address] Anabella Shalonda CREA, 24 HR UR 1070.82 mg/24 hr Normal 800.00-1, 800.0 0 [facility] Comment on above: Performed By: #### A ST, URIC, LDH, ALT #### [facility] [address] [place] [address] Anabella Shalonda Creatinine [Mass/Vol] 0.72 mg/dL Normal 0.52-1.04 [facility] Comment on above: Performed By: #### A ST, URIC, LDH, ALT #### [facility] [address] [place] [address] Anabella Shalonda URINE CREAT 19.83 mg/dL Critically low 20.00-300.00 [facility] Comment on above: Performed By: #### A ST, URIC, LDH, ALT #### [facility] [address] [place] [address] Anabella Shalonda LDHon 03-28-2021 LDH 488 U/L Critically high 122-222 [facility] Comment on above: Performed By: #### A ST, URIC, LDH, ALT #### [facility] [address] [id number] Anabella Shalonda LDH 517 U/L Critically high 122-222 [facility] Comment on above: Performed By: #### A ST, URIC, LDH, ALT #### [facility] [address] [id number] Anabella Shalonda PROTEIN 24HR URINEon 021 UR PROT <5.0 Normal <=12.0 [facility] Comment on above: Performed By: #### A ST, URIC, LDH, ALT #### [facility] [address] [address] Anabella Shalonda UR TOT VOL 5400 ml/24 HR Normal [facility] Comment on above: Performed By: #### A ST, URIC, LDH, ALT #### [facility] [address] [place] [address] Anabella Shalonda SGOTon 03-28-2021 AST [Catalytic activity/Vol] 83 U/L Critically high 14 [facility] Comment on above: Performed By: #### A ST, URIC, LDH, ALT #### [facility] [address] [phone] Anabella Shalonda AST [Catalytic activity/Vol] 85 U/L Critically high [facility] Comment on above: Performed By: #### A ST, URIC, LDH, ALT #### [facility] [address] [place], [place] [id number] Anabella Shalonda SGPTon 03-28-2021 ALT [Catalytic activity/Vol] 82 U/L Critically high [facility] Comment on above: Performed By: #### A ST, URIC, LDH, ALT #### [facility] [address] [place], [place] [id number] Anabella Shalonda ALT [Catalytic activity/Vol] 85 U/L Critically high [facility] Comment on above: Performed By: #### A ST, URIC, LDH, ALT #### [facility] [address] [phone] Anabella Shalonda TSHon 03-28-2021 TSH 2.728 uIU/mL Normal 0.470-4.680 [facility] Comment on above: Performed By: #### A ST, URIC, LDH, ALT #### [facility] [address] [place], [place] [address] Anabellacarissa Pierceen TSH RANGE SEE BELOW Normal [facility] Comment on above: Result Comment: <0.3 4 UIU/ml HYPERTHYROID 0.34-5.60 UIU/ml EUTHYROID >5.60 UIU/ml HYPOTHYROID Performed By: #### A ST, URIC, LDH, ALT #### [facility] [address] [phone] Anabella Shalonda URIC ACID SERUMon 03-28-2021 Urate [Mass/Vol] 6.9 mg/dL Critically high 2.5-6.2 [facility] Comment on above: Performed By: #### A ST, URIC, LDH, ALT #### [facility] [address] [place] [address] Anabella Shalonda Urate [Mass/Vol] 7.0 mg/dL Critically high 2.5-6.2 [facility] Comment on above: Performed By: #### A ST, URIC, LDH, ALT #### [facility] [address] [place], [place] [id number] Anabella Shalonda US PREG BIOPHY W NON STRESSo n [...] ANDREW STERLING Date: 2021-03-28 16:40 Normal [facility] US PREG GROWTHon 03-28-2021 US PREG [...] by: ANDREW STERLING Date: 2021-03-28 16:39 Normal [facility] GROUP B STREP CULTUREon 02-28 S. agalactiae Ag Ql (Unsp spec) Culture Observations: NEGATIVE FOR GROUP B STREPTOCOCCUS. Normal [facility] Comment on above: Performed By: #### A ST, URIC, LDH, ALT #### [facility] [address] [place] [address] Anabella Liz US PREG GROWTHon 02-22-2021 US [...] by: ANDREW STERLING Date: 2021-02-22 07:58 Normal [facility] PAP ACOG PANEL 3: 19 to 27on 11-22-2020 . . Normal [facility] Comment on above: Result Comment: Perf ormed at: WB Performed By: #### A ST, URIC, LDH, ALT #### [facility] [address] [address] Anabella Liz Age Gdln ACOG Testing 19- Normal [facility] Comment on above: Performed By: #### A ST, URIC, LDH, ALT #### [facility] [address] [address] Anabellacarissa Liz Chlamydia, Nuc. Acid Amp Negative Normal Negative [facility] Comment on above: Result Comment: Perf ormed at: =G Performed By: #### A ST, URIC, LDH, ALT #### [facility] [address] [place] [address] Anabellacarissa Liz DIAGNOSIS: Comment Normal [facility] Comment on above: Result Comment: NEGA TIVE FOR INTRAEPITHELIAL LESION OR MALIGNANCY. Performed at: WB Performed By: #### A ST, URIC, LDH, ALT #### [facility] [address] [place] [address] Anabella Liz Gonococcus, Nuc. Acid Amp Negative Normal Negative [facility] Comment on above: Result Comment: Perf ormed at: =G Performed By: #### A ST, URIC, LDH, ALT #### [facility] [address] [place] [address] Anabellacarissa Pierceen Methodology: Comment Normal [facility] Comment on above: Result Comment: This liquid based ThinPrep(R) pap test was screened with the use of an image guided system. Performed at: WB Performed By: #### A ST, URIC, LDH, ALT #### [facility] [address] [place] [address] Anabellacarissa Liz Note: Comment Normal [facility] Comment on above: Result Comment: The Pap [...] #### A ST, URIC, LDH, ALT #### [facility] [address] [place] [address] Anabellacarissa Liz Performed by: Comment Normal [facility] Comment on above: Result Comment: Halima Alonso, Crusher Supervisor (ASCP) Performed at: WB Performed By: #### A ST, URIC, LDH, ALT #### [facility] [address] [place] [address] Anabella Shalonda Reflex Criteria: Comment Normal [facility] Comment on above: Result Comment: The HPV DNA reflex criteria were not met with this specimen result therefore, no HPV testing was performed. . Performed at: WB Performed By: #### A ST, URIC, LDH, ALT #### [facility] [address] [place] [address] Anabellacarissa Liz Specimen adequacy: Comment Normal [facility] Comment on above: Result Comment: Sati sfactory for evaluation. Endocervical and/or squamous metaplastic cells (endocervical component) are present. Performed at: WB Performed By: #### A ST, URIC, LDH, ALT #### [facility] [address] [place] [address] Anabella Shalonda BUNon 11-02-2020 Urea nitrogen [Mass/Vol] 8.0 mg/dL Normal 7.0-17.0 [facility] Comment on above: Performed By: #### A ST, URIC, LDH, ALT #### [facility] [address] [place] [address] Anabellacarissa Liz CBC AUTO DIFFon 11-02-2020 BASO # 0.1 103/ul Normal 0.0-0.1 [facility] Comment on above: Performed By: #### A ST, URIC, LDH, ALT #### [facility] [address] [place] [address] Shalonda Basophils/100 WBC (Bld) 0.4 % Normal 0.2-2.0 [facility] Comment on above: Performed By: #### A ST, URIC, LDH, ALT #### [facility] [address] [place] [address] Anabella Shalonda EO # 0.1 103/ul Normal 0.0-0.7 [facility] Comment on above: Performed By: #### A ST, URIC, LDH, ALT #### [facility] [address] [place] [address] Anabella Shalonda Eosinophils/100 WBC (Bld) 1.1 % Normal 0.9-7.0 [facility] Comment on above: Performed By: #### A ST, URIC, LDH, ALT #### [facility] [address] [place] [address] Anabella Shalonda Erythrocyte distribution width (RBC) [Ratio] 13.7 % Normal 11.0-15.0 [facility] Comment on above: Performed By: #### A ST, URIC, LDH, ALT #### [facility] [address] [place] [address] Anabella Shalonda Hematocrit (Bld) [Volume fraction] 36.3 % Normal 36.0-48.0 [facility] Comment on above: Performed By: #### A ST, URIC, LDH, ALT #### [facility] [address] [place] [address] Anabella Shalonda Hemoglobin (Bld) [Mass/Vol] 11.7 g/dL Critically low 12.0-16.0 [facility] Comment on above: Performed By: #### A ST, URIC, LDH, ALT #### [facility] [address] [place] [address] Anabella Shalonda IG # 0.07 10e3/ul Critically high 0.00-0.03 [facility] Comment on above: Performed By: #### A ST, URIC, LDH, ALT #### [facility] [address] [place] [address] Anabella Shalonda IG % 0.5 % Normal 0.0-0.5 [facility] Comment on above: Performed By: #### A ST, URIC, LDH, ALT #### [facility] [address] [place] [address] Anabella Shalonda LYMPH # 2.0 103/ul Normal 1.2-3.8 [facility] Comment on above: Performed By: #### A ST, URIC, LDH, ALT #### [facility] [address] [address] Anabella Liz Lymphocytes/100 WBC (Bld) 15.6 % Critically low 20.5-60.0 [facility] Comment on above: Performed By: #### A ST, URIC, LDH, ALT #### [facility] [address] [address] Anabella Liz MANUAL DIFF REQ NO Normal [facility] Comment on above: Performed By: #### A ST, URIC, LDH, ALT #### [facility] [address] [place] [address] Anabella Liz MCH (RBC) [Entitic mass] 30.5 pg Normal 26.7-34.0 [facility] Comment on above: Performed By: #### A ST, URIC, LDH, ALT #### [facility] [address] [place] [address] Anabella Pierceen MCHC (RBC) [Mass/Vol] 32.2 g/dL Normal 29.9-35.2 [facility] Comment on above: Performed By: #### A ST, URIC, LDH, ALT #### [facility] [address] [place] [address] Anabella Liz MCV (RBC) [Entitic vol] 94.8 fL Normal 81.0-99.0 [facility] Comment on above: Performed By: #### A ST, URIC, LDH, ALT #### [facility] [address] [place] [address] Anabella Liz MONO # 0.5 103/ul Normal 0.3-0.8 [facility] Comment on above: Performed By: #### A ST, URIC, LDH, ALT #### [facility] [address] [place] [address] Anabella Liz Monocytes/100 WBC (Bld) 3.6 % Normal 1.7-12.0 [facility] Comment on above: Performed By: #### A ST, URIC, LDH, ALT #### [facility] [address] [place] [address] Anabella iLz NEUT # 10.1 103/ul Critically high 1.4-6.5 [facility] Comment on above: Performed By: #### A ST, URIC, LDH, ALT #### [facility] [address] [address] Anabella Liz Neutrophils/100 WBC (Bld) 78.8 % Critically high 43.0-75.0 [facility] Comment on above: Performed By: #### A ST, URIC, LDH, ALT #### [facility] [address] [place] [address] Anabella Liz Platelet mean volume (Bld) [Entitic vol] 12.1 fL Normal 9.5-13.5 [facility] Comment on above: Performed By: #### A ST, URIC, LDH, ALT #### [facility] [address] [place] [address] Anabella Pierceen PLT 195 103/ul Normal 150-450 [facility] Comment on above: Performed By: #### A ST, URIC, LDH, ALT #### [facility] [address] [place] [address] Anabellacarissa Pierceen RBC 3.83 106/ul Critically low 4.20-5.40 The [facility] Comment on above: Performed By: #### A ST, URIC, LDH, ALT #### [facility] [address] [address] Anabella Liz WBC 12.9 103/ul Critically high 4.0-11.0 The [facility] Comment on above: Performed By: #### A ST, URIC, LDH, ALT #### [facility] [address] [place] [address] Anabella Liz CREATININE CLEARon 1 CREA CLEARANCE 67.48 ml/min Critically low 75.00-115.00 Th [facility] Comment on above: Performed By: #### A ST, URIC, LDH, ALT #### [facility] [address] [place] [address] Anabella Liz CREA, 24 HR UR 461.40 mg/24 hr Critically low 800.00-1 ,800.0 0 [facility] Comment on above: Performed By: #### A ST, URIC, LDH, ALT #### [facility] [address] [place] [address] Anabella Shalonda Creatinine [Mass/Vol] 0.53 mg/dL Normal 0.52-1.04 [facility] Comment on above: Performed By: #### A ST, URIC, LDH, ALT #### [facility] [address] [place] [address] Anabella Shalonda UR TOT VOL 3000 ml/24 HR Normal [facility] Comment on above: Performed By: #### A ST, URIC, LDH, ALT #### [facility] [address] [place] [address] Anabella Shalonda URINE CREAT 15.38 mg/dL Critically low 20.00-300.00 [facility] Comment on above: Performed By: #### A ST, URIC, LDH, ALT #### [facility] [address] [place] [address] Anabella Shalonda LDHon 11-02-2020 LDH 187 U/L Normal 122-222 [facility] Comment on above: Performed By: #### A ST, URIC, LDH, ALT #### [facility] [address] [place] [address] Anabella Shalonda PROTEIN 24HR URINEon 021 T PROT, 24 HR UR 12.0 mg/24 hr Critically low 42.0-225.0 [facility] Comment on above: Performed By: #### A ST, URIC, LDH, ALT #### [facility] [address] [place] [address] Anabella Shalonda UR PROT 0.4 mg/dL Normal <=12.0 [facility] Comment on above: Performed By: #### A ST, URIC, LDH, ALT #### [facility] [address] [place] [address] Anabella Shalonda UR TOT VOL 3000 ml/24 HR Normal [facility] Comment on above: Performed By: #### A ST, URIC, LDH, ALT #### [facility] [address] [place], [place] [id number] Anabellacarissa Pierceen SGOTon 11-02-2020 AST [Catalytic activity/Vol] 19 U/L Normal 14-36 [facility] Comment on above: Performed By: #### A ST, URIC, LDH, ALT #### [facility] [address] [place] [address] Anabellacarissa Pierceen SGPTon 11-02-2020 ALT [Catalytic activity/Vol] 19 U/L Normal 9-52 [facility] Comment on above: Performed By: #### A ST, URIC, LDH, ALT #### [facility] [address] [place] [address] Anabellacarissa Pierceen TSHon 11-02-2020 TSH 1.341 uIU/mL Normal 0.470-4.680 The [facility] Comment on above: Performed By: #### A ST, URIC, LDH, ALT #### [facility] [address] [place] [address] Anabella Shalonda TSH RANGE SEE BELOW Normal [facility] Comment on above: Result Comment: <0.3 4 UIU/ml HYPERTHYROID 0.34-5.60 UIU/ml EUTHYROID >5.60 UIU/ml HYPOTHYROID Performed By: #### A ST, URIC, LDH, ALT #### [facility] [address] [place] [address] Anabellacarissa Liz URIC ACID SERUMon 11-02-2020 Urate [Mass/Vol] 3.9 mg/dL Normal 2.5-6.2 The [facility] Comment on above: Performed By: #### A ST, URIC, LDH, ALT #### [facility] [address] [place], [place] [id number] Anabella Liz CULTURE URINEon 10-22-2020 CULTURE URINE Culture Observations : No growth. Normal [facility] Comment on above: Performed By: #### A ST, URIC, LDH, ALT #### [facility] [address] [place] [address] Anabella Shalonda UA RANDOM W/MICROSCOPICon BACTERIA TRACE Abnormal NONE SEEN [facility] Comment on above: Performed By: #### A ST, URIC, LDH, ALT #### [facility] [address] [address] Anabella Shalonda Bilirubin Ql (U) Negative Normal NEGATIVE The [facility] Comment on above: Performed By: #### A ST, URIC, LDH, ALT #### [facility] [address] [address] Anabella Shalonda CAST NONE SEEN Normal NONE SEEN [facility] Comment on above: Performed By: #### A ST, URIC, LDH, ALT #### [facility] [address] [address] Anabella Shalonda Clarity (U) CLEAR Normal CLEAR [facility] Comment on above: Performed By: #### A ST, URIC, LDH, ALT #### [facility] [address] [place] [address] Anabella Shalonda Color (U) LT. YELLOW Normal YELLOW [facility] Comment on above: Performed By: #### A ST, URIC, LDH, ALT #### [facility] [address] [place] [address] Anabella Shalonda Crystals LM Nom (Urine sed) NONE SEEN Normal NONE SEEN [facility] Comment on above: Performed By: #### A ST, URIC, LDH, ALT #### [facility] [address] [place] [address] Anabella Shalonda Epithelial cells LM Ql (Urine sed) FEW Abnormal NONE SEEN /RARE [facility] Comment on above: Performed By: #### A ST, URIC, LDH, ALT #### [facility] [address] [place] [address] Anabella Shalonda Glucose Ql (U) Negative Normal NEGATIVE The [facility] Comment on above: Performed By: #### A ST, URIC, LDH, ALT #### [facility] [address] [place] [address] Anabella Shalonda Hemoglobin Ql (U) Negative Normal NEGATIVE The [facility] [place] Comment on above: Performed By: #### A ST, URIC, LDH, ALT #### [facility] [address] [place] [address] Anabella Shalonda Ketones Ql (U) Negative Normal NEGATIVE The [facility] Comment on above: Performed By: #### A ST, URIC, LDH, ALT #### [facility] [address] [address] Anabella Shalonda LEUKOCYTES SMALL Abnormal NEGATIVE [facility] Comment on above: Performed By: #### A ST, URIC, LDH, ALT #### [facility] [address] [id number] Anabella Shalonda MUCOUS NONE SEEN Normal NONE SEEN [facility] Comment on above: Performed By: #### A ST, URIC, LDH, ALT #### [facility] [address] [address] Anabella Shalonda Nitrite Ql (U) Negative Normal NEGATIVE The [facility] Comment on above: Performed By: #### A ST, URIC, LDH, ALT #### [facility] [address] [place] [address] Anabella Shalonda pH (U) 6.0 [pH] Normal 5-9 [facility] Comment on above: Performed By: #### A ST, URIC, LDH, ALT #### [facility] [address] [place] [address] Anabella Shalonda RBC 0-2 Normal 0-2 [facility] Comment on above: Performed By: #### A ST, URIC, LDH, ALT #### [facility] [address] [place] [address] Anabella Shalonda SPEC GRAVITY <=1.005 Abnormal 1.005-<=1.025 The [facility] Comment on above: Performed By: #### A ST, URIC, LDH, ALT #### [facility] [address] [place] [address] Anabella Shalonda UA PROTEIN Negative Normal NEGATIVE/ TRACE [facility] Comment on above: Performed By: #### A ST, URIC, LDH, ALT #### [facility] [address] [place], [place] [address] Anabella Shalonda Urobilinogen Qn (U) 0.2 {Rebecca'U}/dL Normal 0.2 - 1. 0 [facility] Comment on above: Performed By: #### A ST, URIC, LDH, ALT #### [facility] [address] [place], [place] [address] Anabella Liz WBC 5-10 Abnormal NONE SEEN [facility] Comment on above: Performed By: #### A ST, URIC, LDH, ALT #### [facility] [address] [place], [place] [address] Anabella Liz US PREG DATING >14WEEKSon US [...] ANDREW STERLING Date: 2020-10-18 10:41 Normal [facility] CNOVon 02-23-2017 CNOV Office Visit (OBGYCC) ----CHRIST[facility]IBETH ([id number]) 1995 [facility] Department02/23/17 10:50 AM MATTI VENEGAS [facility] During your visit today, we recorded the following information about you: Blood pressure Weight Height 126/76 45.8 kg 1.651 Larisa Venegas MD 02/23/2017 12:04 PM SignedSUBJECTIVE: Lilibeth Christo is a 21 year old female Patient [...] B96.89 (primarydiagnosis)Cou nseled in lengthDeclines referral to Pharmacy Graduate Intern ID for nowWants to come back when she thinks that she has an active infection to confirmthe Dx.2. Genital herpes simplex, unspecified site - ICD9: 054.10, ICD10: A60.00As above.Spent 30 minutes with pt face to face. 20 minutes of that time was spent incounsPerri Gallegos Provider: RADHA MEMBRENO [[id number]]Allergies As of Date: 02/23/2017(Not on File)Date Reviewed: 02/23/2017Reviewed by: Gail Benavidez LPN - Fully AssessedReason for Visit: Consult [502] Cmt: chronic BV and herpes outbreaksPrimary Visit Diagnosis:Bacterial vaginosis [N76.0, B96.89] Other Visit Diagnosis:Genital herpes simplex, unspecified site [A60.00]Problem List As Of Date: 02/23/2017(None)[place] [facility] Number: [id number] Status:Closed by [facility]AS [facility] ----LILIBETH VILLAFUERTE ([id number]) 1995 [facility] Time Provider Department02/23/17 MATTI VENEGAS [facility] During your visit today, we recorded the [...] states she has an appt with herprimary [employer] doctor Sunday and will get her shot then.Allergies As of Date: 02/23/2017(Not on File)Date Reviewed: 02/23/2017Reviewed by: Gail Benavidez LPN - Fully AssessedReason for Visit: Question [1327]Problem List As Of Date: 02/23/2017(None)[place] [facility] Number: [id number] Status:Closed by MATTI VENEGAS MD on 02/26/17 Normal [facility] PROGRESSon 02-23-2017 PROGRESS HNO ID: [id number]: Matti Garciaervice: (none)Author Type: PhysicianType: Progress NotesFiled: 02/23/2017 12:04 [...] N76.0, B96.89(primary diagnosis)Counseled in lengthDeclines referral to Pharmacy Graduate Intern ID for nowWants to come back when she thinks that she has an active infection toconfirm the Dx.2. Genital herpes simplex, unspecified site - ICD9: 054.10, ICD10: A60.00As above.Spent 30 minutes with pt face to face. 20 minutes of that time was spentin Linn Veneags MD Normal [facility] Vital Signs Date Time Vital Sign Value Performing Clinician Rupert pascual 09-05-2023 16:27-0500 Body weight 65.5 kg Jane Gricelda DO Work Phone: [facility] 09-05-2023 16:27-0500 Diastolic blood pressure 60 mm[Hg] Jane Gricelda DO Work Phone: [facility] 09-05-2023 16:27-0500 Systolic blood pressure 102 mm[Hg] Jane Gricelda DO Work Phone: [facility] Encounters Encounter Date Encounter Type Care Provider Facility Start: 11-12-2023 End: 11-12-2023 ambulatory JANE GRICELDA Not Available Start: 11-07-2023 End: 11-07-2023 ambulatory JACOBO REHAN Not Available Start: 11-01-2023 End: 11-01-2023 ambulatory JANE GRICELDA Not Available Start: 10-25-2023 End: 10-25-2023 ambulatory JANE GRICELDA Not Available Start: 10-18-2023 End: 10-18-2023 ambulatory JANE GRICELDA Not Available Start: 10-04-2023 End: 10-04-2023 ambulatory JANE GRICELDA Not Available Start: 09-19-2023 End: 09-19-2023 ambulatory JANE GRICELDA Not Available Start: 09-05-2023 End: 09-05-2023 ambulatory JANE GRICELDA Not Available Start: 09-05-2023 End: 09-05-2023 flow sheet Jane Gricelda DO Work Phone: [facility] Comment on above: Third trimester preg ankur; Genital 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 Start: 08-22-2023 End: 08-22-2023 ambulatory JACOBO VAN Not Available Start: 08-09-2023 End: 08-10-2023 ambulatory JANE R GRICELDA [facility] Start: 07-25-2023 End: 07-25-2023 ambulatory JANE GRICELDA Not Available Start: 06-27-2023 End: 06-27-2023 ambulatory JACOBO REHAN Not Available Start: 04-05-2021 End: 04-07-2021 Evaluation [...] Facility:[facility] Start: 02-21-2021 End: 02-22-[address] NADREW STERLING Facility:[facility] Start: 11-18-2020 End: 11-18-2020 ambulatory RADHA MEMBRENO Facility:[facility] Start: 11-02-2020 End: 11-03-2020 ambulatory RADHA MEMBRENO Facility:[facility] Start: 10-22-2020 End: 10-22-2020 ambulatory RADHA MEMBRENO Facility:[facility] Start: 10-18-2020 End: 10-19-[address] ANDREW STERLING Facility:[facility] Start: 02-23-2017 End: 02-23-2017 Ambulatory MATTI VENEGAS [facility] Procedures Date Procedure Procedure Detail Performing Clinician Start: 09-05-2023 Urnls dip stick/tabl et rgnt non-auto w/o micrscp Jane Madison DO Work Phone: Start: 04-05-2021 Delivery of Products of Conception, External Approach DR ANDREW STERLING Plan of Treatment Date Care Activity Detail Author Start: 09-19-2023 End: 09-19-2023 Patient encounter procedure 09/19/2023 3:30 PM EST Routine [facility] [address] [place] [address] Jane Madison, DO [address] [place] [address] [facility] Start: 03-30-2023 Influenza vaccination Influenza Vacc ine (#1) [facility] Payers Date Payer Category Payer Medicaid [employer] [employer] [employer] [id number] 2022-Present [address] [place] [address] [id number] 2021 Managed Care HMO (unspecified) [employer]ET[employer] AETNA [id number] 2021-Present [address] [place] [address] HMO [id number] 2021 Private Health Insurance [id number] 1993 Unknown [id number] 2.16.840.1.114099.3.579.2.5 1993 Unknown [id number] 2.16.840.1.093728.3.579.2.5 1993 Unknown [id number] 2.16.840.1.607247.3.579.2.5 1993 Unknown [id number] 2.16.840.1.242812.3.579.2.5 1993 Unknown [id number] 2.16.840.1.458007.3.579.2.5 1993 Unknown [id number] 2.16.840.1.028969.3.579.2.5 1993 Unknown [id number] 2.16.840.1.477420.3.579.2.5 1993 Unknown [id number] 2.16.840.1.349302.3.579.2.5 1993 Unknown [id number] 2.16.840.1.754588.3.579.2.5 1993 Unknown [id number] 2.16.840.1.812359.3.579.2.5 1993 Unknown [id number] 2.16.840.1.240578.3.579.2.5 93 1993 Unknown [id number] 2.16.840.1.362756.3.579.2.1 286 1993 Unknown [id number] 2.16.840.1.897628.3.579.2.1 259 1993 Unknown [id number] 2.16.840.1.116761.3.579.2.1 259 1993 Unknown [id number] 2.16.840.1.687621.3.579.2.1 259 1993 Unknown [id number] 2.16.840.1.105674.3.579.2.1 259 1993 Unknown [id number] 2.16.840.1.716723.3.579.2.1 259 1993 Unknown [id number] 2.16.840.1.713511.3.579.2.1 259 1993 Unknown [id number] 2.16.840.1.551571.3.579.2.1 259 1993 Unknown [id number] 2.16.840.1.898121.3.579.2.1 259 1993 Unknown [id number] 2.16.840.1.430062.3.579.2.1 259 1993 Unknown [id number] 2.16.840.1.684930.3.579.2.1 259 1993 Unknown [id number] 2.16.840.1.932107.3.579.2.1 259 1959 Medicaid [id number] 1959 Unknown [id number] 1961 Unknown [id number] Social History Date Type Detail Facility Tobacco smoking stat [facility] Tobacco smoking consumption unknown [facility] Start: 02-20-2023 [facility] Start: 1995 Sex Assigned At Female [facility] Start: 04-25-2023 Gender identity Identifies as female gender (finding) [facility] Start: 04-25-2023 Sexual orientation Heterosexual (ramya slava) [facility] History of Present illness Narrative [...] section and content) DATE CREATED AUTHOR 01/23/2018 [facility] DATE CREATED AUTHOR AUTHOR'S ORGANIZ ATION 04/16/2021 [facility] DATE CREATED AUTHOR AUTHOR'S ORGANIZ ATION 08/12/2023 [facility] DATE CREATED AUTHOR AUTHOR'S ORGANIZ ATION 11/12/2023 [facility] EPIC Reason for Visit (unrecogniz ed section and content) Reason Comments Routine Visit Care Teams (unrecognized sec tion and content) Signal Intelligence/Electronic Warfare Relationship Specialty Start Date End Date Vincent Min MD [address] [place] [address] PCP - General Family Medicine 08/22/23 FOR [...] BE BASED ON THE PRIMARY CLINICAL RECORDS. [facility]. provides no warranty or guarantee of the accuracy or completeness of information in this document.
[2023-11-14 05:53] LABS: Bilirubin Urine NEGATIVE (NEGATIVE); Blood Urine SMALL (NEGATIVE); Clarity Urine CLEAR (CLEAR); Color Urine LT. YELLOW (YELLOW); Glucose Urine UA NEGATIVE (NEGATIVE); Ketones Urine NEGATIVE (NEGATIVE); Leukocyte Esterase Urine NEGATIVE (NEGATIVE); Nitrite Urine NEGATIVE (NEGATIVE); Protein Urine NEGATIVE (NEG/TRACE); Urobilinogen Urine 0.2 EU/dL (0.2-1.0)
[2023-11-14 05:55] LABS: Urine Microscopic Indicated YES
[2023-11-14 05:55] LABS: Amnisure POSITIVE (NEGATIVE)
[2023-11-14 06:01] LABS: Bacteria Urine NONE SEEN #/HPF (NONE SEEN); Mucus Urine NONE SEEN (NONE SEEN); RBC Urine 0-2 #/HPF (0-2); Squamous Epithelial Cell Urine FEW #/LPF (NONE/RARE); Transitional Epi Cells Urine RARE #/LPF (NONE SEEN); WBC Urine 0-2 #/HPF (NONE SEEN)
[2023-11-14 06:02] LABS: Cast Seen? NONE SEEN #/LPF (NONE SEEN); Crystals Seen? None Seen #/HPF (None Seen); Urine Culture Indicated NO
[2023-11-14] MEDS: 0.9 % SODIUM CHLORIDE 1,000 ML 125 ML IV (07:00)
[2023-11-14] MEDS: OXYTOCIN/0.9 % SODIUM CHLORIDE 10 UNITS/500 ML PLAST..BAG 6 UNIT IV (07:27)
[2023-11-14 07:32] LABS: Hematocrit 36.9 % (36.0-48.0); Hemoglobin 12.4 g/dL (12.0-16.0); Mean Corpuscular HGB Conc 33.6 g/dL (29.9-35.2); Mean Corpuscular Volume 95.3 fL (81.0-99.0); Mean Platelet Volume 14.2 fL (9.5-13.5); Platelet Count 111 10^3/uL (150-450); Red Blood Count 3.87 10^6/uL (4.20-5.40); Red Cell Distribution Width 13.8 % (11.0-15.0); White Blood Count 13.1 10^3/uL (4.0-11.0)
[2023-11-14] MEDS: ROPIVACAINE HCL/PF 400 MG/200 ML PREMIX 6 MG EPIDURAL (09:22)
[2023-11-14] MEDS: 0.9 % SODIUM CHLORIDE 1,000 ML 1000 ML IV (09:22)
[2023-11-14] MEDS: FENTANYL CITRATE/PF 100 MCG/2 ML VIAL EPIDURAL (09:23)
[2023-11-14] MEDS: ROPIVACAINE HCL 0.2% PF 40 MG/20 ML VIAL EPIDURAL (09:37)
[2023-11-14] MEDS: OXYTOCIN/0.9 % SODIUM CHLORIDE 20 UNITS/1,000 ML PLAST..BAG 125 UNIT IV (12:30)
--- NOTE | 2023-11-14 12:37 | PM.OBPRCVD ---
Procedure Intrapartal events: None Induction method: none Delivery augmentation: pitocin Delivery monitor: external FHT and external uterine Route of delivery: Episiotomy Description: none L&D Laceration Description: perineal - 1st degree Delivery repair: Vicryl Estimated blood loss (mL): 300 Anesthesia type: Epidural Disposition: floor Gender: female presentation: vertex Placental delivery description: Spontaneous cord description: 3 Vessels and Nuchal Cord (times 1)
[2023-11-14] MEDS: IBUPROFEN 600 MG TABLET PO ×2 (14:26→21:42)
[2023-11-14] MEDS: BENZOCAINE/MENTHOL 85 GRAM SPRAY BOTTLE 1 APPLIC TOPICAL (16:19)
--- NOTE | 2023-11-14 16:56 | PC.NURSE ---
1515: epidural catheter discontinued with tip intact. bandaid to site- patient tolerated well
[2023-11-14 18:41] LABS: Amphetamine Screen Urine NEGATIVE (NEGATIVE); Barbiturates Screen Urine NEGATIVE (NEGATIVE); Benzodiazepines Screen Urine NEGATIVE (NEGATIVE); Buprenorphine Screen Urine NEGATIVE (NEGATIVE); Cannabinoid Screen Urine NEGATIVE (NEGATIVE); Cocaine Screen Urine NEGATIVE (NEGATIVE); Methadone Screen Urine NEGATIVE (NEGATIVE); Methamphetamines Screen Urine NEGATIVE (NEGATIVE); Opiate Screen Urine NEGATIVE (NEGATIVE); Oxycodone Screen Urine NEGATIVE (NEGATIVE); Phencyclidine Screen Urine NEGATIVE (NEGATIVE); Tricyclic Antidepressant Urine NEGATIVE (NEGATIVE)
[2023-11-15] VITALS: TEMP 36.4
[2023-11-15 00:02] VITALS: BP 128/58; PULSE 55
[2023-11-15] MEDS: ACETAMINOPHEN 325 MG TABLET 650 MG PO (00:07)
[2023-11-15] MEDS: IBUPROFEN 600 MG TABLET PO ×3 (05:10→17:23)
[2023-11-15 06:25] LABS: Basophils Absolute Auto 0.1 10^3/uL (0.0-0.1); Basophils Percent Auto 0.4 % (0.2-2.0); Eosinophils Absolute Auto 0.2 10^3/uL (0.0-0.7); Eosinophils Percent Auto 1.5 % (0.9-7.0); Hematocrit 31.8 % (36.0-48.0); Hemoglobin 10.4 g/dL (12.0-16.0); Immature Granulocytes Abs Auto 0.08 10^3/uL (0.00-0.03); Immature Granulocytes Pct Auto 0.6 % (0.0-0.5); Lymphocytes Absolute Auto 2.7 10^3/uL (1.2-3.8); Lymphocytes Percent Auto 18.9 % (20.5-60.0); Mean Corpuscular HGB Conc 32.7 g/dL (29.9-35.2); Mean Corpuscular Hemoglobin 31.6 pg (26.7-34.0); Mean Corpuscular Volume 96.7 fL (81.0-99.0); Mean Platelet Volume 13.5 fL (9.5-13.5); Monocytes Absolute Auto 0.7 10^3/uL (0.3-0.8); Monocytes Percent Auto 4.7 % (1.7-12.0); Neutrophils Absolute Auto 10.7 10^3/uL (1.4-6.5); Neutrophils Percent Auto 73.9 % (43.0-75.0); Platelet Count 96 10^3/uL (150-450); Red Blood Count 3.29 10^6/uL (4.20-5.40); Red Cell Distribution Width 14.1 % (11.0-15.0); White Blood Count 14.4 10^3/uL (4.0-11.0)
--- NOTE | 2023-11-15 08:22 | PM.OBPN ---
OB - PN: Subj Subjective Patient comments: no complaints [place] status: doing well feeding status: exclusively Exam Constitutional Vital Signs, click to edit/add: Last Vital Signs Temp 97.6 F 11/15/23 00:00 Pulse 55 L 11/15/23 00:02 Resp 16 11/15/23 00:00 BP 128/58 11/15/23 00:02 O2 Del Method Room Air 11/15/23 00:00 Documenting provider has reviewed patient's vital signs: yes Common normals: no apparent distress General appearance: cooperative Orientation/consciousness: Yes awake, Yes oriented to person, Yes oriented to place and Yes oriented to time HENMT Common normals: normocephalic Eye Common normals: EOMs intact bilaterally General eye: normal appearance of both eyes Neck & C-Spine Common normals: full ROM Lymph Lymphatic: no lymphadenopathy noted Chest Common normals: inspection of chest normal Respiratory Common normals: normal respiratory effort Effort & inspection: able to speak in complete sentences Auscultation: clear to auscultation bilaterally Cardio Common normals: regular rate and regular rhythm Rate: regular rate Rhythm: regular rhythm GI Common normals: Normal to inspection, nondistended, normoactive bowel sounds present Inspection: normal to inspection Auscultation: normoactive bowel sounds Palpation: soft Common normals: no CVA tenderness Back & Pelvis Common normals: no CVA tenderness Thoracic spine/upper back: normal to inspection Extremity Common normals: normal to inspection General: normal exam except as noted Neuro Common normals: oriented x3 Sensorium/orientation: awake, alert, oriented to person, oriented to place and oriented to time Psych Appearance: well kempt Attitude: calm Activity/motor behavior: appropriate eye contact Results Labs Labs: Short CBC 11/15/23 Range/Units 06:14 WBC 14.4 H (4.0-11.0) 10^3/uL Hgb 10.4 L (12.0-16.0) g/dL Hct 31.8 L (36.0-48.0) % Plt Count 96 L (150-450) 10^3/uL OB - PN: A/P Plan - Vaginal Delivery day: 1 Plan: discharge home Time Spent with Patient Time: Total time spent is greater than 50% in coordination of care (as documented) at patient's floor/unit and/or counseling patient: Total time spent with greater than 50% in coordination of care (as documented) at patient's floor/unit and/or counseling patient: less than 15 minutes
[2023-11-15] MEDS: DOCUSATE SODIUM 100 MG CAPSULE PO (10:53)
[2023-11-15 10:55] VITALS: BP 134/75; PULSE 112; TEMP 36.3
[2023-11-15 19:47] VITALS: BP 133/79; PULSE 79; TEMP 36.6
== END 2023-11-15 20:00 | disposition home or self-care (01) | DRG 807 ==
PROVIDERS: Admitting Provider Obstetrics & Gynecology; Visit Provider Obstetrics & Gynecology
DX: O69.81X0 Labor and delivery complicated by cord around neck, without compression, not applicable or unspecified (principal); Z37.0 Single live birth; O70.0 First degree perineal laceration during delivery; Z3A.40 40 weeks gestation of pregnancy
CPT/HCPCS: 36415; 51701; 59025; 59050; 59410; 80307; 81001; 84112; 85025; 85027; 86850; 86900; 86901; 96365; 96366; 96376

== ENCOUNTER 2025-02-18 19:41 | Outpatient (REF) | payer OTHER, SELFPAY ==
--- OUTSIDE RECORDS SUMMARY | 2025-02-18 19:46 | XMS_ITS | CCD ---
Author Organization [facility] Care Team Providers Care Residential Real Estate Assistant Name Role Phone RUBIMATTI Unavailable Unavailable RADHA MEMBRENO Unavailable Unavailable HALLIE, [...] PAKO, DR VINCENT Juárez Primary Care Unavailable KARASIEmil, DR DOLAN Admitting Unavailable KARASIEmil, DR DOLAN Consulting Unavailable KARELMA, DR DOLAN Attending Unavailable ZIEBER, DR ANDREW Lance Consulting Unavailable GRICELDA, DR LARA Consulting Unavailable GRICELDA, DR LARA Attending Unavailable GRICELDA, DR LARA Admitting Unavailable MISC, DR MISHRA Primary Care Unavailable RADHA MEMBRENO Attending Unavailable RADHA MEMBRENO Admitting Unavailable NADERENatalio, DR VINCENT Juárez Primary Care Unavailable GRICELDA, [...] Unavailable Vincent Min MD Primary Care Provider [phone] GRICELDA, JANE Attending Unavailable SANDHYA VAN Attending Unavailable GRICELDA, JANE Attending Unavailable GRICELDA, JANE Attending Unavailable GRICELDA, JANE Attending Unavailable GRICELDA, JANE Attending Unavailable SANDHYA VAN Attending Unavailable GRICELDA, JANE Attending Unavailable GRICELDA, JANE Attending Unavailable REHANSANDHYA HORNER Attending Unavailable GRICELDA, JANE Attending Unavailable GRICELDA, JANE Attending Unavailable Allergies Allergy Classification Reported Allergen(s) Allergy Type Date of Onset Reaction(s) Facility (1 source) nabumetone Drug Allergy [facility] (1 source) oxyCODONE Drug Allergy [facility] Medications Current Medications Medication Drug Class(es) Dates Sig (Normalized) Sig (Original) aspirin 81 mg delayed release oral tablet (5 sources) Platelet Aggregation Inhibitor, Nonsteroidal Anti-inflammatory Drug take 1 tablet by mouth in the morning aspirin 81 MG EC tablet Take 81 mg by mouth in the morning. Active cholecalciferol 0.01 mg/ml oral solution (3 sources) Vitamin D Start: 11-19-2023 D-Vi-Jacqui 10 MCG/ML liquid 11/19/2023 Active docusate sodium 100 mg oral capsule (3 sources) take 1 capsule by mouth in the morning Docusate Sodium (DSS) 100 MG capsule Take 100 mg by mouth in the morning and 100 mg in the evening. Active fluocinonide 0.5 mg/ml topical cream (3 sources) Corticosteroid fluocinonide (Lidex) 0.05 % cream Apply 1 application topically Daily as needed Active hydrocortisone acetate 10 mg/ml / pramoxine hydrochloride 10 mg/ml rectal foam (3 sources) Corticosteroid Start: 01-10-2024 Hydrocort-Pramoxin e, Perianal, (Proctofoam HC) 1-1 % foam Indications: Hemorrhoids, unspecified hemorrhoid type Apply 0.5 g topically every 3rd (third) day if needed (for hemorrhoid pain) 10 g 01/10/2024 Active ibuprofen 800 mg oral tablet (3 sources) Nonsteroidal Anti-inflammatory Drug Start: 11-16-2023 take 1 tablet by mouth every eight hours ibuprofen 800 MG tablet Take 800 mg by mouth every 8 (eight) hours 11/16/2023 Active norethindrone 0.35 mg oral tablet (3 sources) Start: 01-26-2025 End: 02-23-2025 take 1 tablet by mouth once daily, then take 1 tablet by mouth once daily norethindrone (Micronor) 0.35 MG tablet Indications: Encounter for other contraceptive management Take 1 tablet (0.35 mg) by mouth Daily for 28 days Take 1 tablet by mouth daily 28 tablet 11 01/26/2025 02/23/2025 Active omeprazole 20 mg delayed release oral capsule (5 sources) Proton Pump Inhibitor Start: 05-28-2023 End: 05-27-2024 take 1 capsule by mouth once before mealtime omeprazole (PriLOSEC) [address] capsule Indications: Heartburn during in second trimester ([facility]) Take 1 capsule (20 mg) by mouth in the morning. Take before meals. Do not crush or chew. . 30 capsule 11 05/28/2023 Active MV-Min-Fe Fum-FA-DHA ( 1 PO) (5 sources) MV-Min- Fe Fum-FA-DHA ( 1 PO) Take by mouth. Active MV-Min- Fe Fum-FA-DHA ( 1 PO) Take by mouth. 0 Active sulfacetamide sodium 100 mg/ml topical cream (3 sources) Sulfonamide Antibacterial Sulfacetamide Sodium 10 % cream Apply topically Active tretinoin 0.25 mg/ml topical cream (3 sources) Retinoid tretinoin (Retin -A) 0.025 % cream Apply topically Daily as needed Active valACYclovir 500 mg oral tablet (2 sources) Herpesvirus Nucleoside Analog DNA Polymerase Inhibitor, Herpes Simplex Virus Nucleoside Analog DNA Polymerase Inhibitor, Herpes Zoster Virus Nucleoside Analog DNA Polymerase Inhibitor Start: 09-05-19 End: 11-04-19 take 1 tablet by mouth in the [...] applicable or unspecified; Translations: [MAT CARE OTH UT FTL GRTH 3RD TM UNS] Onset: 02-25-2021 [...] OTHER SERUM ENZYMES] Onset: 04-13-2021 Episodic Other screening for suspected conditions (not [...] REPROD/OB HX UNS TM] Onset: 11-02-2020 Episodic Other complications of (3 sources) Heartburn; Translations: [Other specified related conditions, second trimester] Onset: 10-16-2023 10-16-2023 Episodic Other and delivery including normal (15 sources) Single live ; Translations: [Encounter for supervision of normal , unspecified, third trimester] Onset: 10-22-2020 Episodic Short gestation; low weight; and growth retardation (3 sources) Urxte-xhp-ewvah baby; Translations: [ small for gestational age, unspecified weight] Onset: 10-04-2023 10-04-2023 Episodic Results Test Name Value Interpretation Reference Range Facility Urinalysis macro (dipstick) panel (U)Ordered By: Donna Ron on 09-05-2023 Bilirubin, UA Negative Negative - 4(70) +++ mg/dL [facility] Blood, UA Negative Negative - 50 Kendell/mcL [facility] Clarity, UA Clear [facility] Color, UA Yellow [facility] Glucose, UA Negative Negative - 1999(110) ++++ mg/dL [facility] Interpretation and review of laboratory results Normal [facility] Ketones, UA Negative Negative - 160(16) ++++ mg/dL [facility] Leukocytes, UA Negative Negative - 500+++ Laureen/mcL [facility] Nitrite, UA Negative Negative - Positive [facility] pH, UA 6.0 5 - 9 [facility] Protein, UA Negative Negative - 1999(20) ++++ mg/dL [facility] Spec Grav, UA 1.010 1 - 1.03 [facility] Urobilinogen, UA 0.2 0.2 - 12 mg/dL [facility] AND AUTO DIFFon 08-09-19 24 ABSOLUTE BASOPHIL 0.0 X10E9/L Normal 0.0-0.2 [facility] Comment on above: Performed By: #### 1 504-0, CBCA #### [facility] ([id number]) [address], [address] [place] [address] ABSOLUTE NEUTROPHIL 11.6 X10E9/L High 1.5-6.6 [facility] Comment on above: Performed By: #### 1 504-0, CBCA #### [facility] ([id number]) [address], [address] [place] [address] Basophils/100 WBC (Bld) 0.2 % Normal [facility] Comment on above: Performed By: #### 1 504-0, CBCA #### [facility] ([id number]) [address], [address] [place] [address] Eosinophils (Bld) [#/Vol] 0.2 10*3/uL Normal 0.0-0.4 [facility] Comment on above: Performed By: #### 1 504-0, CBCA #### [facility] ([id number]) [address], [address] [place] [address] Eosinophils/100 WBC (Bld) 1.1 % Normal [facility] Comment on above: Performed By: #### 1 504-0, CBCA #### [facility] ([id number]) [address], [address] [place] [address] Erythrocyte distribution width (RBC) [Ratio] 14.6 % Normal 11.5-15.0 [facility] Comment on above: Performed By: #### 1 504-0, CBCA #### [facility] ([id number]) [address], [address] [place] [address] Hematocrit (Bld) [Volume fraction] 37.0 % Normal 35-47 [facility] Comment on above: Performed By: #### 1 504-0, CBCA #### [facility] ([id number]) [address], [address] [place] [address] Hemoglobin (Bld) [Mass/Vol] 12.3 g/dL Normal 11.7-15.5 [facility] Comment on above: Performed By: #### 1 504-0, CBCA #### [facility] ([id number]) [address], [address] [place] [address] Lymphocytes (Bld) [#/Vol] 2.1 10*3/uL Normal 1.0-3.5 [facility] Comment on above: Performed By: #### 1 504-0, CBCA #### [facility] ([id number]) [address], [address] [place] [address] Lymphocytes/100 WBC (Bld) 14.5 % Normal [facility] Comment on above: Performed By: #### 1 504-0, CBCA #### [facility] ([id number]) [address], [address] [place] [address] MCH (RBC) [Entitic mass] 31.5 pg Normal 27-34 [facility] Comment on above: Performed By: #### 1 504-0, CBCA #### [facility] ([id number]) [address], [address] [place] [address] MCHC (RBC) [Mass/Vol] 33.1 g/dL Normal 32-36 [facility] Comment on above: Performed By: #### 1 504-0, CBCA #### [facility] ([id number]) [address], [address] [place] [address] MCV (RBC) [Entitic vol] 95 fL Normal 80-100 [facility] Comment on above: Performed By: #### 1 504-0, CBCA #### [facility] ([id number]) [address], [address] [place] [address] Monocytes (Bld) [#/Vol] 0.4 10*3/uL Normal 0-0.9 [facility] Comment on above: Performed By: #### 1 504-0, CBCA #### [facility] ([id number]) [address], [facility] [address] [place] [address] Monocytes/100 WBC (Bld) 2.7 % Normal [facility] Comment on above: Performed By: #### 1 504-0, CBCA #### [facility] ([id number]) [address], [address] [place] [address] Neutrophils/100 WBC (Bld) 81.5 % Normal [facility] Comment on above: Performed By: #### 1 504-0, CBCA #### [facility] ([id number]) [address], [address] [place] [address] Platelet mean volume (Bld) [Entitic vol] 10.6 fL Normal 7-12 [facility] Comment on above: Performed By: #### 1 504-0, CBCA #### [facility] ([id number]) [address], [address] [place] [address] Platelets (Bld) [#/Vol] 199 10*3/uL Normal 150-450 [facility] Comment on above: Performed By: #### 1 504-0, CBCA #### [facility] ([id number]) [address], [address] [place] [address] RBC COUNT 3.89 X10E12/L Normal 3.80-5.20 [facility] Comment on above: Performed By: #### 1 504-0, CBCA #### [facility] ([id number]) [address], [address] [place] [address] WBC (Bld) [#/Vol] 14.2 10*3/uL High 4.0-11.0 [facility] Comment on above: Performed By: #### 1 504-0, CBCA #### [facility] ([id number]) [address] [place] [address] Glucose 1 Hr post 50 g gluco se PO [Mass/Vol]on 08-09-2023 GLU 1H POST 50G LOAD 106 mg/dL Normal 65-139 [facility] Comment on above: Performed By: #### 1 504-0, CBCA #### [facility] ([id number]) [address], [address] [place] [address] CBC W MANUAL DIFFon 04-06-20 21 ATYPICAL LYMPH # Normal [facility] Comment on above: Performed By: #### A ST, URIC, LDH, ALT #### [facility] [address] [place] [address] Anabella Shalonda ATYPICAL LYMPH % Normal [facility] Comment on above: Performed By: #### A ST, URIC, LDH, ALT #### [facility] [address] [address] Anabella Shalonda BAND # Normal 0.0-0.3 [facility] Comment on above: Performed By: #### A ST, URIC, LDH, ALT #### [facility] [address] [place] [address] Anabella Shalonda BAND % Normal 0-5 [facility] Comment on above: Performed By: #### A ST, URIC, LDH, ALT #### [facility] [address] [address] Anabella Shalonda BASOM # 0.00 103/ul Normal 0.00-0.10 [facility] Comment on above: Performed By: #### A ST, URIC, LDH, ALT #### [facility] [address] [place] [address] Anabella Shalonda BASOM % 0.0 % Critically low 0.2-2.0 [facility] Comment on above: Performed By: #### A ST, URIC, LDH, ALT #### [facility] [address] [place] [address] Anabella Shalonda BLAST # Normal [facility] Comment on above: Performed By: #### A ST, URIC, LDH, ALT #### [facility] [address] [address] Anabella Shalonda BLAST % Normal [facility] Comment on above: Performed By: #### A ST, URIC, LDH, ALT #### [facility] [address] [place] [address] Anabella Shalonda CORRECTED WBC Normal 4.0-11.0 [facility] Comment on above: Performed By: #### A ST, URIC, LDH, ALT #### [facility] [address] [place] [address] Anabella Shalonda EOS # 0.15 103/ul Normal 0.00-0.70 [facility] Comment on above: Performed By: #### A ST, URIC, LDH, ALT #### [facility] [address] [place] [address] Anabella Shalonda EOS% 1.0 % Normal 0.9-7.0 [facility] Comment on above: Performed By: #### A ST, URIC, LDH, ALT #### [facility] [address] [place] [address] Anabella Shalonda HCT 32.4 % Critically low 36.0-48.0 [facility] Comment on above: Performed By: #### A ST, URIC, LDH, ALT #### [facility] [address] [place] [address] Anabella Shalonda HGB 10.5 g/dl Critically low 12.0-16.0 [facility] Comment on above: Performed By: #### A ST, URIC, LDH, ALT #### [facility] [address] [place] [address] Anabella Shalonda LYMPHM # 2.68 103/ul Normal 1.20-3.80 [facility] Comment on above: Performed By: #### A ST, URIC, LDH, ALT #### [facility] [address] [place] [address] Anabella Shalonda LYMPHM% 18.0 % Critically low 20.5-60.0 [facility] Comment on above: Performed By: #### A ST, URIC, LDH, ALT #### [facility] [address] [place] [address] Anabella Shalonda MCH 30.8 pg Normal 26.7-34.0 [facility] Comment on above: Performed By: #### A ST, URIC, LDH, ALT #### [facility] [address] [place] [address] Anabella Shalonda MCHC 32.4 g/dl Normal 29.9-35.2 [facility] Comment on above: Performed By: #### A ST, URIC, LDH, ALT #### [facility] [address] [place] [address] Anabella Shalonda MCV 95.0 fL Normal 81.0-99.0 [facility] Comment on above: Performed By: #### A ST, URIC, LDH, ALT #### [facility] [address] [place] [address] Anabella Shalonda METAMYELOCYTE # Normal [facility] Comment on above: Performed By: #### A ST, URIC, LDH, ALT #### [facility] [address] [place] [address] Anabella Shalonda METAMYELOCYTE % Normal [facility] Comment on above: Performed By: #### A ST, URIC, LDH, ALT #### [facility] [address] [place] [address] Anabella Shalonda MONOM# 0.30 103/ul Normal 0.30-0.80 [facility] Comment on above: Performed By: #### A ST, URIC, LDH, ALT #### [facility] [address] [place] [address] Anabella Shalonda MONOM% 2.0 % Normal 1.7-12.0 [facility] Comment on above: Performed By: #### A ST, URIC, LDH, ALT #### [facility] [address] [address] Anabella Liz MPV 13.5 fL Normal 9.5-13.5 [facility] Comment on above: Performed By: #### A ST, URIC, LDH, ALT #### [facility] [address] [place] [address] Anabellacarissa Liz MYELOCYTE # Normal [facility] Comment on above: Performed By: #### A ST, URIC, LDH, ALT #### [facility] [address] [address] Anabella Shalonda MYELOCYTE % Normal [facility] Comment on above: Performed By: #### A ST, URIC, LDH, ALT #### [facility] [address] [place] [address] Anabella Shalonda NRBC Normal [facility] Comment on above: Performed By: #### A ST, URIC, LDH, ALT #### [facility] [address] [address] Anabella Pierceen PLT 120 103/ul Critically low 150-450 [facility] Comment on above: Performed By: #### A ST, URIC, LDH, ALT #### [facility] [address] [address] Anabella Liz RBC 3.41 106/ul Critically low 4.20-5.40 [facility] Comment on above: Performed By: #### A ST, URIC, LDH, ALT #### [facility] [address] [address] Anabella Liz RDW 15.3 % Critically high 11.0-15.0 [facility] Comment on above: Performed By: #### A ST, URIC, LDH, ALT #### [facility] [address] [place] [address] Anabellacarissa Pierceen SEG # 11.77 103/ul Critically high 1.40-6.50 [facility] Comment on above: Performed By: #### A ST, URIC, LDH, ALT #### [facility] [address] [place] [address] Anabella Shalonda SEG % 79.0 % Critically high 43.0-75.0 [facility] Comment on above: Performed By: #### A ST, URIC, LDH, ALT #### [facility] [address] [id number] Anabella Shalonda WBC 14.9 103/ul Critically high 4.0-11.[address] [facility] Comment on above: Performed By: #### A ST, URIC, LDH, ALT #### [facility] [address] [place] [address] Anabella Shalonda CBC AUTO DIFFon 04-05-2021 BASO # 0.1 103/ul Normal 0.0-0.1 [facility] Comment on above: Performed By: #### A ST, URIC, LDH, ALT #### [facility] [address] [place] [address] Anabella Shalonda Basophils/100 WBC (Bld) 0.4 % Normal 0.2-2.0 [facility] Comment on above: Performed By: #### A ST, URIC, LDH, ALT #### [facility] [address] [place] [address] Anabella Shalonda EO # 0.1 103/ul Normal 0.0-0.7 [facility] Comment on above: Performed By: #### A ST, URIC, LDH, ALT #### [facility] [address] [place], [place] [address] Anabellacarissa Liz Eosinophils/100 WBC (Bld) 0.7 % Critically low 0.9-7.0 [facility] Comment on above: Performed By: #### A ST, URIC, LDH, ALT #### [facility] [address] [place] [address] Anabella Shalonda Erythrocyte distribution width (RBC) [Ratio] 15.2 % Critically high 11.0-15.0 [facility] Comment on above: Performed By: #### A ST, URIC, LDH, ALT #### [facility] [address] [place] [address] Anabella Hsalonda Hematocrit (Bld) [Volume fraction] 35.9 % Critically low 36.0-48.0 [facility] Comment on above: Performed By: #### A ST, URIC, LDH, ALT #### [facility] [address] [place] [address] Anabella Shalonda Hemoglobin (Bld) [Mass/Vol] 11.7 g/dL Critically low 12.0-16.0 [facility] Comment on above: Performed By: #### A ST, URIC, LDH, ALT #### [facility] [address] [place] [address] Anabella Shalonda IG # 0.09 10e3/ul Critically high 0.00-0.03 [facility] Comment on above: Performed By: #### A ST, URIC, LDH, ALT #### [facility] [address] [place] [address] Anabella Shalonda IG % 0.7 % Critically high 0.0-0.5 [facility] Comment on above: Performed By: #### A ST, URIC, LDH, ALT #### [facility] [address] [place] [address] Anabella Shalonda LYMPH # 1.9 103/ul Normal 1.2-3.8 [facility] Comment on above: Performed By: #### A ST, URIC, LDH, ALT #### [facility] [address] [place] [address] Anabella Shalonda Lymphocytes/100 WBC (Bld) 14.5 % Critically low 20.5-60.0 [facility] Comment on above: Performed By: #### A ST, URIC, LDH, ALT #### [facility] [address] [place] [address] Anabella Shalonda MANUAL DIFF REQ NO Normal [facility] Comment on above: Performed By: #### A ST, URIC, LDH, ALT #### [facility] [address] [place] [address] Anabella Shalonda MCH (RBC) [Entitic mass] 30.2 pg Normal 26.7-34.0 [facility] Comment on above: Performed By: #### A ST, URIC, LDH, ALT #### [facility] [address] [address] Anabella Liz MCHC (RBC) [Mass/Vol] 32.6 g/dL Normal 29.9-35.2 [facility] Comment on above: Performed By: #### A ST, URIC, LDH, ALT #### [facility] [address] [place] [address] Anabella Liz MCV (RBC) [Entitic vol] 92.5 fL Normal 81.0-99.0 [facility] Comment on above: Performed By: #### A ST, URIC, LDH, ALT #### [facility] [address] [place] [address] Anabellacarissa Liz MONO # 0.7 103/ul Normal 0.3-0.8 [facility] Comment on above: Performed By: #### A ST, URIC, LDH, ALT #### [facility] [address] [place] [address] Anabella Liz Monocytes/100 WBC (Bld) 5.1 % Normal 1.7-12.0 [facility] Comment on above: Performed By: #### A ST, URIC, LDH, ALT #### [facility] [address] [place] [address] Anabella Liz NEUT # 10.4 103/ul Critically high 1.4-6.[address] [facility] Comment on above: Performed By: #### A ST, URIC, LDH, ALT #### [facility] [address] [place] [address] Anabella Liz Neutrophils/100 WBC (Bld) 78.6 % Critically high 43.0-75.0 [facility] Comment on above: Performed By: #### A ST, URIC, LDH, ALT #### [facility] [address] [place], [place] [id number] Anabella Liz Platelet mean volume (Bld) [Entitic vol] 13.3 fL Normal 9.5-13.5 [facility] Comment on above: Performed By: #### A ST, URIC, LDH, ALT #### [facility] [address] [place] [address] Anabellacarissa Pierceen PLT 142 103/ul Critically low 150-450 [facility] Comment on above: Performed By: #### A ST, URIC, LDH, ALT #### [facility] [address] [place] [address] Anabella Liz RBC 3.88 106/ul Critically low 4.20-5.40 [facility] Comment on above: Performed By: #### A ST, URIC, LDH, ALT #### [facility] [address] [place] [address] Anabella Liz WBC 13.2 103/ul Critically high 4.0-11.0 [facility] Comment on above: Performed By: #### A ST, URIC, LDH, ALT #### [facility] [address] [place] [address] Anabellacarissa Liz DRUG SCREEN RAPID (URINE)on 04-05-2021 AMP Negative Normal NEGATIVE [facility] Comment on above: Performed By: #### D RUGRPD #### [facility] [address] [place] [address] Anabella Shalonda BAR Negative Normal NEGATIVE [facility] Comment on above: Performed By: #### D RUGRPD #### [facility] [address] [place] [address] Anabella Shalonda BUP Negative Normal NEGATIVE [facility] Comment on above: Performed By: #### D RUGRPD #### [facility] [address] [place] [address] Anabella Shalonda BZO Negative Normal NEGATIVE [facility] Comment on above: Performed By: #### D RUGRPD #### [facility] [address] [place] [address] Anabella Shalonda JP Negative Normal NEGATIVE [facility] Comment on above: Performed By: #### D RUGRPD #### [facility] [address] [place] [address] Anabella Shalonda CUT-OFFS SEE BELOW Normal [facility] Comment on above: Result Comment: AMP [...] ng/mL Performed By: #### D RUGRPD #### [facility] [address] [place] [address] DRUG CUT HEADER DRUG CLASS TEST SYSTEM CUT-OFF CONCENTRATIONS ARE FOLLOWS: Normal [facility] Comment on above: Performed By: #### D RUGRPD #### [facility] [address] [place] [address] Anabella Shalonda mAMP Negative Normal NEGATIVE [facility] Comment on above: Performed By: #### D RUGRPD #### [facility] [address] [place] [address] Anabella Shalonda MTD Negative Normal NEGATIVE [facility] Comment on above: Performed By: #### D RUGRPD #### [facility] [address] [place] [address] [facility] Normal NEGATIVE [facility] Comment on above: Performed By: #### D RUGRPD #### [facility] [address] [place] [address] Anabella Shalonda OXY Negative Normal NEGATIVE [facility] Comment on above: Performed By: #### D RUGRPD #### [facility] [address] [place] [address] Anabella Shalonda PCP Negative Normal NEGATIVE [facility] Comment on above: Performed By: #### D RUGRPD #### [facility] [address] [place] [address] PPX Negative Normal NEGATIVE [facility] Comment on above: Performed By: #### D RUGRPD #### [facility] [address] [place] [address] Anabella Shalonda TCA Negative Normal NEGATIVE [facility] Comment on above: Performed By: #### D RUGRPD #### [facility] [address], [place] [address] Anabella Shalonda THC Negative Normal NEGATIVE [facility] Comment on above: Performed By: #### D RUGRPD #### [facility] [address] [place], [place] [address] Anabella Shalonda LDHon 04-05-2021 LDH 473 U/L Critically high 122-222 [facility] Comment on above: Performed By: #### A LT, LDH, AST, URIC #### [facility] [address] [place], [place] [address] Anabella Shalonda SGOTon 04-05-2021 AST [Catalytic activity/Vol] 79 U/L Critically high 14-36 [facility] Comment on above: Performed By: #### A LT, LDH, AST, URIC #### [facility] [address] [place], [place] [id number] Anabella Shalonda SGPTon 04-05-2021 ALT [Catalytic activity/Vol] 81 U/L Critically high 9-52 [facility] Comment on above: Performed By: #### A LT, LDH, AST, URIC #### [facility] [address] [place], [place] [id number] Anabella Shalonda TYPE AND SCREENon 04-05-2021 TYPE AND SCREEN Antibody Screen NEGATIVE Blood Bank Notes completed by john ABO Rh Typing O Rh Positive Blood Bank Notes completed by jonh Normal [facility] Comment on above: Performed By: #### A ST, URIC, LDH, ALT #### [facility] [address] [id number] Anabella Shalonda URIC ACID SERUMon 04-05-2021 Urate [Mass/Vol] 7.7 mg/dL Critically high 2.5-6.2 [facility] Comment on above: Performed By: #### A LT, LDH, AST, URIC #### [facility] [address] [place], [place] [id number] Anabella Shalonda BUNon 03-28-2021 Urea nitrogen [Mass/Vol] 7.0 mg/dL Normal 7.0-17.0 [facility] Comment on above: Performed By: #### A ST, URIC, LDH, ALT #### [facility] [address] [place] [address] Anabellacarissa Liz CBC AUTO DIFFon 03-28-2021 BASO # 0.0 103/ul Normal 0.0-0.1 [facility] Comment on above: Performed By: #### A ST, URIC, LDH, ALT #### [facility] [address] [place] [address] Anabellacarissa Liz Basophils/100 WBC (Bld) 0.3 % Normal 0.2-2.0 [facility] Comment on above: Performed By: #### A ST, URIC, LDH, ALT #### [facility] [address] [place] [address] Anabella Shalonda EO # 0.1 103/ul Normal 0.0-0.7 [facility] Comment on above: Performed By: #### A ST, URIC, LDH, ALT #### [facility] [address] [place] [address] Anabella Liz Eosinophils/100 WBC (Bld) 1.1 % Normal 0.9-7.0 [facility] Comment on above: Performed By: #### A ST, URIC, LDH, ALT #### [facility] [address] [place] [address] Anabellacarissa iLz Erythrocyte distribution width (RBC) [Ratio] 14.7 % Normal 11.0-15.0 [facility] Comment on above: Performed By: #### A ST, URIC, LDH, ALT #### [facility] [address] [place] [address] Anabellacarissa Liz Hematocrit (Bld) [Volume fraction] 34.7 % Critically low 36.0-48.0 [facility] Comment on above: Performed By: #### A ST, URIC, LDH, ALT #### [facility] [address] [place] [address] Anabellacarissa Liz Hemoglobin (Bld) [Mass/Vol] 11.4 g/dL Critically low 12.0-16.0 [facility] Comment on above: Performed By: #### A ST, URIC, LDH, ALT #### [facility] [address] [place] [address] Anabella Shalonda IG # 0.09 10e3/ul Critically high 0.00-0.03 [facility] Comment on above: Performed By: #### A ST, URIC, LDH, ALT #### [facility] [address] [address] Anabella Shalonda IG % 0.7 % Critically high 0.0-0.5 [facility] Comment on above: Performed By: #### A ST, URIC, LDH, ALT #### [facility] [address] [place] [address] Anabella Shalonda LYMPH # 2.2 103/ul Normal 1.2-3.8 [facility] Comment on above: Performed By: #### A ST, URIC, LDH, ALT #### [facility] [address] [place] [address] Anabella Shalonda Lymphocytes/100 WBC (Bld) 16.5 % Critically low 20.5-60.0 [facility] Comment on above: Performed By: #### A ST, URIC, LDH, ALT #### [facility] [address] [place] [address] Anabella Shalonda MANUAL DIFF REQ NO Normal [facility] Comment on above: Performed By: #### A ST, URIC, LDH, ALT #### [facility] [address] [place] [address] Anabellacarissa Liz MCH (RBC) [Entitic mass] 30.4 pg Normal 26.7-34.0 [facility] Comment on above: Performed By: #### A ST, URIC, LDH, ALT #### [facility] [address] [place] [address] Anabella Shalonda MCHC (RBC) [Mass/Vol] 32.9 g/dL Normal 29.9-35.2 [facility] Comment on above: Performed By: #### A ST, URIC, LDH, ALT #### [facility] [address] [place] [address] Anabella Shalonda MCV (RBC) [Entitic vol] 92.5 fL Normal 81.0-99.0 [facility] Comment on above: Performed By: #### A ST, URIC, LDH, ALT #### [facility] [address] [place] [address] Anabellacarissa Pierceen MONO # 0.6 103/ul Normal 0.3-0.8 [facility] Comment on above: Performed By: #### A ST, URIC, LDH, ALT #### [facility] [address] [place] [address] Anabellacarissa Pierceen Monocytes/100 WBC (Bld) 4.3 % Normal 1.7-12.0 [facility] Comment on above: Performed By: #### A ST, URIC, LDH, ALT #### [facility] [address] [place] [address] Anabella Shalonda NEUT # 10.2 103/ul Critically high 1.4-6.[address] [facility] Comment on above: Performed By: #### A ST, URIC, LDH, ALT #### [facility] [address] [place] [address] Anabella Pierceen Neutrophils/100 WBC (Bld) 77.1 % Critically high 43.0-75.0 [facility] Comment on above: Performed By: #### A ST, URIC, LDH, ALT #### [facility] [address] [place] [address] Anabellacarissa Pierceen Platelet mean volume (Bld) [Entitic vol] 13.5 fL Normal 9.5-13.5 [facility] Comment on above: Performed By: #### A ST, URIC, LDH, ALT #### [facility] [address] [place] [address] Anabella Shalonda PLT 133 103/ul Critically low 150-450 [facility] Comment on above: Performed By: #### A ST, URIC, LDH, ALT #### [facility] [address] [place] [address] Anabella Shalonda RBC 3.75 106/ul Critically low 4.20-5.40 [facility] Comment on above: Performed By: #### A ST, URIC, LDH, ALT #### [facility] [address] [address] Anabella Shalonda WBC 13.2 103/ul Critically high 4.0-11.[address] [facility] Comment on above: Performed By: #### A ST, URIC, LDH, ALT #### [facility] [address] [place] [address] Anabella Shalonda BASO # 0.1 103/ul Normal 0.0-0.1 [facility] Comment on above: Performed By: #### A ST, URIC, LDH, ALT #### [facility] [address] [place] [address] Anabella Shalonda Basophils/100 WBC (Bld) 0.4 % Normal 0.2-2.0 [facility] Comment on above: Performed By: #### A ST, URIC, LDH, ALT #### [facility] [address] [place] [address] Anabella Shalonda EO # 0.2 103/ul Normal 0.0-0.7 [facility] Comment on above: Performed By: #### A ST, URIC, LDH, ALT #### [facility] [address] [place] [address] Anabella Shalonda Eosinophils/100 WBC (Bld) 1.4 % Normal 0.9-7.0 [facility] Comment on above: Performed By: #### A ST, URIC, LDH, ALT #### [facility] [address] [place] [address] Anabella Shalonda Erythrocyte distribution width (RBC) [Ratio] 14.9 % Normal 11.0-15.0 [facility] Comment on above: Performed By: #### A ST, URIC, LDH, ALT #### [facility] [address] [place] [address] Anabella Shalonda Hematocrit (Bld) [Volume fraction] 36.5 % Normal 36.0-48.0 [facility] Comment on above: Performed By: #### A ST, URIC, LDH, ALT #### [facility] [address] [place] [address] Anabella Shalonda Hemoglobin (Bld) [Mass/Vol] 11.8 g/dL Critically low 12.0-16.0 [facility] Comment on above: Performed By: #### A ST, URIC, LDH, ALT #### [facility] [address] [place] [address] Anabellacarissa Pierceen IG # 0.11 10e3/ul Critically high 0.00-0.03 [facility] Comment on above: Performed By: #### A ST, URIC, LDH, ALT #### [facility] [address] [place] [address] Anabella Shalonda IG % 0.9 % Critically high 0.0-0.5 [facility] Comment on above: Performed By: #### A ST, URIC, LDH, ALT #### [facility] [address] [place] [address] Anabella Shalonda LYMPH # 2.0 103/ul Normal 1.2-3.8 [facility] Comment on above: Performed By: #### A ST, URIC, LDH, ALT #### [facility] [address] [place] [address] Anabella Liz Lymphocytes/100 WBC (Bld) 15.7 % Critically low 20.5-60.0 [facility] Comment on above: Performed By: #### A ST, URIC, LDH, ALT #### [facility] [address] [place] [address] Anabella Liz MANUAL DIFF REQ NO Normal [facility] Comment on above: Performed By: #### A ST, URIC, LDH, ALT #### [facility] [address] [place] [address] Anabella Liz MCH (RBC) [Entitic mass] 30.2 pg Normal 26.7-34.0 [facility] Comment on above: Performed By: #### A ST, URIC, LDH, ALT #### [facility] [address] [place] [address] Anabellacarissa Liz MCHC (RBC) [Mass/Vol] 32.3 g/dL Normal 29.9-35.2 [facility] Comment on above: Performed By: #### A ST, URIC, LDH, ALT #### [facility] [address] [address] Anabella Liz MCV (RBC) [Entitic vol] 93.4 fL Normal 81.0-99.0 [facility] Comment on above: Performed By: #### A ST, URIC, LDH, ALT #### [facility] [address] [place], [place] [address] Anabella Liz MONO # 0.7 103/ul Normal 0.3-0.8 [facility] Comment on above: Performed By: #### A ST, URIC, LDH, ALT #### [facility] [address] [place], [place] [address] Anabellacarissa Pierceen Monocytes/100 WBC (Bld) 5.2 % Normal 1.7-12.0 [facility] Comment on above: Performed By: #### A ST, URIC, LDH, ALT #### [facility] [address] [place] [address] Anabella Shalonda NEUT # 9.5 103/ul Critically high 1.4-6.5 [facility] Comment on above: Performed By: #### A ST, URIC, LDH, ALT #### [facility] [address] [place] [address] Anabella Liz Neutrophils/100 WBC (Bld) 76.4 % Critically high 43.0-75.0 [facility] Comment on above: Performed By: #### A ST, URIC, LDH, ALT #### [facility] [address] [place], [place] [address] Anabellacarissa Liz Platelet mean volume (Bld) [Entitic vol] 13.8 fL Critically high 9.5-13.5 [facility] Comment on above: Performed By: #### A ST, URIC, LDH, ALT #### [facility] [address] [place], [place] [address] Anabella Shalonda PLT 148 103/ul Critically low 150-450 [facility] Comment on above: Performed By: #### A ST, URIC, LDH, ALT #### [facility] [address] [place] [address] Anabella Shalonda RBC 3.91 106/ul Critically low 4.20-5.40 [facility] Comment on above: Performed By: #### A ST, URIC, LDH, ALT #### [facility] [address] [place] [address] Anabella Liz WBC 12.5 103/ul Critically high 4.0-11.0 [facility] Comment on above: Performed By: #### A ST, URIC, LDH, ALT #### [facility] [address] [place] [address] Anabella Liz CHLAMYDIA/GONOCOCCUS PORTILLO (SW AB/URINE/PAPon 03-28-2021 Chlamydia trachomatis, PORTILLO Negative Normal Negative [facility] Comment on above: Performed By: #### C T/NGNA #### [facility] [address] [place] [address] Anabella Liz Neisseria gonorrhoeae, PORTILLO Negative Normal Negative [facility] Comment on above: Performed By: #### C T/NGNA #### [facility] [address] [place] [address] Anabella Liz CREATININE CLEARon 1 CREA CLEARANCE 102.10 ml/min Normal 75.00-115.00 [facility] Comment on above: Performed By: #### A ST, URIC, LDH, ALT #### [facility] [address] [place] [address] Anabella Liz CREA, 24 HR UR 1070.82 mg/24 hr Normal 800.00-1, 800.0 0 [facility] Comment on above: Performed By: #### A ST, URIC, LDH, ALT #### [facility] [address] [place] [address] Anabella Liz Creatinine [Mass/Vol] 0.72 mg/dL Normal 0.52-1.04 [facility] Comment on above: Performed By: #### A ST, URIC, LDH, ALT #### [facility] [address] [place] [address] Anabellacarissa Liz URINE CREAT 19.83 mg/dL Critically low 20.00-300.00 [facility] Comment on above: Performed By: #### A ST, URIC, LDH, ALT #### [facility] [address] [place], [place] [address] Anabella Shalonda LDHon 03-28-2021 LDH 488 U/L Critically high 122-222 [facility] Comment on above: Performed By: #### A ST, URIC, LDH, ALT #### [facility] [address] [place], [place] [address] Anabella Shalonda LDH 517 U/L Critically high 122-222 [facility] Comment on above: Performed By: #### A ST, URIC, LDH, ALT #### [facility] [address] [id number] Anabella Shalonda PROTEIN 24HR URINEon 021 UR PROT <5.0 Normal <=12.0 [facility] Comment on above: Performed By: #### A ST, URIC, LDH, ALT #### [facility] [address] [place] [address] Anabella Shalonda UR TOT VOL 5400 ml/24 HR Normal [facility] Comment on above: Performed By: #### A ST, URIC, LDH, ALT #### [facility] [address] [address] Anabella Shalonda SGOTon 03-28-2021 AST [Catalytic activity/Vol] 83 U/L Critically high [facility] Comment on above: Performed By: #### A ST, URIC, LDH, ALT #### [facility] [address] [place], [place] [address] Anabella Shalonda AST [Catalytic activity/Vol] 85 U/L Critically high [facility] Comment on above: Performed By: #### A ST, URIC, LDH, ALT #### [facility] [address] [place] [address] Anabella Shalonda SGPTon 03-28-2021 ALT [Catalytic activity/Vol] 82 U/L Critically high [facility] Comment on above: Performed By: #### A ST, URIC, LDH, ALT #### [facility] [address] [place], [place] [address] Anabella Shalonda ALT [Catalytic activity/Vol] 85 U/L Critically high [facility] Comment on above: Performed By: #### A ST, URIC, LDH, ALT #### [facility] [address] [address] Anabella Liz TSHon 03-28-2021 TSH 2.728 uIU/mL Normal 0.470-4.680 [facility] Comment on above: Performed By: #### A ST, URIC, LDH, ALT #### [facility] [address] [address] Anabella Liz TSH RANGE SEE BELOW Normal [facility] Comment on above: Result Comment: <0.3 4 UIU/ml HYPERTHYROID 0.34-5.60 UIU/ml EUTHYROID >5.60 UIU/ml HYPOTHYROID Performed By: #### A ST, URIC, LDH, ALT #### [facility] [address] [place] [address] Anabella Liz URIC ACID SERUMon 03-28-2021 Urate [Mass/Vol] 6.9 mg/dL Critically high 2.5-6.2 [facility] Comment on above: Performed By: #### A ST, URIC, LDH, ALT #### [facility] [address] [place] [address] Anabella Liz Urate [Mass/Vol] 7.0 mg/dL Critically high 2.5-6.2 [facility] Comment on above: Performed By: #### A ST, URIC, LDH, ALT #### [facility] [address] [place] [address] Anabella Liz US PREG BIOPHY W NON [...] ANDREW STERLING Date: 2021-03-28 16:40 Normal [facility] US PREG GROWTHon 03-28-2021 US PREG [...] ANDREW STERLING Date: 2021-03-28 16:39 Normal [facility] GROUP B STREP CULTUREon 02-28 S. agalactiae Ag Ql (Unsp spec) Culture Observations: NEGATIVE FOR GROUP B STREPTOCOCCUS. Normal [facility] Comment on above: Performed By: #### A ST, URIC, LDH, ALT #### [facility] [address] [place] [address] Anabella Liz US PREG GROWTHon 02-22-2021 US [...] by: ANDREW STERLING Date: 2021-02-22 07:58 Normal [facility] PAP ACOG PANEL 3: 21 to 29on 11-22-2020 . . Normal [facility] Comment on above: Result Comment: Perf ormed at: WB Performed By: #### A ST, URIC, LDH, ALT #### [facility] [address] [address] Anabella Shalonda Age Gdln ACOG Testing Normal [facility] Comment on above: Performed By: #### A ST, URIC, LDH, ALT #### [facility] [address] [place] [address] Anabella Shalonda Chlamydia, Nuc. Acid Amp Negative Normal Negative [facility] Comment on above: Result Comment: Perf ormed at: =G Performed By: #### A ST, URIC, LDH, ALT #### [facility] [address] [address] Anabella Shalonda DIAGNOSIS: Comment Normal [facility] Comment on above: Result Comment: NEGA TIVE FOR INTRAEPITHELIAL LESION OR MALIGNANCY. Performed at: WB Performed By: #### A ST, URIC, LDH, ALT #### [facility] [address] [address] Anabella Shalonda Gonococcus, Nuc. Acid Amp Negative Normal Negative [facility] Comment on above: Result Comment: Perf ormed at: =G Performed By: #### A ST, URIC, LDH, ALT #### [facility] [address] [address] Anabella Shalonda Methodology: Comment Normal [facility] Comment on above: Result Comment: This liquid based ThinPrep(R) pap test was screened with the use of an image guided system. Performed at: WB Performed By: #### A ST, URIC, LDH, ALT #### [facility] [address] [address] Anabella Shalonda Note: Comment Normal [facility] Comment on above: Result Comment: The [...] #### A ST, URIC, LDH, ALT #### [facility] [address] [place] [address] Anabella Shalonda Performed by: Comment Normal [facility] Comment on above: Result Comment: Halima Alonso, Can Patcher (ASCP) Performed at: WB Performed By: #### A ST, URIC, LDH, ALT #### [facility] [address] [place] [address] Anabella Shalonda Reflex Criteria: Comment Normal [facility] Comment on above: Result Comment: The HPV DNA reflex criteria were not met with this specimen result therefore, no HPV testing was performed. . Performed at: WB Performed By: #### A ST, URIC, LDH, ALT #### [facility] [address] [place] [address] Anabella Shalonda Specimen adequacy: Comment Normal [facility] Comment on above: Result Comment: Sati sfactory for evaluation. Endocervical and/or squamous metaplastic cells (endocervical component) are present. Performed at: WB Performed By: #### A ST, URIC, LDH, ALT #### [facility] [address] [place] [address] Anabella Shalonda BUNon 11-02-2020 Urea nitrogen [Mass/Vol] 8.0 mg/dL Normal 7.0-17.0 [facility] Comment on above: Performed By: #### A ST, URIC, LDH, ALT #### [facility] [address] [place] [address] Anabella Shalonda CBC AUTO DIFFon 11-02-2020 BASO # 0.1 103/ul Normal 0.0-0.1 [facility] Comment on above: Performed By: #### A ST, URIC, LDH, ALT #### [facility] [address] [place], [place] [address] Anabella Shalonda Basophils/100 WBC (Bld) 0.4 % Normal 0.2-2.0 [facility] Comment on above: Performed By: #### A ST, URIC, LDH, ALT #### [facility] [address] [place] [address] Anabella Shalonda EO # 0.1 103/ul Normal 0.0-0.7 [facility] Comment on above: Performed By: #### A ST, URIC, LDH, ALT #### [facility] [address] [place] [address] Anabella Shalonda Eosinophils/100 WBC (Bld) 1.1 % Normal 0.9-7.0 [facility] Comment on above: Performed By: #### A ST, URIC, LDH, ALT #### [facility] [address] [place] [address] Anabellacarissa Pierceen Erythrocyte distribution width (RBC) [Ratio] 13.7 % Normal 11.0-15.0 [facility] Comment on above: Performed By: #### A ST, URIC, LDH, ALT #### [facility] [address] [place] [address] Anabella Shalonda Hematocrit (Bld) [Volume fraction] 36.3 % Normal 36.0-48.0 [facility] Comment on above: Performed By: #### A ST, URIC, LDH, ALT #### [facility] [address] [place] [address] Anabella Shalonda Hemoglobin (Bld) [Mass/Vol] 11.7 g/dL Critically low 12.0-16.0 [facility] Comment on above: Performed By: #### A ST, URIC, LDH, ALT #### [facility] [address] [place] [address] Anabella Shalonda IG # 0.07 10e3/ul Critically high 0.00-0.03 [facility] Comment on above: Performed By: #### A ST, URIC, LDH, ALT #### [facility] [address] [place] [address] Anabella Shalonda IG % 0.5 % Normal 0.0-0.5 [facility] Comment on above: Performed By: #### A ST, URIC, LDH, ALT #### [facility] [address] [place] [address] Anabella Shalonda LYMPH # 2.0 103/ul Normal 1.2-3.8 [facility] Comment on above: Performed By: #### A ST, URIC, LDH, ALT #### [facility] [address] [place] [address] Anabella Shalonda Lymphocytes/100 WBC (Bld) 15.6 % Critically low 20.5-60.0 [facility] Comment on above: Performed By: #### A ST, URIC, LDH, ALT #### [facility] [address] [place] [address] Anabella Shalonda MANUAL DIFF REQ NO Normal [facility] Comment on above: Performed By: #### A ST, URIC, LDH, ALT #### [facility] [address] [place] [address] Anabellacarissa Pierceen MCH (RBC) [Entitic mass] 30.5 pg Normal 26.7-34.0 [facility] Comment on above: Performed By: #### A ST, URIC, LDH, ALT #### [facility] [address] [place] [address] Anabellacarissa Pierceen MCHC (RBC) [Mass/Vol] 32.2 g/dL Normal 29.9-35.2 [facility] Comment on above: Performed By: #### A ST, URIC, LDH, ALT #### [facility] [address] [place] [address] Anabella Shalonda MCV (RBC) [Entitic vol] 94.8 fL Normal 81.0-99.0 [facility] Comment on above: Performed By: #### A ST, URIC, LDH, ALT #### [facility] [address] [place] [address] Anabella Shalonda MONO # 0.5 103/ul Normal 0.3-0.8 [facility] Comment on above: Performed By: #### A ST, URIC, LDH, ALT #### [facility] [address] [place] [address] Anabella Shalonda Monocytes/100 WBC (Bld) 3.6 % Normal 1.7-12.0 [facility] Comment on above: Performed By: #### A ST, URIC, LDH, ALT #### [facility] [address] [id number] Anabella Liz NEUT # 10.1 103/ul Critically high 1.4-6.[address] [facility] Comment on above: Performed By: #### A ST, URIC, LDH, ALT #### [facility] [address] [id number] Anabella Liz Neutrophils/100 WBC (Bld) 78.8 % Critically high 43.0-75.0 [facility] Comment on above: Performed By: #### A ST, URIC, LDH, ALT #### [facility] [address] [place], [place] [id number] Anabella Liz Platelet mean volume (Bld) [Entitic vol] 12.1 fL Normal 9.5-13.5 [facility] Comment on above: Performed By: #### A ST, URIC, LDH, ALT #### [facility] [address] [place], [place] [id number] Anabella Pierceen PLT 195 103/ul Normal 150-450 [facility] Comment on above: Performed By: #### A ST, URIC, LDH, ALT #### [facility] [address] [place], [place] [address] Anabella Pierceen RBC 3.83 106/ul Critically low 4.20-5.40 The [facility] Comment on above: Performed By: #### A ST, URIC, LDH, ALT #### [facility] [address] [place], [place] [id number] Anabellacarissa Pierceen WBC 12.9 103/ul Critically high 4.0-11.[address] [facility] Comment on above: Performed By: #### A ST, URIC, LDH, ALT #### [facility] [address] [place], [place] [id number] Anabella Liz CREATININE CLEARon 1 CREA CLEARANCE 67.48 ml/min Critically low 75.00-115.00 [facility] Comment on above: Performed By: #### A ST, URIC, LDH, ALT #### [facility] [address] [place] [address] Anabella Shalonda CREA, 24 HR UR 461.40 mg/24 hr Critically low 800.00-1 ,800.0 0 [facility] Comment on above: Performed By: #### A ST, URIC, LDH, ALT #### [facility] [address] [place] [address] Anabella Shalonda Creatinine [Mass/Vol] 0.53 mg/dL Normal 0.52-1.04 [facility] Comment on above: Performed By: #### A ST, URIC, LDH, ALT #### [facility] [address] [place] [address] Anabella Shalonda UR TOT VOL 3000 ml/24 HR Normal [facility] Comment on above: Performed By: #### A ST, URIC, LDH, ALT #### [facility] [address] [place] [address] Anabella Shalonda URINE CREAT 15.38 mg/dL Critically low 20.00-300.00 [facility] Comment on above: Performed By: #### A ST, URIC, LDH, ALT #### [facility] [address] [place] [address] Anabella Shalonda LDHon 11-02-2020 LDH 187 U/L Normal 122-222 [facility] Comment on above: Performed By: #### A ST, URIC, LDH, ALT #### [facility] [address] [place] [address] Anabella Shalonda PROTEIN 24HR URINEon 021 T PROT, 24 HR UR 12.0 mg/24 hr Critically low 42.0-225.0 [facility] Comment on above: Performed By: #### A ST, URIC, LDH, ALT #### [facility] [address] [place] [address] Anabella Shalonda UR PROT 0.4 mg/dL Normal <=12.0 [facility] Comment on above: Performed By: #### A ST, URIC, LDH, ALT #### [facility] [address] [place] [address] Anabella Shalonda UR TOT VOL 3000 ml/24 HR Normal [facility] Comment on above: Performed By: #### A ST, URIC, LDH, ALT #### [facility] [address] [place] [address] Anabellacarissa Liz SGOTon 11-02-2020 AST [Catalytic activity/Vol] 19 U/L Normal 14-36 [facility] Comment on above: Performed By: #### A ST, URIC, LDH, ALT #### [facility] [address] [place] [address] Anabella Shalonda SGPTon 11-02-2020 ALT [Catalytic activity/Vol] 19 U/L Normal 9-52 [facility] Comment on above: Performed By: #### A ST, URIC, LDH, ALT #### [facility] [address] [place] [address] Anabellacarissa Pierceen TSHon 11-02-2020 TSH 1.341 uIU/mL Normal 0.470-4.680 [facility] Comment on above: Performed By: #### A ST, URIC, LDH, ALT #### [facility] [address] [place] [address] Anabella Shalonda TSH RANGE SEE BELOW Normal [facility] Comment on above: Result Comment: <0.3 4 UIU/ml HYPERTHYROID 0.34-5.60 UIU/ml EUTHYROID >5.60 UIU/ml HYPOTHYROID Performed By: #### A ST, URIC, LDH, ALT #### [facility] [address] [place] [address] Anabella Shalonda URIC ACID SERUMon 11-02-2020 Urate [Mass/Vol] 3.9 mg/dL Normal 2.5-6.[address] [facility] Comment on above: Performed By: #### A ST, URIC, LDH, ALT #### [facility] [address] [place], [place] [id number] Anabella Shalonda CULTURE URINEon 10-22-2020 CULTURE URINE Culture Observations : No growth. Normal [facility] Comment on above: Performed By: #### A ST, URIC, LDH, ALT #### [facility] [address] [place] [address] Anabella Shalonda UA RANDOM W/MICROSCOPICon BACTERIA TRACE Abnormal NONE SEEN [facility] Comment on above: Performed By: #### A ST, URIC, LDH, ALT #### [facility] [address] [place] [address] Anabella Shalonda Bilirubin Ql (U) Negative Normal NEGATIVE The [facility] Comment on above: Performed By: #### A ST, URIC, LDH, ALT #### [facility] [address] [place], [place] [address] Anabella Shalonda CAST NONE SEEN Normal NONE SEEN [facility] Comment on above: Performed By: #### A ST, URIC, LDH, ALT #### [facility] [address] [place] [address] Anabella Shalonda Clarity (U) CLEAR Normal CLEAR [facility] Comment on above: Performed By: #### A ST, URIC, LDH, ALT #### [facility] [address] [place] [address] Anabella Shalonda Color (U) LT. YELLOW Normal YELLOW [facility] Comment on above: Performed By: #### A ST, URIC, LDH, ALT #### [facility] [address] [place] [address] Anabella Shalonda Crystals LM Nom (Urine sed) NONE SEEN Normal NONE SEEN [facility] Comment on above: Performed By: #### A ST, URIC, LDH, ALT #### [facility] [address] [place] [address] Anabella Shalonda Epithelial cells LM Ql (Urine sed) FEW Abnormal NONE SEEN /RARE [facility] Comment on above: Performed By: #### A ST, URIC, LDH, ALT #### [facility] [address] [place] [address] Anabella Shalonda Glucose Ql (U) Negative Normal NEGATIVE The [facility] Comment on above: Performed By: #### A ST, URIC, LDH, ALT #### [facility] [address] [place] [address] Anabella Shalonda Hemoglobin Ql (U) Negative Normal NEGATIVE [facility] Comment on above: Performed By: #### A ST, URIC, LDH, ALT #### [facility] [address] [address] Anabella Shalonda Ketones Ql (U) Negative Normal NEGATIVE [facility] Comment on above: Performed By: #### A ST, URIC, LDH, ALT #### [facility] [address] [place] [address] Anabella Shalonda LEUKOCYTES SMALL Abnormal NEGATIVE [facility] Comment on above: Performed By: #### A ST, URIC, LDH, ALT #### [facility] [address] [place] [address] Anabella Shalonda MUCOUS NONE SEEN Normal NONE SEEN [facility] Comment on above: Performed By: #### A ST, URIC, LDH, ALT #### [facility] [address] [place] [address] Anabella Shalonda Nitrite Ql (U) Negative Normal NEGATIVE [facility] Comment on above: Performed By: #### A ST, URIC, LDH, ALT #### [facility] [address] [place] [address] Anabella Shalonda pH (U) 6.0 [pH] Normal 5-9 [facility] Comment on above: Performed By: #### A ST, URIC, LDH, ALT #### [facility] [address] [place] [address] Anabella Shalonda RBC 0-2 Normal 0-2 [facility] Comment on above: Performed By: #### A ST, URIC, LDH, ALT #### [facility] [address] [place] [address] Anabella Shalonda SPEC GRAVITY <=1.005 Abnormal 1.005-<=1.025 [facility] Comment on above: Performed By: #### A ST, URIC, LDH, ALT #### [facility] [address] [place] [address] Anabella Shalonda UA PROTEIN Negative Normal NEGATIVE/ TRACE [facility] Comment on above: Performed By: #### A ST, URIC, LDH, ALT #### [facility] [address] [place] [address] Anabella Shalonda Urobilinogen Qn (U) 0.2 {Rebecca'U}/dL Normal 0.2 - 1. 0 [facility] Comment on above: Performed By: #### A ST, URIC, LDH, ALT #### [facility] [address] [address] Anabella Liz WBC 5-10 Abnormal NONE SEEN [facility] Comment on above: Performed By: #### A ST, URIC, LDH, ALT #### [facility] [address] [place], [place] [address] Anabella Liz US PREG DATING >14WEEKSon US [...] ANDREW STERLING Date: 2020-10-18 10:41 Normal [facility] CNOVon 02-23-2017 CNOV Office Visit (OBGYCC) ----LILIBETH VILLAFUERTE ([id number]) 1995 FDate Time Provider Department02/23/17 10:50 AM MATTI VENEGAS [facility] During your visit today, we recorded the [...] B96.89 (primarydiagnosis)Cou nseled in lengthDeclines referral to Outreach Team Member ID for nowWants to come back when she thinks that she has an active infection to confirmthe Dx.2. Genital herpes simplex, unspecified site - ICD9: 054.10, ICD10: A60.00As above.Spent 30 minutes with pt face to face. 20 minutes of that time was spent incounsPerri Gallegos Provider: RADHA MEMBRENO [[id number]]Allergies As of Date: 02/23/2017(Not on File)Date Reviewed: 02/23/2017Reviewed by: Gail Benavidez WORK COUNSELOR - Fully AssessedReason for Visit: Consult [502] Cmt: chronic BV and herpes outbreaksPrimary Visit Diagnosis:Bacterial vaginosis [N76.0, B96.89] Other Visit Diagnosis:Genital herpes simplex, unspecified site [A60.00]Problem List As Of Date: 02/23/2017(None)[place] [facility] Number: [id number] Status:Closed by MATTI VENEGAS MD on 02/23/17 [facility]LILIBETH VILLAFUERTE ([id number]) 1995 [facility] Time Provider Department02/23/17 MATTI VENEGAS [facility] During your visit today, we recorded the [...] states she has an appt with herprimary RESAW MACHINE OPERATOR doctor Sunday and will get her shot then.Allergies As of Date: 02/23/2017(Not on File)Date Reviewed: 02/23/2017Reviewed by: Gail Benavidez LPN - Fully AssessedReason for Visit: Question [3937]Problem List As Of Date: 02/23/2017(None)[place] [facility] Number: [id number] Status:Closed by MATTI VENEGAS MD on 02/26/17 Normal [facility] PROGRESSon 02-23-2017 PROGRESS HNO ID: [id number]: Matti Garciaervice: (none)Author Type: PhysicianType: Progress NotesFiled: [...] N76.0, B96.89(primary diagnosis)Counseled in lengthDeclines referral to Outreach Team Member ID for nowWants to come back when she thinks that she has an active infection toconfirm the Dx.2. Genital herpes simplex, unspecified site - ICD9: 054.10, ICD10: A60.00As above.Spent 30 minutes with pt face to face. 20 minutes of that time was spentin Linn Venegas MD Normal [facility] Vital Signs Date Time Vital Sign Value Performing Clinician Rupert pascual 02-18-2025 14:05-0400 Body weight 62.32 kg Sandhya CREWS Work Phone: [facility] 02-18-2025 14:05-0400 Diastolic blood pressure 78 mm[Hg] Sandhya CREWS Work Phone: [facility] 02-18-2025 14:05-0400 Systolic blood pressure 118 mm[Hg] Sandhya CREWS Work Phone: [facility] 09-05-2023 16:27-0500 Body weight 65.5 kg Jane Gricelda DO Work Phone: [facility] 09-05-2023 16:27-0500 Diastolic blood pressure 60 mm[Hg] Jane Gricelda DO Work Phone: [facility] 09-05-2023 16:27-0500 Systolic blood pressure 102 mm[Hg] Jane Gricelda DO Work Phone: [facility] Encounters Encounter Date Encounter Type Care Provider Facility Start: 02-18-2025 End: 02-18-2025 Bamboo flowsheet Sandhya CREWS Work Phone: [facility] Start: 02-18-2025 End: 02-18-2025 Bamboo flowsheet Sandhya CREWS Work Phone: [facility] Start: 02-18-2025 End: 02-18-2025 Patient encounter procedure Sandhya CREWS Work Phone: [facility] Work Phone: Start: 02-18-2025 End: 02-18-2025 Periodic preventive med est patient 18-39 yrs Sandhya CREWS Work Phone: [facility] Comment on above: Well woman exam with routine gynecological exam Start: 12-31-2023 End: 12-31-2023 ambulatory JANE GRICELDA Not Available Start: 11-12-2023 End: 11-12-2023 ambulatory JANE GRICELDA Not Available Start: 11-07-2023 End: 11-07-2023 ambulatory SANDHYA REHAN Not Available Start: 11-01-2023 End: 11-01-2023 ambulatory JANE GRICELDA Not Available Start: 10-25-2023 End: 10-25-2023 ambulatory JANE GRICELDA Not Available Start: 10-18-2023 End: 10-18-2023 ambulatory JANE GRICELDA Not Available Start: 10-04-2023 End: 10-04-2023 ambulatory JANE GRICELDA Not Available Start: 09-19-2023 End: 09-19-2023 ambulatory JANE GRICELDA Not Available Start: 09-05-2023 End: 09-05-2023 flow sheet Jane Gricelda DO Work Phone: [facility] Comment on above: Third trimester preg ankur; Genital 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 Start: 09-05-2023 End: 09-05-2023 ambulatory JANE GRICELDA Not Available Start: 08-22-2023 End: 08-22-2023 ambulatory SANDHYA REHAN Not Available Start: 08-09-2023 End: 08-10-2023 ambulatory JANE R GRICELDA [facility] Start: 07-25-2023 End: 07-25-2023 ambulatory JANE GRICELDA Not Available Start: 06-27-2023 End: 06-27-2023 ambulatory SANDHYA REHAN Not Available Start: 04-05-2021 End: 04-07-2021 Evaluation and management of inpatient DR JANE MADISON Facility:[facility] Start: 04-01-2021 End: 04-01-[address] JANE MADISON Facility:[facility] Start: 03-31-2021 Evaluation and manag ement of inpatient RADHA MEMBRENO Facility:[facility] Start: 03-28-2021 [...] Start: 02-23-2017 End: 02-23-2017 Amb[facility] Procedures Date Procedure Procedure Detail Performing Clinician Start: 09-05-2023 Urnls dip stick/tabl et rgnt non-auto w/o micrscp Jane Madison DO Work Phone: Start: 05-28-2023 Microscopic observat ion [Identifier] in Cervix by Cyto stain Sandhya CREWS Work Phone: Start: 04-05-2021 Delivery of Products of Conception, External Approach DR ANDREW STERLING Plan of Treatment Date Care Activity Detail Author Start: 05-28-2026 Screening for malign ant neoplasm of cervix [facility] Start: 02-23-2026 End: 02-23-2026 Patient encounter procedure 02/23/2026 8:30 AM EDT Procedure Visit [facility] [address] [place] [address] Jane Madison, DO [address] [place] [address] [facility] Start: 03-30-2025 Influenza vaccination Influenza Vacc ine (#1) [facility] Start: 02-18-2025 End: 02-18-2025 Patient encounter procedure 02/18/2025 2:00 PM EDT Office Visit [facility] [address] [place] [address] Sandhya Van PA [address] [place] [address] Arrived [facility] Comment on above: Arrived Start: 12-09-2023 Screening for malign ant neoplasm of cervix HPV/Cotest [facility] Start: 09-19-2023 End: 09-19-2023 Patient encounter procedure 09/19/2023 3:30 PM EST Routine [facility] [address] [place] [id number] Jane Madison DO [address] [place] [address] [facility] Start: 03-30-2023 Influenza vaccination Influenza Vacc ine (#1) [facility] Cytology Cervical or vaginal smear or scraping study Pap Smear Pathology and Cytology Routine Well woman exam with routine gynecological exam Ordered: 02/18/2025 [facility] Work Phone: Comment on above: Ordered: 02/18/2025 Human papilloma viru s DNA [Presence] in Unspecified specimen by Probe with amplification HPV DNA probe, amplified Microbiology Routine Well woman exam with routine gynecological exam Ordered: 02/18/2025 [facility] Comment on above: Ordered: 02/18/2025 Payers Date Payer Category Payer Private Health Insurance [employer] [id number] 2022 Medicaid [facility] [employer] BCBS [place]ICA[place] [id number] 2022-Present [address] [place] [address] [id number] 2021 Managed Care HMO (unspecified) STACI SMALL [id number] 2021-Present [address] [place] [address] HMO [id number] 2021 Private Health Insurance [id number] 1995 Unknown [id number] 2.16.840.1.582128.3.579.2. 593 1993 Unknown [id number] 2.16.840.1.809987.3.579.2. 593 1993 Unknown [id number] 2.16.840.1.133245.3.579.2. 593 1993 Unknown [id number] 2.16.840.1.474309.3.579.2. 593 1993 Unknown [id number] 2.16.840.1.453746.3.579.2. 593 1993 Unknown [id number] 2.16.840.1.166243.3.579.2. 593 1993 Unknown [id number] 2.16.840.1.740847.3.579.2. 593 1993 Unknown [id number] 2.16.840.1.875489.3.579.2. 593 1993 Unknown [id number] 2.16.840.1.515452.3.579.2. 593 1993 Unknown [id number] 2.16.840.1.868516.3.579.2. 593 1993 Unknown [id number] 2.16.840.1.864103.3.579.2. 593 1993 Unknown [id number] 2.16.840.1.822654.3.579.2. 1286 1993 Unknown [id number] 2.16.840.1.854991.3.579.2. 1258 1993 Unknown [id number] 2.16.840.1.725314.3.579.2. 1258 1993 Unknown [id number] 2.16.840.1.807927.3.579.2. 1258 1993 Unknown [id number] 2.16.840.1.400732.3.579.2. 1258 1993 Unknown [id number] 2.16.840.1.771313.3.579.2. 1258 1993 Unknown [id number] 2.16.840.1.935618.3.579.2. 1258 1993 Unknown [id number] 2.16.840.1.259691.3.579.2. 1258 1993 Unknown [id number] 2.16.840.1.780273.3.579.2. 1258 1993 Unknown [id number] 2.16.840.1.715410.3.579.2. 1258 1993 Unknown [id number] 2.16.840.1.724902.3.579.2. 1258 1993 Unknown [id number] 2.16.840.1.546973.3.579.2. 1258 1993 Unknown [id number] 2.16.840.1.509853.3.579.2. 9 1961 Medicaid [id number] 1961 Unknown [id number] 1961 Unknown [id number] Social History Date Type Detail Facility Tobacco smoking stat [facility] Tobacco smoking consumption unknown [facility] Start: 02-20-2023 [facility] Start: 1995 Sex Assigned At Female [facility] Start: 04-25-2023 Gender identity Identifies as female gender (finding) [facility] Start: 04-25-2023 Sexual orientation Heterosexual (fin ding) [facility] History of Present illness Narrative 02-18-2025 ELEONORA Cano - 02/18/2025 2:00 PM EDT Note Date & Type Note Facility 02-18-2025 History of Presen t illness Narrative Reason for Appointment: Patient ID: Lilibeth Vasquez is a 29 y.o. female who presents for Well Women Visit Patient presents today for Annual Exam. MEDICATIONS Current Outpatient Medications Medication Instructions aspirin 81 mg, Oral, Daily RT D-Vi-Jacqui 10 MCG/ML liquid DSS 100 mg, Oral, 2 times daily fluocinonide (Lidex) 0.05 % cream 1 application , Topical, Daily PRN Hydrocort-Pramoxine, Perianal, (Proctofoam HC) 1-1 % foam 0.5 g, Apply externally, Every 72 hours PRN ibuprofen 800 mg, Oral, Every 8 hours norethindrone (MICRONOR) 0.35 mg, Oral, Daily, Take 1 tablet by mouth daily omeprazole (PRILOSEC) 20 mg, Oral, Daily before breakfast, Do not crush or chew. MV-Min-Fe Fum-FA-DHA ( 1 PO) Oral Sulfacetamide Sodium 10 % cream Topical tretinoin (Retin-A) 0.025 % cream Topical, Daily PRN ALLERGIES No Known Allergies PROBLEMS Active Ambulatory Problems Diagnosis Date Noted SGA (small for gestational age) ([facility]) 10/04/2023 Third trimester ([facility]) 10/04/2023 Heartburn during in second trimester ([facility]) 10/16/2023 Resolved Ambulatory Problems Diagnosis Date Noted No Resolved Ambulatory Problems Past Medical History: Diagnosis Date Herpes HISTORY PAST MEDICAL HISTORY SOCIAL HISTORY Past Medical History: Diagnosis Date Herpes Social History Tobacco Use Smoking status: Not on file Smokeless tobacco: Not on file Substance Use Topics Alcohol use: Not on file Drug use: Not on file FAMILY HISTORY Family History Problem Relation Name Age of Onset Hydrocele Son SURGICAL HISTORY History reviewed. No pertinent surgical history. REVIEW OF SYSTEMS Review of Systems: Review of Systems Constitutional: Negative. HENT: Negative. Eyes: Negative. Respiratory: Negative. Cardiovascular: Negative. Gastrointestinal: Negative. Genitourinary: Negative. Musculoskeletal: Negative. Skin: Negative. Neurological: Negative. All other systems reviewed and are negative. Hematological: Negative. Endocrine: Negative. Allergic/Immunologic: Negative. OBJECTIVE Objective: Physical Exam Constitutional: Appearance: Normal appearance. She is normal weight. Genitourinary: Right Adnexa: not tender and no mass present. Left Adnexa: not tender and no mass present. No cervical discharge. Breasts: Breasts are soft. Right: Normal. Left: Normal. HENT: Head: Normocephalic. Nose: Nose normal. Mouth/Throat: Mouth: Mucous membranes are moist. Cardiovascular: Rate and Rhythm: Normal rate. Pulses: Normal pulses. Pulmonary: Effort: Pulmonary effort is normal. Breath sounds: Normal breath sounds. Abdominal: General: Bowel sounds are normal. Palpations: Abdomen is soft. Musculoskeletal: General: Normal range of motion. Cervical back: Normal range of motion. Neurological: General: No focal deficit present. Mental Status: She is alert and oriented to person, place, and time. Skin: General: Skin is warm and dry. Psychiatric: Mood and Affect: Mood normal. Behavior: Behavior normal. Thought Content: Thought content normal. Judgment: Judgment normal. Vitals and nursing note reviewed. Exam conducted with a rigging loft mechanic present. Vitals: There is no height or weight on file to calculate BMI. BP: 118/78 No LMP recorded. ASSESSMENT & PLAN ICD-10-CM 1. Well woman exam with routine gynecological exam Z01.419 Pap Smear HPV DNA probe, amplified Annual Exam: Patient presents today for an annual exam. Patient states she is doing well and has no complaints. Pap was obtained without difficulty. Orders Placed This Encounter Procedures HPV DNA probe, amplified Follow Up: Patient is to return in one year for annual unless needed otherwise. Documented by ELEONORA Cano on behalf of: ELEONORA Cano documented in this encounter [facility] History of Present illness Narrative [...] trimester documented in this encounter [facility] Evaluation note Note Date & Type Note Facility Evaluation note Diagnosis Well woman exam with routine gynecological exam Routine gynecological examination documented in this encounter [facility] Summary Purpose Family History No Family History Records FoundNo Family History Records FoundNo Family History Records FoundNo Family History Records Found Advance Directives No Advanced Directives Records FoundNo Advanced Directives Records FoundNo Advanced Directives Records FoundNo Advanced Directives Records Found Additional Source Comments INFORMATION SOURCE (unrecogn ized section and content) DATE CREATED AUTHOR 01/23/2018 [facility] DATE CREATED AUTHOR AUTHOR'S ORGANIZ ATION 04/16/2021 [facility] DATE CREATED AUTHOR AUTHOR'S ORGANIZ ATION 08/12/2023 [facility] DATE CREATED AUTHOR AUTHOR'S ORGANIZ ATION 12/31/2023 [facility] EPIC Reason for Visit (unrecogniz ed section and content) Reason Comments Routine Visit Reason Comments Well Women Visit Care Teams (unrecognized sec tion and content) Residential Real Estate Assistant Relationship Specialty Start Date End Date Vincent Min MD [address] [place] [phone] PCP - General Family Medicine 08/22/23 Residential Real Estate Assistant Relationship Specialty Start Date End Date Vincent Min MD [address] [place] [phone] PCP - General Family Medicine 08/22/23 Residential Real Estate Assistant Relationship Specialty Start Date End Date Vincent Min MD [address] [place] [phone] PCP - General Family Medicine 08/22/23 FOR [...] BE BASED ON THE PRIMARY CLINICAL RECORDS. [employer] [facility]. provides no warranty or guarantee of the accuracy or completeness of information in this document.
[2025-02-24 10:13] LABS: Age Gdln ACOG Testing Note (.); IGP, Aptima HPV, rfx 16/18,45 Note (.)
== END 2025-02-18 19:42 | disposition home or self-care (01) ==
LOC: LAB 19:41
PROVIDERS: Visit Provider Physician Assistant
DX: Z01.419 Encounter for gynecological examination (general) (routine) without abnormal findings (principal)
CPT/HCPCS: 87624; 88175